=== PATIENT | male | born 1965 | race Caucasian/White ===

== ENCOUNTER 2022-06-27 10:00 | Emergency (ER) | payer MEDICAID, SELFPAY ==
[2022-06-27 10:09] VITALS: BP 121/89; PULSE 100; RESP 18; TEMP 36.1; O2SAT 92; BMI 25.8
[2022-06-27] MEDS: 0.9 % SODIUM CHLORIDE 1000 ml 1,000 ML 500 ML IV (10:40)
[2022-06-27] MEDS: ONDANSETRON 2 MG/ML inj 4 MG IVP (10:41)
--- NOTE | 2022-06-27 10:44 | ED.GENADULT ---
HPI - General Adult General Time Seen by Provider: 10:44 Date Seen: 06/27/22 Chief complaint: Nausea/Vomiting Stated complaint: Flu like symptoms Time Seen by Provider: 06/27/22 10:29 Source: patient and RN notes reviewed Mode of arrival: ambulatory Limitations: no limitations History of Present Illness HPI narrative: Patient is a 57-year-old male coming in with fevers, nausea, vomiting, diarrhea. On at work after lunch just started to feel really fatigued. Diarrhea ensued after that. Diarrhea is nonbloody. He had nausea and diminished oral intake. He started having vomiting today. No blood in the vomit. Has not been able to really take much in. No coughing. Does have a headache with this. He has had temperatures maybe up to 100? F at home. Has not had any nasal congestion or sore throat. He has had no travel, not aware of ill contacts. States he had COVID when it 1st came out and had a mild coarse. He has had this illness going on close to 2 days now. Denies any abdominal pain with this. Related Data Home Medications Medication Instructions Recorded Confirmed atorvastatin 20 mg tablet 20 mg PO QPM 06/17/22 sildenafil 100 mg tablet 100 mg PO QDAY PRN 06/17/22 tamsulosin 0.4 mg capsule 0.4 mg PO QDAY 06/17/22 Previous Rx's Medication Instructions Recorded bupropion HCl 200 mg tablet,12 hr 200 mg PO BID #180 tabs 06/17/22 sustained-release doxycycline monohydrate 100 mg 100 mg PO BID 10 days #20 caps 06/27/22 capsule ondansetron 4 mg disintegrating 4 mg PO Q6H PRN nausea and 06/27/22 tablet vomiting #20 tabs Allergies Allergy/AdvReac Type Severity Reaction Status Date / Time No Known Drug Allergies Allergy Verified 06/27/22 11:55 Review of Systems Status of ROS: Reports: 10 or more systems reviewed and unremarkable except as noted in History and below Exam Const: Vital Signs, click to edit/add: Vital Signs - 24 hr 06/27/22 10:09 Temperature 96.9 F L Pulse Rate [Right Pulse Oximeter] 100 Respiratory Rate 18 Blood Pressure [Ri ght Upper Arm] 121/89 Pulse Oximetry 92 Oxygen Delivery Me thod Room Air Documenting provider has reviewed patient's vital signs: yes Common normals: no apparent distress, average body habitus, oriented x3, no limitations, healthy appearing and alert General appearance: cooperative, comfortable and diaphoretic Nutritional appearance: thin HENMT: Common normals: normocephalic, head/scalp atraumatic, hearing grossly normal bilaterally, external ears normal, external nose normal, nasal mucous membranes and turbinates normal, moist oral mucous membranes, oropharynx normal, dentition normal and gingiva normal Head and scalp: normocephalic and atraumatic Nose: external nose normal and nasal mucous membranes and turbinates normal External ear: external ears normal Eye: Common normals: PERRL, EOMs intact bilaterally, conjunctivae normal and no scleral icterus Conjunctiva: conjunctiva(e) normal Pupil: PERRL Neck & C-Spine: Common normals: full ROM, no lymphadenopathy, supple, no meningeal signs, no JVD and thyroid normal Thyroid: thyroid normal Resp: Common normals: normal respiratory effort, no retractions, no use of accessory muscles and clear to auscultation bilaterally Auscultation: clear to auscultation bilaterally Cardio: Common normals: no JVD, regular rate, regular rhythm, S1 normal heart sound, S2 normal heart sound, no gallops, no clicks and no murmurs Rate: regular rate Rhythm: regular rhythm Heart sounds: S1 normal and S2 normal GI: Common normals: Normal to inspection, nondistended, normoactive bowel sounds present, soft to palpation, non-tender, no hepatosplenomegaly, no masses and no bruits Palpation: soft and no hepatosplenomegaly Neuro: Common normals: oriented x3 Sensorium/orientation: alert Meningeal signs: no meningeal signs Course Course Hospital Course: Reviewed with patient that this certainly sounds viral. We will check COVID, I checked basic labs. We will start an IV and give him a L normal saline over 2 hours, 4 mg IV Zofran and 15 mg IV Toradol. This time he does not seem to need any imaging, abdominal exam is benign on palpation and no abdominal pain. Reevaluation(s) Reevaluation #1: Reviewed with patient his elevated white blood count and significantly elevated CRP. We will proceed with CT abdomen pelvis with IV contrast. I have ordered for ova parasite, stool culture and C difficile study. He has never had a diagnosis of C difficile colitis prior. He has had no recent antibiotic use. Time: 11:45 Reevaluation #2: Reviewed with patient that on my preliminary review of his chest x-ray there is significant right-sided lower lobe pneumonia. I am going to give him IV doxycycline to ensure that he can tolerate it. He will discharge to home likely at this point. Time: 13:18 Vital Signs Vital signs: Initial Vital Signs Temperature 96.9 F L 06/27/22 10:09 Temperature Source Temporal Artery Scan 06/27/22 10:09 Pulse Rate 100 06/27/22 10:09 Respiratory Rate 18 06/27/22 10:09 Blood Pressure 121/89 06/27/22 10:09 Blood Pressure Mean 99 06/27/22 10:09 Blood Pressure Position Sitting 06/27/22 10:09 Pulse Oximetry 92 06/27/22 10:09 Oxygen Delivery Method 06/27/22 10:09 Vital Signs Temperature 96.9 F L 06/27/22 10:09 Pulse Rate 100 06/27/22 10:09 Respiratory Rate 18 06/27/22 10:09 Blood Pressure 121/89 06/27/22 10:09 Pulse Oximetry 92 06/27/22 10:09 Oxygen Delivery Method 06/27/22 10:09 Temperature 96.9 F L 06/27/22 10:09 Pulse Rate 100 06/27/22 10:09 Respiratory Rate 18 06/27/22 10:09 Blood Pressure 121/89 06/27/22 10:09 Pulse Oximetry 92 06/27/22 10:09 Oxygen Delivery Method 06/27/22 10:09 Medical Decision Making Lab Data Lab results reviewed: Yes I reviewed the patient's lab results Labs: Lab Results 06/27/22 06/27/22 06/27/22 Range/Units 10:15 10:40 10:40 WBC 15.86 H (4.50-11.00) K/uL RBC 5.77 (4.30-5.90) m/uL Hgb 17.0 (13.5-17.5) gm/dL Hct 49.2 (37.0-53.0) % MCV 85 (80-100) fL MCH 30 (26-34) pg MCHC 35 (32-36) gm/dL RDW Coeff of Aga 12.9 (11.5-15.5) % Plt Count 171 (140-440) K/uL Neut % (Auto) 89.6 H (42.0-72.0) % Lymph % (Auto) 2.8 L (20-44) % [place] % (Auto) 6.4 (0.0-11.0) % Eos % (Auto) 0.5 (0.0-7.0) % Baso % (Auto) 0.1 (0.0-3.0) % Neut # (Auto) 14.20 H (1.7-7.0) K/uL Lymph # (Auto) 0.40 L (0.90-2.90) K/uL [place] # (Auto) 1.00 H (0.00-0.90) K/UL Eos # (Auto) 0.10 (0.00-0.50) K/uL Baso # (Auto) 0.00 (0.00-0.30) K/uL Abs Immat Gran (auto) 0.10 (0.00-0.30) K/uL Sodium 131 L (135-149) mmol/L Potassium 3.6 (3.6-5.1) mmol/L Chloride 96 (96-114) mmol/L Carbon Dioxide 25 (20-32) mmol/L BUN 23 (7-30) mg/dL Creatinine 1.1 (0.5-1.5) mg/dL Estimated Creat Clear 74.09 Estimated GFR 78 ml/min Glucose 154 H (60-115) mg/dL Lactate (0.5-1.9) mmol/L Calcium 8.8 (8.4-10.6) mg/dL Total Bilirubin 0.5 (0.1-1.5) mg/dL AST 28 (12-35) U/L ALT 24 (4-50) U/L Alkaline Phosphatase 77 (40-150) U/L C-Reactive Protein 26.4 H (0.5-1.0) mg/dL Total Protein 7.8 (6.0-8.3) g/dL Albumin 4.3 (3.3-5.0) g/dL SARS-CoV-2 (PCR) Negative SARS-CoV-2 (Negative) Influenza Type A (PCR) Negative PCR FLU A (Negative) Influenza Type B (PCR) Negative PCR FLU B (Negative) RSV (PCR) Negative PCR RSV (Negative) 06/27/22 Range/Units 10:40 WBC (4.50-11.00) K/uL RBC (4.30-5.90) m/uL Hgb (13.5-17.5) gm/dL Hct (37.0-53.0) % MCV (80-100) fL MCH (26-34) pg MCHC (32-36) gm/dL RDW Coeff of Aga (11.5-15.5) % Plt Count (140-440) K/uL Neut % (Auto) (42.0-72.0) % Lymph % (Auto) (20-44) % [place] % (Auto) (0.0-11.0) % Eos % (Auto) (0.0-7.0) % Baso % (Auto) (0.0-3.0) % Neut # (Auto) (1.7-7.0) K/uL Lymph # (Auto) (0.90-2.90) K/uL [place] # (Auto) (0.00-0.90) K/UL Eos # (Auto) (0.00-0.50) K/uL Baso # (Auto) (0.00-0.30) K/uL Abs Immat Gran (auto) (0.00-0.30) K/uL Sodium (135-149) mmol/L Potassium (3.6-5.1) mmol/L Chloride (96-114) mmol/L Carbon Dioxide (20-32) mmol/L BUN (7-30) mg/dL Creatinine (0.5-1.5) mg/dL Estimated Creat Clear Estimated GFR ml/min Glucose (60-115) mg/dL Lactate 1.6 (0.5-1.9) mmol/L Calcium (8.4-10.6) mg/dL Total Bilirubin (0.1-1.5) mg/dL AST (12-35) U/L ALT (4-50) U/L Alkaline Phosphatase (40-150) U/L C-Reactive Protein (0.5-1.0) mg/dL Total Protein (6.0-8.3) g/dL Albumin (3.3-5.0) g/dL SARS-CoV-2 (PCR) (Negative) Influenza Type A (PCR) (Negative) Influenza Type B (PCR) (Negative) RSV (PCR) (Negative) Imaging Data CT scan - abdomen: Attestation: I have reviewed the pertinent imaging results. Radiologist's impression: Patient: DIMA SHEPHERD Facility:?[facility] Patient ID:?[id number] Site Patient ID:?[id number]. Site :?[id number] Study:?CT Abdomen/Pelvis W ISOVUE 370-06/27/2022 12:04:49 PM Ordering Physician:Issa Lubin Final Report: INDICATION: Diarrhea, leukocytosis. TECHNIQUE: CT abdomen and pelvis with intravenous contrast, 85 mL of Isovue-370. Coronal and sagittal reformats. COMPARISON: CT 12/13/2016. FINDINGS: Partially imaged consolidation and heterogeneous ground-glass opacities in the imaged posterior right lower lobe. Normal liver contour. No suspicious hepatic lesion. The portal and hepatic veins are patent. No biliary dilatation. The gallbladder, pancreas, spleen, and adrenals are unremarkable. Symmetric renal enhancement. No hydronephrosis bilaterally. Unremarkable bladder and prostate. Scattered colonic diverticulosis without acute inflammatory changes. The bowel appears normal in caliber and enhancement diffusely. No free air, free fluid, focal collection, or lymphadenopathy. Normal caliber abdominal aorta with mild-moderate atherosclerotic changes. Lower lumbar spondylosis. IMPRESSION: 1. Posterior right lower lobe heterogeneous opacities are partially imaged and nonspecific, but suspicious for pneumonia. 2. No acute abdominal/pelvic findings. Dictated by Mark Ramos MD @ 06/27/2022 12:31:44 PM Please note that all CT scans at this facility use dose modulation, iterative reconstruction, and/or weight-based dosing when appropriate to reduce radiation dose to as low as reasonably achievable. Dictated by: Mark Ramos MD @ 06/27/2022 12:31:48 (Electronic Signature) Chest x-ray: Attestation: I have reviewed the pertinent imaging results. Radiologist's impression: Patient: DIMA SHEPHERD Facility:?[facility] Patient ID:?[id number] Site Patient ID:?[id number]. Site :?[id number] Study:?XRay Chest -06/27/2022 12:55:32 PM Ordering Physician:Issa Lubin Final Report: INDICATION: Abnormal abdominal CT with pathology in the lower lobe right lung. COMPARISON: CT abdomen and pelvis June 27, 2022. TECHNIQUE: Portable AP chest. FINDINGS: Even though there is infiltrate in the right lower lobe, without lateral radiograph difficult to adequately evaluate. No pneumothorax or pleural effusion. Normal size cardiac silhouette. IMPRESSION: Pneumonic infiltrates right lower lobe. Dictated by Vinh Cardenas MD @ 06/27/2022 1:16:47 PM (Electronic Signature) Critical Care Time Critical Care Time Critical Care Time: No Discharge Plan Discharge Clinical Impression: Nausea, vomiting, and diarrhea, Community acquired pneumonia of right lower lobe of lung Patient Disposition: Home, Self-Care Condition: Stable Instructions: Community Acquired Pneumonia (ED) Additional Instructions: Next dose of oral antibiotic to be taken this evening, then take twice daily until completed. Can use the ondansetron to help with any further nausea, followup prescription instructions. Recheck in clinic in the next week. If you do are not improving as far as nausea vomiting or diarrhea and unable to take oral antibiotics, develop difficulty breathing or shortness of breath, do need to be re-evaluated. Activity Level: Activity as Tolerated Prescriptions: New doxycycline monohydrate 100 mg capsule 100 mg PO BID 10 Days Qty: 20 0RF ondansetron 4 mg tablet,disintegrating 4 mg PO Q6H PRN (Reason: nausea and vomiting) Qty: 20 0RF No Action atorvastatin 20 mg tablet 20 mg PO QPM sildenafil 100 mg tablet 100 mg PO QDAY PRN Rx Instructions: administer 30 minutes to 4 hours before activity tamsulosin 0.4 mg capsule 0.4 mg PO QDAY bupropion HCl 200 mg tablet sustained-release 12 hr 200 mg PO BID Qty: 180 3RF Follow Up/Referrals: Ananda Richardson MD [Primary Care Provider] - Stand Alone Forms: [employer] Info Instructions
[2022-06-27] MEDS: KETOROLAC 15 MG/ML inj IVP (10:58)
[2022-06-27 10:59] LABS: Lactate* 1.6 mmol/L (0.5-1.9)
[2022-06-27 11:03] LABS: Basophils Percent Auto 0.1 % (0.0-3.0); Eosinophils Percent Auto 0.5 % (0.0-7.0); Hematocrit 49.2 % (37.0-53.0); Lymphocytes Percent Auto 2.8 % (20-44); Mean Corpuscular HGB Conc 35 gm/dL (32-36); Mean Corpuscular Hemoglobin 30 pg (26-34); Mean Corpuscular Volume 85 fL (80-100); Monocytes Percent Auto 6.4 % (0.0-11.0); Neutrophils Percent Auto 89.6 % (42.0-72.0); Platelet Count* 171 K/uL (140-440); RDW Coefficient of Variation % 12.9 % (11.5-15.5); Red Blood Count 5.77 m/uL (4.30-5.90); White Blood Count* 15.86 K/uL (4.50-11.00)
[2022-06-27 11:04] LABS: PCR FLU A Negative PCR FLU A (Negative); PCR FLU B Negative PCR FLU B (Negative); PCR RSV Negative PCR RSV (Negative)
[2022-06-27 11:10] LABS: Slide Review Reflex No
[2022-06-27 11:15] LABS: Chloride* 96 mmol/L (96-114)
[2022-06-27 11:16] LABS: Albumin* 4.3 g/dL (3.3-5.0); Potassium* 3.6 mmol/L (3.6-5.1); Sodium* 131 mmol/L (135-149)
[2022-06-27 11:18] LABS: Creatinine* 1.1 mg/dL (0.5-1.5); Est. Creatinine Clearance* 74.09; Estimated Glomerular Filt Rate 78 ml/min
[2022-06-27 11:19] LABS: Alanine Aminotransferase* 24 U/L (4-50); Alkaline Phosphatase* 77 U/L (40-150); Aspartate Amino Transferase* 28 U/L (12-35); Bilirubin Total* 0.5 mg/dL (0.1-1.5); Blood Urea Nitrogen* 23 mg/dL (7-30); Calcium* 8.8 mg/dL (8.4-10.6); Carbon Dioxide* 25 mmol/L (20-32); Glucose* 154 mg/dL (60-115); Total Protein* 7.8 g/dL (6.0-8.3)
[2022-06-27 11:34] LABS: C Reactive Protein* 26.4 mg/dL (0.5-1.0)
--- NOTE | 2022-06-27 11:42 | CRLHL7_ITS ---
For Patients: As a result of the Century Cures Act, medical imaging exams and procedure reports are released immediately into your electronic medical record. You may view this report before your referring provider. If you have questions, please contact your health care provider. INDICATION: Diarrhea, leukocytosis. TECHNIQUE: CT abdomen and pelvis with intravenous contrast, 85 mL of Isovue-370. Coronal and sagittal reformats. COMPARISON: CT 12/13/2016. FINDINGS: Partially imaged consolidation and heterogeneous ground-glass opacities in the imaged posterior right lower lobe. Normal liver contour. No suspicious hepatic lesion. The portal and hepatic veins are patent. No biliary dilatation. The gallbladder, pancreas, spleen, and adrenals are unremarkable. Symmetric renal enhancement. No hydronephrosis bilaterally. Unremarkable bladder and prostate. Scattered colonic diverticulosis without acute inflammatory changes. The bowel appears normal in caliber and enhancement diffusely. No free air, free fluid, focal collection, or lymphadenopathy. Normal caliber abdominal aorta with mild-moderate atherosclerotic changes. Lower lumbar spondylosis. IMPRESSION: 1. Posterior right lower lobe heterogeneous opacities are partially imaged and nonspecific, but suspicious for pneumonia. 2. No acute abdominal/pelvic findings. Dictated by Mark Ramos MD @ 06/27/2022 12:31:44 PM Please note that all CT scans at this facility use dose modulation, iterative reconstruction, and/or weight-based dosing when appropriate to reduce radiation dose to as low as reasonably achievable. Dictated by: Mark Ramos MD @ 06/27/2022 12:31:48 (Electronically Signed)
[2022-06-27 11:51] LABS: SARS PCR* Negative SARS-CoV-2 (Negative)
[2022-06-27 12:15] VITALS: BP 108/59; PULSE 79; RESP 18; O2SAT 95
--- NOTE | 2022-06-27 12:35 | CRLHL7_ITS ---
For Patients: As a result of the Century Cures Act, medical imaging exams and procedure reports are released immediately into your electronic medical record. You may view this report before your referring provider. If you have questions, please contact your health care provider. INDICATION: Abnormal abdominal CT with pathology in the lower lobe right lung. COMPARISON: CT abdomen and pelvis June 27, 2022. TECHNIQUE: Portable AP chest. FINDINGS: Even though there is infiltrate in the right lower lobe, without lateral radiograph difficult to adequately evaluate. No pneumothorax or pleural effusion. Normal size cardiac silhouette. IMPRESSION: Pneumonic infiltrates right lower lobe. Dictated by Vinh Cardenas MD @ 06/27/2022 1:16:47 PM (Electronically Signed)
[2022-06-27] MEDS: DOXYCYCLINE HYCLATE 100 MG in 0.9 % SODIUM CHLORIDE Mini-bag 100 ML IVPB (13:54)
[2022-06-27 14:50] VITALS: BP 120/71; PULSE 82; RESP 18; O2SAT 95
--- NOTE | 2022-06-27 16:05 | PC.NURSE ---
pt left with at this time, ambulatory to car
== END 2022-06-27 16:05 | disposition home or self-care (01) ==
PROVIDERS: Emergency Provider Family Medicine; PCP Family Medicine
DX: J18.9 Pneumonia, unspecified organism (principal); R11.2 Nausea with vomiting, unspecified; R19.7 Diarrhea, unspecified
CPT/HCPCS: 36415; 71045; 74177; 80053; 83605; 85025; 86140; 87045; 87046; 87177; 87209; 87427; 87493; 87502; 87634; 87635; 96365; 96375; 99284; J1885; J2405; J7030; Q9967

== ENCOUNTER 2022-06-28 15:28 | Observation (INO) | payer MEDICAID, SELFPAY ==
[2022-06-28] VITALS (8 sets, daily range): BP systolic 109–141; BP diastolic 67–100; PULSE 81–113; RESP 18–25; TEMP 37.4–39.5; O2SAT 89–91; BMI 25.8; BMI 26.2
--- NOTE | 2022-06-28 16:00 | CRLHL7_ITS ---
For Patients: As a result of the Century Cures Act, medical imaging exams and procedure reports are released immediately into your electronic medical record. You may view this report before your referring provider. If you have questions, please contact your health care provider. INDICATION: Pneumonia TECHNIQUE: Two view chest. Comparison chest x-rays 06/27/22 FINDINGS: Normal cardiac and mediastinal silhouette. Right lower lobe airspace consolidation stable to minimally worse. Left lung appears clear. No effusion is seen. Dictated by Adenike Tran MD @ 06/28/2022 5:18:22 PM (Electronically Signed)
--- NOTE | 2022-06-28 16:01 | ED.GENADULT ---
HPI - General Adult General Chief complaint: Headache/Migraine Stated complaint: Pnuemonia Time Seen by Provider: 06/28/22 15:48 History of Present Illness HPI narrative: This 57-year-old male was seen yesterday and diagnosed with pneumonia and started on doxycycline. A chest x-ray showed a right lower lobe pneumonia. I reviewed his record then and saw that his heart rate and oximetry were in normal range. His oximetry yesterday was 100% on room air. Today he states he feels worse despite taking the doxycycline. He arrives with a pulse of 113, temperature at 100? F, and oximetry at 90% on room air. He reports a headache and generalized malaise. Related Data Home Medications Medication Instructions Recorded Confirmed atorvastatin 20 mg tablet 20 mg PO QPM 06/17/22 sildenafil 100 mg tablet 100 mg PO QDAY PRN 06/17/22 tamsulosin 0.4 mg capsule 0.4 mg PO QDAY 06/17/22 Previous Rx's Medication Instructions Recorded bupropion HCl 200 mg tablet,12 hr 200 mg PO BID #180 tabs 06/17/22 sustained-release doxycycline monohydrate 100 mg 100 mg PO BID 10 days #20 caps 06/27/22 capsule ondansetron 4 mg disintegrating 4 mg PO Q6H PRN nausea and 06/27/22 tablet vomiting #20 tabs Allergies Allergy/AdvReac Type Severity Reaction Status Date / Time No Known Drug Allergies Allergy Verified 06/27/22 11:55 Review of Systems Status of ROS: Reports: 10 or more systems reviewed and unremarkable except as noted in History and below Narrative: Constitutional: No weight gain or loss. Eyes: No discharge. No vision changes. HENT: No congestion, no sore throat, no ear pain. He reports a headache. Cardiovascular: No chest pain, no palpitations. Respiratory: Shortness of breath. Gastrointestinal: No abdominal pain, no vomiting, no diarrhea. Genitourinary: No dysuria, no hematuria. Musculoskeletal: Normal range of motion. Skin: No rashes, no pruritis. Neurological: No weakness, sensory change, speech change. Lightheaded as is reported. Endo/Heme/Allergies: No bruising or bleeding. No polydipsia. Pysch: no suicidality, no anxiety, no insomnia. All other systems reviewed and are negative. Exam Narrative: Exam Narrative: Constitutional: Well-developed, well-nourished, no acute distress. HEENT: Normocephalic, atraumatic. Neck: Normal range of motion. Nontender. Supple. Heart: Regular. No murmurs. Tachycardia. Intact distal pulses. Lungs: Clear to auscultation. No chest discomfort. No wheezes, rhonchi, or rales. Abdomen: Normal bowel sounds. Nontender. No rebound tenderness. Genitalia: Deferred. Back: No midline tenderness. Normal range of motion. Extremities: Normal range of motion. No injury. No pedal edema. Skin: Intact. No rash. Warm. No erythema or pallor. Neurologic: No altered sensation. No weakness. Alert and oriented. Psychiatric: No suicidality. No anxiety or depression. No insomnia. Nursing notes and vitals signs are reviewed. Const: Vital Signs, click to edit/add: Vital Signs - 24 hr 06/28/22 15:45 Temperature 100.0 F H Pulse Rate [Right Pulse Oximeter] 113 H Respiratory Rate 20 Blood Pressure [Ri ght Upper Arm] 141/100 H Pulse Oximetry 90 Oxygen Delivery Me thod Room Air Course Vital Signs Vital signs: Initial Vital Signs Temperature 100.0 F H 06/28/22 15:45 Temperature Source Temporal Artery Scan 06/28/22 15:45 Pulse Rate 113 H 06/28/22 15:45 Respiratory Rate 20 06/28/22 15:45 Blood Pressure 141/100 H 06/28/22 15:45 Blood Pressure Mean 113 06/28/22 15:45 Blood Pressure Position Sitting 06/28/22 15:45 Pulse Oximetry 90 06/28/22 15:45 Oxygen Delivery Method 06/28/22 15:45 Vital Signs Temperature 100.0 F H 06/28/22 15:45 Pulse Rate 113 H 06/28/22 15:45 Respiratory Rate 20 06/28/22 15:45 Blood Pressure 141/100 H 06/28/22 15:45 Pulse Oximetry 90 06/28/22 15:45 Oxygen Delivery Method 06/28/22 15:45 Temperature 100.0 F H 06/28/22 15:45 Pulse Rate 113 H 06/28/22 15:45 Respiratory Rate 20 06/28/22 15:45 Blood Pressure 141/100 H 06/28/22 15:45 Pulse Oximetry 90 06/28/22 15:45 Oxygen Delivery Method 06/28/22 15:45 Medical Decision Making MDM Narrative Medical decision making narrative: This patient returns with worsening symptoms. He was seen yesterday and diagnosed with pneumonia and received prescription for doxycycline. He has taken this medicine as prescribed but returns today with headache and feeling generally worse. He arrives with oximetry at 90% on room air and has a temperature at 100.0? F. His pulses also a bit tachycardic. An IV was established and labs were drawn. His white count is normalized. Electrolytes are essentially normal however his sodium is a bit low at 128. There was only room in the lab for 1 blood culture to be processed. After this was drawn he received 3.375 g of Zosyn intravenously. I spoke with the hospitalist refrigeration service technician, Dr. Eagle, who agreed to his admission to the hospital. Lab Data Labs: Lab Results 06/28/22 06/28/22 06/28/22 Range/Units 16:26 16:26 16:26 WBC 7.42 (4.50-11.00) K/uL RBC 5.34 (4.30-5.90) m/uL Hgb 15.7 (13.5-17.5) gm/dL Hct 45.2 (37.0-53.0) % MCV 85 (80-100) fL MCH 29 (26-34) pg MCHC 35 (32-36) gm/dL RDW Coeff of Aga 12.9 (11.5-15.5) % Plt Count 147 (140-440) K/uL Neut % (Auto) 88.9 H (42.0-72.0) % Lymph % (Auto) 4.4 L (20-44) % [place] % (Auto) 5.9 (0.0-11.0) % Eos % (Auto) 0.0 (0.0-7.0) % Baso % (Auto) 0.0 (0.0-3.0) % Neut # (Auto) 6.60 (1.7-7.0) K/uL Lymph # (Auto) 0.30 L (0.90-2.90) K/uL [place] # (Auto) 0.40 (0.00-0.90) K/UL Eos # (Auto) 0.00 (0.00-0.50) K/uL Baso # (Auto) 0.00 (0.00-0.30) K/uL Abs Immat Gran (auto) 0.06 (0.00-0.30) K/uL VBG pH 7.505 H (7.32-7.43) VBG pCO2 35 L (40-50) mmHG VBG pO2 34.6 (25-47) mmHG VBG HCO3 27 (21-28) mmol/L Sodium 128 L (135-149) mmol/L Potassium 4.0 (3.6-5.1) mmol/L Chloride 95 L (96-114) mmol/L Carbon Dioxide 27 (20-32) mmol/L BUN 26 (7-30) mg/dL Creatinine 1.0 (0.5-1.5) mg/dL Estimated Creat Clear 81.50 Estimated GFR 88 ml/min Glucose 128 H (60-115) mg/dL Lactate 1.3 (0.5-1.9) mmol/L Calcium 8.2 L (8.4-10.6) mg/dL Imaging Data Chest x-ray: Radiologist's impression: Normal cardiac and mediastinal silhouette. Right lower lobe airspace consolidation stable to minimally worse. Left lung appears clear. No effusion is seen. Discharge Plan Discharge Clinical Impression: Community acquired pneumonia of right lower lobe of lung, Headache Patient Disposition: Admitted As Inpatient Condition: Unchanged Prescriptions: No Action doxycycline monohydrate 100 mg capsule 100 mg PO BID 10 Days Qty: 20 0RF ondansetron 4 mg tablet,disintegrating 4 mg PO Q6H PRN (Reason: nausea and vomiting) Qty: 20 0RF atorvastatin 20 mg tablet 20 mg PO QPM sildenafil 100 mg tablet 100 mg PO QDAY PRN Rx Instructions: administer 30 minutes to 4 hours before activity tamsulosin 0.4 mg capsule 0.4 mg PO QDAY bupropion HCl 200 mg tablet sustained-release 12 hr 200 mg PO BID Qty: 180 3RF Follow Up/Referrals: Ananda Richardson MD [Primary Care Provider] -
[2022-06-28] MEDS: PIPERACILLIN/TAZOBACTAM 3.375 GM in 0.9 % SODIUM CHLORIDE Mini-bag 100 ML IVPB ×2 (16:39→21:40)
[2022-06-28 16:43] LABS: HCO3 VBG 27 mmol/L (21-28); Lactate* 1.3 mmol/L (0.5-1.9); PCO2 VBG 35 mmHG (40-50); PO2 VBG 34.6 mmHG (25-47); pH VBG 7.505 (7.32-7.43)
[2022-06-28 16:45] LABS: Hematocrit 45.2 % (37.0-53.0); Hemoglobin* 15.7 gm/dL (13.5-17.5); Immature Granulocytes Abs Auto 0.06 K/uL (0.00-0.30); Lymphocytes Percent Auto 4.4 % (20-44); Mean Corpuscular HGB Conc 35 gm/dL (32-36); Mean Corpuscular Hemoglobin 29 pg (26-34); Mean Corpuscular Volume 85 fL (80-100); Monocytes Percent Auto 5.9 % (0.0-11.0); Neutrophils Percent Auto 88.9 % (42.0-72.0); Platelet Count* 147 K/uL (140-440); RDW Coefficient of Variation % 12.9 % (11.5-15.5); Red Blood Count 5.34 m/uL (4.30-5.90); White Blood Count* 7.42 K/uL (4.50-11.00)
[2022-06-28] MEDS: HYDROmorphone 0.5 mg/0.5 ml inj IVP (16:52)
[2022-06-28 16:57] LABS: Slide Review Reflex No
[2022-06-28 17:03] LABS: Chloride* 95 mmol/L (96-114); Sodium* 128 mmol/L (135-149)
[2022-06-28 17:06] LABS: Blood Urea Nitrogen* 26 mg/dL (7-30); Carbon Dioxide* 27 mmol/L (20-32); Estimated Glomerular Filt Rate 88 ml/min; Glucose* 128 mg/dL (60-115)
[2022-06-28 17:07] LABS: Calcium* 8.2 mg/dL (8.4-10.6)
[2022-06-28 18:44] LABS: SARS PCR* Negative SARS-CoV-2 (Negative)
--- NOTE | 2022-06-28 19:04 | CRLHL7_ITS ---
For Patients: As a result of the Century Cures Act, medical imaging exams and procedure reports are released immediately into your electronic medical record. You may view this report before your referring provider. If you have questions, please contact your health care provider. HISTORY: Pneumonia. TECHNIQUE: Intravenous contrast enhanced CT of the chest. 95 mL Isovue-370 intravenous contrast administered. COMPARISON: Radiographs 06/28/2022. FINDINGS: There is no acute pulmonary embolism. No ascending aortic aneurysm. The descending thoracic aorta is mildly dilated. The proximal descending thoracic aorta measures 3.4 cm diameter. Trace pericardial fluid likely physiologic. There are enlarged right hilar and subcarinal lymph nodes which may be reactive. Dense consolidation is present within the right lower lobe compatible with pneumonia. Follow-up to confirm appropriate resolution is recommended in this patient with pulmonary emphysema. Mild atelectasis or scarring within the left lower lobe posteriorly. There is no pleural effusion or pneumothorax. Degenerative changes of the thoracic spine. There is mild anterior wedging of a few thoracic vertebral bodies which is likely more chronic. IMPRESSION: 1. Dense consolidation within the right lower lobe compatible with pneumonia. Followup to confirm resolution is recommended in this patient with pulmonary emphysema. 2. Right hilar and subcarinal lymphadenopathy may be reactive and relate to the underlying right lower lobe pneumonia. 3. No acute pulmonary embolism. 4. Mildly dilated descending thoracic aorta measuring 3.4 cm in diameter proximally. Dictated by Vu Sheriff MD @ 06/28/2022 7:44:33 PM Please note that all CT scans at this facility use dose modulation, iterative reconstruction, and/or weight-based dosing when appropriate to reduce radiation dose to as low as reasonably achievable. Dictated by: Vu Sheriff MD @ 06/28/2022 19:44:46 (Electronically Signed)
--- NOTE | 2022-06-28 19:48 | P.IMHP_ITS ---
Hospitalist- H&P: HPI History of Present Illness Date Seen: 06/28/22 Chief complaint: Pnuemonia Narrative: Juno Cunha is a 57 year old male who has not felt well for the past 3 days. He began having symptoms of fever, general malaise, vomiting and diarrhea. He also has had a mild cough as well as poor oral intake and mild headache. Pt presented to the ED yesterday where he was diagnosed with a RLL Pneumonia and discharged on Doxycycline and Zofran. Also noted at that evaluation was a CRP of 26.4 and a WBC of 15.86. Due to his vomiting, he had a CT of the abd and pelvis which showed only RLL Pneumonia with no intraabdominal pathology. Pt also had a chest x ray showing RLL pneumonia. Pt tested negative for COVID at that time but does have a distant history of COVID 19. Pt returned to the ED today feeling worse. He previously had a saturation of 100% on room air. Now his sa turation is 90%. He as also noted to be tachycardic with a rate of 113. Pt's WBC did fall from 15.86 to 7.42 and his chest x ray is largely unchanged. Blood cultures were collected and the pt received an initial dose of Zosyn and was subsequently admitted. I did ask that the patient have a CT of the chest with IV contrast prior to admission. This study showed a dense consolidation in the right lower lobe consistent with pneumonia. No evience of PE or mass. Also noted on today's evaluation was a sodium of 128 and respiratory alkalosis on blood gas. PFSH PFSH Medical History Bursitis of left shoulder Dilation of aorta Elevated PSA Fusion of lumbar spine Hepatitis C Hyperlipidemia Hyponatremia CLARE (obstructive sleep apnea) RLL pneumonia Tobacco use Surgical History (Updated 06/28/22 @ 20:30 by Sebastien Eagle MD) H/O hernia repair History of appendectomy Family History (Updated 06/28/22 @ 20:07 by Sebastien Eagle MD) Father No problems noted. 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 Smoking Status: Current every day smoker What tobacco products do you use: cigarettes Second hand tobacco smoke exposure: No How often do you have a drink containing alcohol: never How often do you have six or more drinks on one occasion: Never AUDIT-C Alcohol total score: 0 Non-prescribed substance use: denies use Meds Home Medications and Allergies Home Medications Medication Instructions Recorded Confirmed Type atorvastatin 20 mg tablet 20 mg PO QPM 06/17/22 06/28/22 History Home Medication Comments: Pt states that he takes Atorvastatin 20 mg daily, Buproprion SR 100 mg twice daily Allergies Allergy/AdvReac Type Severity Reaction Status Date / Time No Known Drug Allergies Allergy Verified 06/27/22 11:55 Exam Narrative: Exam Narrative: EXAM GENERAL: Patient appears comfortable and nontachypnic EYES: No scleral icterus. ENT: oropharynx normal. THYROID: no thyroid nodules or thyromegaly. LYMPH: No supraclavicular or cervical lymphadenopathy. SKIN: Visible skin seen during exam normal or with benign process only. EXT: No dependent lower extremity pedal edema. HEART: Regular rate and rhythm with no murmurs, rubs, or gallops. LUNGS: Decreased breath sounds with rhonchi noted in the right base ABD: Soft, non tender, non distended. PSYCH: Good eye contact, speech is not pressured. Const: Vital Signs, click to edit/add: Vital Signs - 24 hr 06/28/22 15:45 06/28/22 17:43 Temperature 100.0 F H Pulse Rate [Right Pulse Oximeter] 113 H 96 Respiratory Rate 20 25 H Blood Pressure [Ri ght Upper Arm] 141/100 H 120/80 Pulse Oximetry 90 91 Oxygen Delivery Me thod Room Air Room Air Hospitalist - H&P: Result Labs Labs: Short CBC 06/28/22 Range/Units 16:26 WBC 7.42 (4.50-11.00) K/uL Hgb 15.7 (13.5-17.5) gm/dL Hct 45.2 (37.0-53.0) % Plt Count 147 (140-440) K/uL BMP 06/28/22 16:26 Sodium 128 L Potassium 4.0 Chloride 95 L Carbon Dioxide 27 BUN 26 Creatinine 1.0 Glucose 128 H Calcium 8.[address] scan - chest: Radiologist's impression: Dense consolidation in the RLL consistent with pneumonia. No PE or mass. 3.4 cm thorasic aorta also noted. Chest x-ray: Radiologist's impression: Stable findings of RLL Pneumonia compared to yesterday Assessment and Plan Assessment and plan (1) RLL pneumonia: Status: Acute Assessment and Plan: I did review the case with pharmacy who confirmed that continued Zosyn would be a good initial choice of antibiotic which we will continue. I will give an initial dose of Solumedrol and begin Duonebs. Pt has been tachycardic and will receive slow IV hydration overnight. Will repeat CRP now and in am. Pt will be placed on tele and oxymetry and will receive supplemental 0xygen to keep sats greater than 90%. Pt was encouraged to quit smoking and will need a COPD evaluation as an outpt as well as confirmation that his pneumonia resolves. Will obtain CBC and CMP blood gas in the am. Of note, the patient has tested negative for COVID, Influenza and RSV. Pt had a negative CT of the abd yesterday and has a soft abd on exam today. Pt has no nuchal rigidity or meningeal signs. Pt wishes to be a full code. Pt will receive sequentials for DVT prophylaxis. (2) Hyponatremia: Status: Acute Assessment and Plan: Will treat underlying lung infection and will oral fluid restrict with normal saline given overnight. Electrolytes in am. (3) Dilation of aorta: Status: Acute Assessment and Plan: Will need outpt follow up. (4) Depression: Status: Chronic Assessment and Plan: Buproprion Dosing unclear. Pharmacy to clarify in the am. (5) Tobacco use: Status: Chronic Assessment and Plan: Counciled on smoking cessation (6) CLARE (obstructive sleep apnea): Status: Chronic Assessment and Plan: Pt doing well on suplemental oxygen. Pt's will be bringing in his CPAP. (7) Hyperlipidemia: Status: Chronic Assessment and Plan: Continue Atorvastatin (8) Elevated PSA: Status: Chronic Assessment and Plan: Follow up as an outpt (9) Bursitis of left shoulder: Status: Chronic Assessment and Plan: Chronic and stable (10) History of appendectomy: Status: Resolved (11) H/O hernia repair: Status: Resolved (12) Fusion of lumbar spine: Status: Resolved (13) Hepatitis C: Status: Chronic Assessment and Plan: Pt tells me that he has been treated to resolution
[2022-06-28] MEDS: 0.9 % SODIUM CHLORIDE 1000 ml 1,000 ML 100 ML IV (20:52)
[2022-06-28] MEDS: ACETAMINOPHEN 500 MG TABLET 1000 MG PO (20:52)
[2022-06-28 21:13] LABS: Appearance Urine Clear (Clear); Bilirubin Urine Negative (Negative); Blood Urine 2+ (Negative); Color Urine Yellow (Yellow); Glucose Urine Negative (Negative); Ketones Urine Negative (Negative); Leukocyte Esterase Urine Negative (Negative); Nitrite Urine Negative (Negative); Protein Urine 2+ (Negative); pH Urine 6.5 (5.0-8.5)
[2022-06-28 21:22] LABS: RBC Urine 0-2 (0-2); WBC Urine 0-2 (0-5)
[2022-06-28 21:23] LABS: Squamous Epithelial Cell Urine Few (None-Few)
[2022-06-28] MEDS: MORPHINE 4 MG/ML INJ 2 MG IVP (21:26)
[2022-06-28] MEDS: ATORVASTATIN 10 MG TABLET 20 MG PO (21:40)
[2022-06-28] MEDS: IPRAT-ALBUT 0.5-2.5 MG/3 ML NEB 1 NEB IH (21:40)
[2022-06-28] MEDS: METHYLPREDNISOLONE SOD SUCC 40 MG/ML IVP (21:40)
[2022-06-28 22:34] LABS: C Reactive Protein* 8.9 mg/dL (0.5-1.0)
[2022-06-29] MEDS: IPRAT-ALBUT 0.5-2.5 MG/3 ML NEB 1 NEB IH ×2 (02:57→08:39)
[2022-06-29] MEDS: PIPERACILLIN/TAZOBACTAM 3.375 GM in 0.9 % SODIUM CHLORIDE Mini-bag 100 ML IVPB ×2 (02:57→08:39)
[2022-06-29 03:00] VITALS: BP 117/76; PULSE 72; RESP 21; TEMP 36.4; O2SAT 92
--- NOTE | 2022-06-29 05:47 | PC.NURSE ---
Shift [id number] Pt this shift sleeping comfortably in bed. Neb and IV abx given per eMAR. VS stable. Pt sleeping with CPAP, SpO2 above 90% without supplemental O2. No c/o pain. Fluid restriction at 1000ml maintained. Using urinal at bedside independently.
[2022-06-29 07:00] VITALS: BP 112/79; PULSE 87; RESP 20; RESP 21; TEMP 36.8; O2SAT 92
[2022-06-29 07:15] LABS: Basophils Absolute Auto 0.01 K/uL (0.00-0.30); Basophils Percent Auto 0.1 % (0.0-3.0); Hematocrit 43.4 % (37.0-53.0); Hemoglobin* 14.7 gm/dL (13.5-17.5); Immature Granulocytes Abs Auto 0.02 K/uL (0.00-0.30); Lymphocytes Percent Auto 4.6 % (20-44); Mean Corpuscular HGB Conc 34 gm/dL (32-36); Mean Corpuscular Hemoglobin 29 pg (26-34); Mean Corpuscular Volume 87 fL (80-100); Monocytes Percent Auto 4.9 % (0.0-11.0); Neutrophils Percent Auto 90.1 % (42.0-72.0); Platelet Count* 152 K/uL (140-440); RDW Coefficient of Variation % 13.1 % (11.5-15.5); Red Blood Count 5.02 m/uL (4.30-5.90); White Blood Count* 7.82 K/uL (4.50-11.00)
[2022-06-29 07:22] LABS: Slide Review Reflex No
[2022-06-29 07:29] LABS: Albumin* 3.1 g/dL (3.3-5.0); Chloride* 95 mmol/L (96-114)
[2022-06-29 07:30] LABS: Potassium* 3.6 mmol/L (3.6-5.1); Sodium* 130 mmol/L (135-149)
[2022-06-29 07:32] LABS: Aspartate Amino Transferase* 46 U/L (12-35); Bilirubin Total* 0.4 mg/dL (0.1-1.5); Carbon Dioxide* 31 mmol/L (20-32); Creatinine* 1.2 mg/dL (0.5-1.5); Est. Creatinine Clearance* 65.71; Estimated Glomerular Filt Rate 71 ml/min
[2022-06-29 07:33] LABS: Alanine Aminotransferase* 32 U/L (4-50); Alkaline Phosphatase* 56 U/L (40-150); Blood Urea Nitrogen* 25 mg/dL (7-30); Glucose* 166 mg/dL (60-115)
[2022-06-29] MEDS: 0.9 % SODIUM CHLORIDE 1000 ml 1,000 ML 100 ML IV (07:42)
[2022-06-29 07:51] LABS: C Reactive Protein* 23.2 mg/dL (0.5-1.0)
--- NOTE | 2022-06-29 09:31 | P.DS_ITS ---
DS: Providers Provider Date Seen: 06/29/22 Date of admission: 06/28/22 19:06 Primary care physician: Ananda Richardson MD Admitting Clinician: Maira Skinner MD Attending Physician on discharge: Telly Chand MD Date of Discharge: 06/29/22 DS: Diagnosis Discharge Diagnosis (1) RLL pneumonia: Status: Acute Problem details: With hypoxic respiratory failure now improved (2) COPD exacerbation: Status: Acute Problem details: Acute exacerbation now improved (3) Tobacco use: Status: Chronic (4) Hyponatremia: Status: Acute Problem details: Improved DS: Summary Hospital Course Hospital Course: 57-year-old male admitted to the hospital with fever, nausea and vomiting and diarrhea. Profound headache, fatigue and malaise. Symptoms began 4 days ago on and have progressively gotten worse. On Wednesday he was seen in the emergency room and diagnosed with right lower lobe pneumonia. Started on doxycycline. Continue to get worse and was admitted to the hospital. On admission he was found to have hypoxia and required 1 L of oxygen per nasal cannula to maintain O2 sats of 90%. He was treated with piperacillin tazobactam and Solu-Medrol and inhaled bronchodilators. Overnight he has weaned off of oxygen. He is return to eating a normal diet. His fever has resolved. Any is feeling much better overall. On admission he was also found to have a sodium of 128. This was thought secondary to poor oral intake with recurrent vomiting as well as his pneumonia and COPD. Sodium improved to 130 today. Status at Discharge Functional status at discharge: independent ambulation Overall status at discharge: patient is progressing back to baseline Time Spent with Patient Time attestation: Total time spent providing and/or coordinating discharge services: 40 minutes Time spent: Greater than 30 minutes Exam Narrative: Exam Narrative: He is alert and appears in no distress. Sitting in bed without supplemental oxygen. He gives his own history. Eyes normal. Oropharynx is dry mucous membranes. Neck is supple without mass or adenopathy. Respirations with diminished breath sounds throughout all lung [place]. Notably decreased breath sounds in the right lower lobe compared to the left lower lobe. Few basilar crackles on the right side as well. Mildly prolonged expiratory phase. Fair to poor air exchange in all lung h[place]. No marked wheezing. Cardiovascular: S1, S2, regular rate and rhythm. No murmur gallop or rub. Abdomen: Bowel sounds active. Abdomen is soft without tenderness or mass. No edema. Const: Vital Signs, click to edit/add: Vital Signs - 24 hr 06/28/22 15:45 06/28/22 17:43 06/28/22 20:07 Temperature 100.0 F H Pulse Rate [Right Pulse Oximeter] 113 H 96 Respiratory Rate 20 25 H Blood Pressure [Le ft Arm] Blood Pressure [Ri ght Upper Arm] 141/100 H 120/80 Pulse Oximetry 90 91 90 Oxygen Delivery Me thod Room Air Room Air Room Air Oxygen Flow Rate 06/28/22 20:55 06/28/22 16:25 06/28/22 20:52 Temperature 103.1 F H 103.1 F H Pulse Rate [Right Pulse Oximeter] 95 Respiratory Rate 22 Blood Pressure [Le ft Arm] 127/81 Blood Pressure [Ri ght Upper Arm] Pulse Oximetry 90 91 Oxygen Delivery Me thod Room Air Nasal Cannula Oxygen Flow Rate 2 06/28/22 20:37 06/28/22 23:00 06/28/22 23:00 Temperature 99.3 F Pulse Rate [Right Pulse Oximeter] 81 Respiratory Rate 18 18 Blood Pressure [Le ft Arm] 109/67 Blood Pressure [Ri ght Upper Arm] Pulse Oximetry 91 89 Oxygen Delivery Me thod Nasal Cannula Room Air CPAP Oxygen Flow Rate 1 06/29/22 03:00 06/29/22 07:00 06/29/22 07:00 Temperature 97.6 F 98.2 F Pulse Rate [Right Pulse Oximeter] 72 87 87 Respiratory Rate 21 21 20 Blood Pressure [Le ft Arm] 117/76 112/79 Blood Pressure [Ri ght Upper Arm] Pulse Oximetry 92 92 Oxygen Delivery Me thod Room Air CPAP Room Air CPAP Oxygen Flow Rate 0 Documenting provider has reviewed patient's vital signs: yes DS: Data Data Completed and Pending Labs on day of discharge: Labs from last 24 hours 06/29/22 06/29/22 06/28/22 06:24 06:24 20:30 WBC 7.82 RBC 5.02 Hgb 14.7 Hct 43.4 MCV 87 MCH 29 MCHC 34 RDW Coeff of Aga 13.1 Plt Count 152 Neut % (Auto) 90.1 H Lymph % (Auto) 4.6 L [place] % (Auto) 4.9 Eos % (Auto) 0.0 Baso % (Auto) 0.1 Neut # (Auto) 7.00 Lymph # (Auto) 0.40 L [place] # (Auto) 0.40 Eos # (Auto) 0.00 Baso # (Auto) 0.01 Abs Immat Gran (auto) 0.02 VBG pH VBG pCO2 VBG pO2 VBG HCO3 Sodium 130 L Potassium 3.6 Chloride 95 L Carbon Dioxide 31 BUN 25 Creatinine 1.2 Estimated Creat Clear 65.71 Estimated GFR 71 Glucose 166 H Lactate Calcium 8.0 L Total Bilirubin 0.4 AST 46 H ALT 32 Alkaline Phosphatase 56 C-Reactive Protein 23.2 H Total Protein 6.0 Albumin 3.1 L Urine Color Yellow Urine Appearance Clear Urine pH 6.5 Ur Specific [place] 1.020 Urine Protein 2+ A Urine Glucose (UA) Negative Urine Ketones Negative Urine Blood 2+ A Urine Nitrite Negative Urine Bilirubin Negative Urine Urobilinogen 1.0 Ur Leukocyte Esterase Negative Urine RBC 0-2 Urine WBC 0-2 Ur Squamous Epith Cells Few Urine Bacteria None SARS-CoV-2 (PCR) 06/28/22 06/28/22 06/28/22 17:48 16:26 16:26 WBC RBC Hgb Hct MCV MCH MCHC RDW Coeff of Aga Plt Count Neut % (Auto) Lymph % (Auto) [place] % (Auto) Eos % (Auto) Baso % (Auto) Neut # (Auto) Lymph # (Auto) [place] # (Auto) Eos # (Auto) Baso # (Auto) Abs Immat Gran (auto) VBG pH 7.505 H VBG pCO2 35 L VBG pO2 34.6 VBG HCO3 27 Sodium Potassium Chloride Carbon Dioxide BUN Creatinine Estimated Creat Clear Estimated GFR Glucose Lactate 1.3 Calcium Total Bilirubin AST ALT Alkaline Phosphatase C-Reactive Protein 8.9 H Total Protein Albumin Urine Color Urine Appearance Urine pH Ur Specific [place] Urine Protein Urine Glucose (UA) Urine Ketones Urine Blood Urine Nitrite Urine Bilirubin Urine Urobilinogen Ur Leukocyte Esterase Urine RBC Urine WBC Ur Squamous Epith Cells Urine Bacteria SARS-CoV-2 (PCR) Negative SARS-CoV-2 06/28/22 06/28/22 16:26 16:26 WBC 7.42 RBC 5.34 Hgb 15.7 Hct 45.2 MCV 85 MCH 29 MCHC 35 RDW Coeff of Aga 12.9 Plt Count 147 Neut % (Auto) 88.9 H Lymph % (Auto) 4.4 L [place] % (Auto) 5.9 Eos % (Auto) 0.0 Baso % (Auto) 0.0 Neut # (Auto) 6.60 Lymph # (Auto) 0.30 L [place] # (Auto) 0.40 Eos # (Auto) 0.00 Baso # (Auto) 0.00 Abs Immat Gran (auto) 0.06 VBG pH VBG pCO2 VBG pO2 VBG HCO3 Sodium 128 L Potassium 4.0 Chloride 95 L Carbon Dioxide 27 BUN 26 Creatinine 1.0 Estimated Creat Clear 81.50 Estimated GFR 88 Glucose 128 H Lactate Calcium 8.2 L Total Bilirubin AST ALT Alkaline Phosphatase C-Reactive Protein Total Protein Albumin Urine Color Urine Appearance Urine pH Ur Specific [place] Urine Protein Urine Glucose (UA) Urine Ketones Urine Blood Urine Nitrite Urine Bilirubin Urine Urobilinogen Ur Leukocyte Esterase Urine RBC Urine WBC Ur Squamous Epith Cells Urine Bacteria SARS-CoV-2 (PCR) Imaging CT scan - chest: Radiologist's impression: [place] [address] Diagnostic Imaging Report Patient: Juno Cunha MR#: [id number] : 1965 Acct:[id number] Loc: [id number] Service Date: 06/28/[address]: Maira Skinner M.D. Ordering Physician: Ananda Pierre M.D. Date of Service: 06/28/22 Procedure(s): CT chest w con Accession Number(s): [id number] cc: Ananda Pierre M.D.; Ananda Richardson M.D.~ For Patients:? As a result of the 21st Century Cures Act, medical imaging exams and procedure reports are released immediately into your electronic medical record.? You may view this report before your referring provider.? If you have questions, please contact your health care provider. HISTORY: Pneumonia. TECHNIQUE: Intravenous contrast enhanced CT of the chest. 95 mL Isovue-370 intravenous contrast administered. COMPARISON: Radiographs 06/28/2022. FINDINGS: There is no acute pulmonary embolism. No ascending aortic aneurysm. The descending thoracic aorta is mildly dilated. The proximal descending thoracic aorta measures 3.4 cm diameter. Trace pericardial fluid likely physiologic. There are enlarged right hilar and subcarinal lymph nodes which may be reactive. Dense consolidation is present within the right lower lobe compatible with pneumonia. Follow-up to confirm appropriate resolution is recommended in this patient with pulmonary emphysema. Mild atelectasis or scarring within the left lower lobe posteriorly. There is no pleural effusion or pneumothorax. Degenerative changes of the thoracic spine. There is mild anterior wedging of a few thoracic vertebral bodies which is likely more chronic. IMPRESSION: 1. Dense consolidation within the right lower lobe compatible with pneumonia. Followup to confirm resolution is recommended in this patient with pulmonary emphysema. 2. Right hilar and subcarinal lymphadenopathy may be reactive and relate to the underlying right lower lobe pneumonia. 3. No acute pulmonary embolism. 4. Mildly dilated descending thoracic aorta measuring 3.4 cm in diameter proximally. Dictated by Vu Sheriff MD @ 06/28/2022 7:44:33 PM Please note that all CT scans at this facility use dose modulation, iterative reconstruction, and/or weight-based dosing when appropriate to reduce radiation dose to as low as reasonably achievable. Dictated by: Vu Sheriff MD @ 06/28/2022 19:44:46 Discharge Plan Discharge Disposition: Home, Self-Care Date of Admission: 06/28/22 19:06 Primary Care Provider: Ananda Richardson Condition: Unchanged Anticipated Discharge Date/Time: 06/29/22 13:00 Discharge Medications: New prednisone 20 mg tablet 40 mg PO DAILY Qty: 10 0RF albuterol sulfate 90 mcg/actuation HFA aerosol inhaler 1 inh inhalation QID PRN (Reason: shortness of breath or wheezing) Qty: 8.5 0RF azithromycin 250 mg tablet See Taper PO DAILY 6 Days Qty: 6 0RF Taper: Z-HARSH 500 mg Q24H for 1 Day and 0 Hour 250 mg Q24H for 4 Days and 0 Hour Rx Instructions: start on day 2 of therapy amoxicillin-pot clavulanate 875-125 mg tablet 1 tab PO Q12H Qty: 10 0RF Continued ondansetron 4 mg tablet,disintegrating 4 mg PO Q6H PRN (Reason: nausea and vomiting) Qty: 20 0RF atorvastatin 20 mg tablet 20 mg PO HS bupropion HCl 200 mg tablet sustained-release 12 hr 200 mg PO BID Qty: 180 3RF Discontinued doxycycline monohydrate 100 mg capsule 100 mg PO BID 10 Days Qty: 20 0RF Discharge Orders: Discharge Order (Routine); Ordered 06/29/22 Ordered By: Samuel Chand Activity Restrictions/Additional Instructions: See your doctor in the next week for recheck of your pneumonia and COPD. He will also will need recheck of your sodium level in your blood. Do not work for the next 2 days. After that you may return to work though you are likely to have your normal energy for at least another week. Follow Up Appointments: Ananda Richardson MD [Primary Care Provider] - Forms: [employer] Info Instructions
[2022-06-29] MEDS: predniSONE 20 MG TABLET 40 MG PO (10:55)
[2022-06-29] MEDS: ACETAMINOPHEN 500 MG TABLET 1000 MG PO (11:01)
[2022-06-29] MEDS: cefTRIAXone 1 GM in 0.9 % SODIUM CHLORIDE Mini-bag 100 ML IVPB (12:36)
[2022-06-29] MEDS: AZITHROMYCIN 250 MG TABLET 500 MG PO (12:36)
--- NOTE | 2022-06-29 14:16 | RESP.RT ---
Pt seen this AM, MDI instruct with darin completed. Pt with good technique. Discussed need for him to consider smoking cessation.
--- NOTE | 2022-06-29 14:25 | PC.NURSE ---
d/c instructions reviewed with patient, discharged at 1350 home with spouse on oral abx.
== END 2022-06-29 13:50 | disposition home or self-care (01) ==
LOC: ED 17:38 → MEDSURG 06-29 09:48
PROVIDERS: Admitting Provider Internal Medicine; Emergency Provider Emergency Medicine Emergency Medical Services; PCP Family Medicine; Visit Provider Family Medicine
DX: J18.9 Pneumonia, unspecified organism (principal); F17.210 Nicotine dependence, cigarettes, uncomplicated; J44.1 Chronic obstructive pulmonary disease with (acute) exacerbation; E87.1 Hypo-osmolality and hyponatremia; F32.A Depression, unspecified; G47.33 Obstructive sleep apnea (adult) (pediatric); E78.5 Hyperlipidemia, unspecified; M75.52 Bursitis of left shoulder; R97.20 Elevated prostate specific antigen [PSA]
CPT/HCPCS: 36415; 36600; 71046; 71260; 80048; 80053; 81003; 81015; 82803; 83605; 85025; 86140; 87040; 87635; 93005; 94640; 94761; 96361; 96365; 96366; 96375; 99285; A9270; G0378; J0696; J1170; J2270; J2543; J2920; J7030; J7512; Q9967

== ENCOUNTER 2022-07-13 08:07 | Emergency (ER) | payer MEDICAID, SELFPAY ==
[2022-07-13 08:17] VITALS: BP 116/79; PULSE 83; RESP 18; TEMP 36.3; O2SAT 96; BMI 25.1
--- NOTE | 2022-07-13 08:25 | CRLHL7_ITS ---
For Patients: As a result of the Cures Act, medical imaging exams and procedure reports are released immediately into your electronic medical record. You may view this report before your referring provider. If you have questions, please contact your health care provider. INDICATION: Shortness of breath. TECHNIQUE: CT pulmonary angiogram with 95 cc of Isovue-370 given intravenously. COMPARISON: CT pulmonary angiogram dated 28 June 2022. FINDINGS: No pulmonary emboli. No aneurysmal dilatation of the thoracic aorta. Atherosclerotic vascular calcifications. No mediastinal or hilar adenopathy. No axillary adenopathy. The lungs show emphysema. Consolidation of the posterior aspect of the right lower lobe is slightly improved. Mild left basilar atelectasis/consolidation. No pneumothorax. No focal abnormalities identified in the visualized portions of the liver, spleen, pancreas, adrenal glands, the upper portion the kidneys. Degenerative changes of the spine. Impression : 1. No pulmonary emboli. 2. Consolidation of posterior aspect right lower lobe is slightly improved. 3. Mild left basilar atelectasis/consolidation. 4. Emphysema. Dictated by Juan Miguel Tran MD @ 07/13/2022 10:19:56 AM Please note that all CT scans at this facility use dose modulation, iterative reconstruction, and/or weight-based dosing when appropriate to reduce radiation dose to as low as reasonably achievable. Dictated by: Juan Miguel Tran MD @ 07/13/2022 10:20:04 (Electronically Signed)
--- NOTE | 2022-07-13 08:25 | CRLHL7_ITS ---
For Patients: As a result of the Century Cures Act, medical imaging exams and procedure reports are released immediately into your electronic medical record. You may view this report before your referring provider. If you have questions, please contact your health care provider. INDICATION: Neck pain. TECHNIQUE: CT of the cervical spine without contrast. Coronal and sagittal reformats are included. COMPARISON: None. FINDINGS: No acute fracture or traumatic malalignment of the cervical spine. Craniocervical junction alignment is maintained. Diffuse osteopenia. Diffuse mild to moderate disc degeneration. Multilevel uncovertebral/facet arthrosis with high-grade bony neural foraminal stenosis at C3-4 on the left, C4-5 on the right, C6-7 bilaterally, and mild to moderate elsewhere. Degenerative fusion along the facets at C4-5 on the right and C5-6 on the left. No CT visualized high-grade spinal canal stenosis. Imaged intracranial structures, cervical and paraspinous soft tissues are normal in appearance. Emphysematous changes within the upper lungs. IMPRESSION: 1. No acute fracture or traumatic malalignment of the cervical spine. Please note that all CT scans at this facility use dose modulation, iterative reconstruction, and/or weight-based dosing when appropriate to reduce radiation dose to as low as reasonably achievable. Dictated by Nakul Damon MD @ 07/13/2022 10:00:53 AM (Electronically Signed)
--- NOTE | 2022-07-13 08:29 | ED.GENADULT ---
HPI - General Adult General Time Seen by Provider: 08:29 Date Seen: 07/13/22 Chief complaint: Shortness of Breath/Dyspnea Stated complaint: Shortness of breath/neck pain Time Seen by Provider: 07/13/22 08:08 Source: patient Mode of arrival: ambulatory Limitations: no limitations History of Present Illness HPI narrative: Patient presents to the ER as a 57-year-old male who recently had pneumonia, he is off antibiotics now, and has left-sided chest wall pain with motion or deep breathing and right-sided neck pain. He denies trauma or injury, denies cough, has a history of COPD. He no longer smokes by his report. Pain has been worse today been there for couple days. No leg swelling, edema, bleeding or clotting problems. He has not had a cough, has had COVID remotely but nothing recently had a negative recent test. Carbs the pain is intense in his neck along the muscles on the right side of his neck, and in the left lower chest wall area. No rashes, no skin changes, no weakness Related Data Home Medications Medication Instructions Recorded Confirmed atorvastatin 20 mg tablet 20 mg PO HS 06/17/22 07/02/22 tiotropium bromide 2.5 2 inh inhalation Q24H 07/13/22 07/13/22 mcg/actuation mist for inhalation (Spiriva Respimat) Previous Rx's Medication Instructions Recorded bupropion HCl 200 mg tablet,12 hr 200 mg PO BID #180 tabs 06/17/22 sustained-release ondansetron 4 mg disintegrating 4 mg PO Q6H PRN nausea and 06/27/22 tablet vomiting #20 tabs albuterol sulfate 90 mcg/actuation 1 inh inhalation QID PRN shortness 06/29/22 aerosol inhaler of breath or wheezing #8.5 grams nicotine 21 mg/24 hr daily 1 patch transdermal Q24H #14 ea 07/01/22 transdermal patch zolpidem 10 mg tablet (Ambien) 10 mg PO ONCE #10 tabs 07/02/22 ketorolac 10 mg tablet 10 mg PO Q8H #15 tabs 07/13/22 methylprednisolone 4 mg tablets in See Rx Instructions PO .COMPLEX 07/13/22 a dose pack (Medrol (Thomas)) #21 ea Allergies Allergy/AdvReac Type Severity Reaction Status Date / Time hydrocodone Allergy Unknown Heartburn Verified 07/08/22 11:21 oxycodone Allergy Unknown mood Verified 07/08/22 11:21 Review of Systems Status of ROS: Reports: 10 or more systems reviewed and unremarkable except as noted in History and below [facility] Medical History COPD exacerbation Hyponatremia Surgical History H/O hernia repair History of appendectomy Status post lumbar spinal fusion Family History Father No problems noted. 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 Smoking Status: Former smoker What tobacco products do you use: cigarettes Smoking quit date/years: <= 15 years ago Second hand tobacco smoke exposure: No How often do you have a drink containing alcohol: never How often do you have six or more drinks on one occasion: Never AUDIT-C Alcohol total score: 0 Non-prescribed substance use: denies use service: No Exam Narrative: Exam Narrative: Objective: In general the patient is wincing in mild discomfort alert orient x3 HEENT is unremarkable no facial asymmetry, no scleral icterus Neck is supple but tender along the right cervical strap muscle, limited range of motion in rotation secondary discomfort in the right side of his neck muscles. No palpable warmth or swelling Chest is clear no rales or wheezing after deep breathing, but he did have some rales on presentation the right base with beginning of bruit deep breathing. Deep breathing makes his left-sided chest discomfort worse Abdomen benign Extremities are no edema Neurologic nonfocal Peripheral perfusion is good Skin warm and dry Const: Vital Signs, click to edit/add: Vital Signs - 24 hr 07/13/22 08:17 07/13/22 10:15 Temperature 97.4 F L Pulse Rate [Right Pulse Oximeter] 83 85 Respiratory Rate 18 15 Blood Pressure [Le ft Upper Arm] 116/79 110/74 Pulse Oximetry 96 97 Oxygen Delivery Me thod Room Air Room Air Course Vital Signs Vital signs: Initial Vital Signs Temperature 97.4 F L 07/13/22 08:17 Temperature Source Temporal Artery Scan 07/13/22 08:17 Pulse Rate 83 07/13/22 08:17 Respiratory Rate 18 07/13/22 08:17 Blood Pressure 116/79 07/13/22 08:17 Blood Pressure Mean 91 07/13/22 08:17 Blood Pressure Position Sitting 07/13/22 08:17 Pulse Oximetry 96 07/13/22 08:17 Oxygen Delivery Method 07/13/22 08:17 Vital Signs Temperature 97.4 F L 07/13/22 08:17 Pulse Rate 83 07/13/22 08:17 Respiratory Rate 18 07/13/22 08:17 Blood Pressure 116/79 07/13/22 08:17 Pulse Oximetry 96 07/13/22 08:17 Oxygen Delivery Method 07/13/22 08:17 Temperature 97.4 F L 07/13/22 08:17 Pulse Rate 85 07/13/22 10:15 Respiratory Rate 15 07/13/22 10:15 Blood Pressure 110/74 07/13/22 10:15 Pulse Oximetry 97 07/13/22 10:15 Oxygen Delivery Method 07/13/22 10:15 Medical Decision Making MDM Narrative Medical decision making narrative: Patient has COPD, and recent pneumonia. Rule out pneumonia rule out PE, patient will get a CT scan of his neck and chest, make sure there is no free air, no pneumothorax or pneumonia. Will check EKG and troponin make sure does not acute coronary syndrome although that is unlikely given his presentation. Will given Solu-Medrol IV morphine, Toradol, fluids, monitoring. Addendum: The patient's CT scan of the chest show a resolving pneumonia in the right lower lobe no acute findings, his troponin is negative, other laboratory studies are negative his CT scan of the neck shows chronic degenerative change but no other acute changes his troponin was negative as mention he had no obvious telemetry changes, he has not had a anterior chest pain. The patient did get Toradol Ativan Solu-Medrol and small dose of morphine and fluid. He feels better. At this time I am going to send him home with Toradol and Medrol Dosepak, light activity, off work for few days, recheck with primary care in 2 days return to ED sooner problems concerns difficulty. He was comfortable follow up as directed Lab Data Labs: Lab Results 07/13/22 07/13/22 07/13/22 Range/Units 08:50 08:50 08:50 WBC 7.45 (4.50-11.00) K/uL RBC 4.47 (4.30-5.90) m/uL Hgb 13.0 L (13.5-17.5) gm/dL Hct 40.0 (37.0-53.0) % MCV 90 (80-100) fL MCH 29 (26-34) pg MCHC 33 (32-36) gm/dL RDW Coeff of Aga 13.3 (11.5-15.5) % Plt Count 288 (140-440) K/uL Neut % (Auto) 70.0 (42.0-72.0) % Lymph % (Auto) 16.6 L (20-44) % Bremer % (Auto) 10.1 (0.0-11.0) % Eos % (Auto) 2.1 (0.0-7.0) % Baso % (Auto) 0.7 (0.0-3.0) % Neut # (Auto) 5.21 (1.7-7.0) K/uL Lymph # (Auto) 1.20 (0.90-2.90) K/uL Bremer # (Auto) 0.80 (0.00-0.90) K/UL Eos # (Auto) 0.16 (0.00-0.50) K/uL Baso # (Auto) 0.05 (0.00-0.30) K/uL Abs Immat Gran (auto) 0.04 (0.00-0.30) K/uL Sodium 136 (135-149) mmol/L Potassium 4.0 (3.6-5.1) mmol/L Chloride 102 (96-114) mmol/L Carbon Dioxide 24 (20-32) mmol/L BUN 21 (7-30) mg/dL Creatinine 0.8 (0.5-1.5) mg/dL Estimated Creat Clear 101.88 Estimated GFR 103 ml/min Glucose 100 (60-115) mg/dL Lactate 1.3 (0.5-1.9) mmol/L Calcium 8.5 (8.4-10.6) mg/dL Troponin I < 0.01 L (0.01-0.04) ng/mL C-Reactive Protein 5.4 H (0.5-1.0) mg/dL NT-Pro-B Natriuret Pep 34 (0-125) PG/mL SARS-CoV-2 (PCR) (Negative) 07/13/22 Range/Units 08:50 WBC (4.50-11.00) K/uL RBC (4.30-5.90) m/uL Hgb (13.5-17.5) gm/dL Hct (37.0-53.0) % MCV (80-100) fL MCH (26-34) pg MCHC (32-36) gm/dL RDW Coeff of Aga (11.5-15.5) % Plt Count (140-440) K/uL Neut % (Auto) (42.0-72.0) % Lymph % (Auto) (20-44) % Bremer % (Auto) (0.0-11.0) % Eos % (Auto) (0.0-7.0) % Baso % (Auto) (0.0-3.0) % Neut # (Auto) (1.7-7.0) K/uL Lymph # (Auto) (0.90-2.90) K/uL Bremer # (Auto) (0.00-0.90) K/UL Eos # (Auto) (0.00-0.50) K/uL Baso # (Auto) (0.00-0.30) K/uL Abs Immat Gran (auto) (0.00-0.30) K/uL Sodium (135-149) mmol/L Potassium (3.6-5.1) mmol/L Chloride (96-114) mmol/L Carbon Dioxide (20-32) mmol/L BUN (7-30) mg/dL Creatinine (0.5-1.5) mg/dL Estimated Creat Clear Estimated GFR ml/min Glucose (60-115) mg/dL Lactate (0.5-1.9) mmol/L Calcium (8.4-10.6) mg/dL Troponin I (0.01-0.04) ng/mL C-Reactive Protein (0.5-1.0) mg/dL NT-Pro-B Natriuret Pep (0-125) PG/mL SARS-CoV-2 (PCR) Negative SARS-CoV-2 (Negative) Discharge Plan Discharge Clinical Impression: Acute neck pain, Left-sided chest pain Patient Disposition: Home w/ Parent or Adult Condition: Improved Additional Instructions: Rest, light activity, ice to the neck as needed, Toradol and Medrol as prescribed, recheck with primary care in the next 48 hours, certainly sooner problems concerns can return to the ED. off work x3 days Activity Level: Light activity Discharge Diet: Regular Prescriptions: New methylprednisolone [Medrol (Thomas)] 4 mg tablets,dose pack See Rx Instructions .ROUTE .COMPLEX Qty: 21 0RF Rx Instructions: orally per package directions ketorolac 10 mg tablet 10 mg PO Q8H Qty: 15 0RF No Action zolpidem [Ambien] 10 mg tablet 10 mg PO ONCE Qty: 10 0RF ondansetron 4 mg tablet,disintegrating 4 mg PO Q6H PRN (Reason: nausea and vomiting) Qty: 20 0RF albuterol sulfate 90 mcg/actuation HFA aerosol inhaler 1 inh inhalation QID PRN (Reason: shortness of breath or wheezing) Qty: 8.5 0RF Spiriva Respimat 2.5 mcg/actuation mist 2 inh INHALATION Q24H Label Comments: INHALE 2 PUFFS BY MOUTH EVERY DAY AT THE SAME TIME EACH DAY. atorvastatin 20 mg tablet 20 mg PO HS bupropion HCl 200 mg tablet sustained-release 12 hr 200 mg PO BID Qty: 180 3RF nicotine 21 mg/24 hr patch 24 hour 1 patch transdermal Q24H Qty: 14 2RF Follow Up/Referrals: Ananda Richardson MD [Primary Care Provider] - Stand Alone Forms: [employer] Info Instructions
[2022-07-13] MEDS: 0.9 % SODIUM CHLORIDE 1000 ml 1,000 ML 6000 ML IV (08:42)
[2022-07-13] MEDS: LORazepam 2 MG/ML inj 1 MG IVP (08:42)
[2022-07-13] MEDS: MORPHINE 4 MG/ML INJ 2 MG IVP (08:44)
[2022-07-13] MEDS: KETOROLAC 30 MG/ML inj IVP (08:44)
[2022-07-13] MEDS: METHYLPREDNISOLONE SOD SUCC 62.5 MG/ML (125) 125 MG IVP (08:44)
[2022-07-13 10:13] LABS: Lactate* 1.3 mmol/L (0.5-1.9)
[2022-07-13 10:14] LABS: Basophils Absolute Auto 0.05 K/uL (0.00-0.30); Basophils Percent Auto 0.7 % (0.0-3.0); Eosinophils Absolute Auto 0.16 K/uL (0.00-0.50); Eosinophils Percent Auto 2.1 % (0.0-7.0); Immature Granulocytes Abs Auto 0.04 K/uL (0.00-0.30); Lymphocytes Percent Auto 16.6 % (20-44); Mean Corpuscular HGB Conc 33 gm/dL (32-36); Mean Corpuscular Hemoglobin 29 pg (26-34); Mean Corpuscular Volume 90 fL (80-100); Monocytes Percent Auto 10.1 % (0.0-11.0); Neutrophils Absolute Auto 5.21 K/uL (1.7-7.0); Platelet Count* 288 K/uL (140-440); RDW Coefficient of Variation % 13.3 % (11.5-15.5); Red Blood Count 4.47 m/uL (4.30-5.90); White Blood Count* 7.45 K/uL (4.50-11.00)
[2022-07-13 10:15] VITALS: BP 110/74; PULSE 85; RESP 15; O2SAT 97
[2022-07-13 10:17] LABS: Slide Review Reflex No
[2022-07-13 10:30] VITALS: BP 118/79; PULSE 79; RESP 18; O2SAT 98
[2022-07-13 10:33] LABS: Chloride* 102 mmol/L (96-114); Sodium* 136 mmol/L (135-149)
[2022-07-13 10:35] LABS: Creatinine* 0.8 mg/dL (0.5-1.5); Est. Creatinine Clearance* 101.88; Estimated Glomerular Filt Rate 103 ml/min
[2022-07-13 10:36] LABS: Blood Urea Nitrogen* 21 mg/dL (7-30); Carbon Dioxide* 24 mmol/L (20-32)
[2022-07-13 10:37] LABS: Calcium* 8.5 mg/dL (8.4-10.6); Glucose* 100 mg/dL (60-115)
[2022-07-13 10:39] LABS: C Reactive Protein* 5.4 mg/dL (0.5-1.0)
[2022-07-13 10:45] LABS: NT Pro B Type NatriureticPept* 34 PG/mL (0-125)
[2022-07-13 10:50] LABS: Troponin I* < 0.01 ng/mL (0.01-0.04)
[2022-07-13 10:57] LABS: SARS PCR* Negative SARS-CoV-2 (Negative)
[2022-07-13 11:00] VITALS: BP 113/76; PULSE 83; RESP 14; O2SAT 96
[2022-07-13 11:30] VITALS: BP 112/75; PULSE 81; RESP 14; O2SAT 96
--- NOTE | 2022-07-13 12:52 | ED.NURSE ---
Pt's family member called to ask for a different pharmacy to have the rx sent to, [facility] in [place] and [place] closed today. Attempted to call [facility] [place], they close at 1pm so not an option either. Family updated and decided to go to [facility], no further action needed at this time.
== END 2022-07-13 11:49 | disposition home or self-care (01) ==
PROVIDERS: Emergency Provider Family Medicine; PCP Family Medicine
DX: M54.2 Cervicalgia (principal); R07.9 Chest pain, unspecified; J44.9 Chronic obstructive pulmonary disease, unspecified
CPT/HCPCS: 36415; 71260; 72125; 80048; 83605; 83880; 84484; 85025; 86140; 87635; 93005; 96361; 96374; 96375; 99284; J1885; J2060; J2270; J2930; J7030; Q9967

== ENCOUNTER 2022-07-14 17:37 | Emergency (ER) | payer MEDICAID, SELFPAY ==
[2022-07-14 17:47] VITALS: BP 117/77; PULSE 81; TEMP 36.9; O2SAT 99; BMI 25.1
[2022-07-14 17:54] VITALS: BP 117/77; PULSE 81; RESP 16; TEMP 36.9; O2SAT 99
--- NOTE | 2022-07-14 18:25 | CRLHL7_ITS ---
For Patients: As a result of the Century Cures Act, medical imaging exams and procedure reports are released immediately into your electronic medical record. You may view this report before your referring provider. If you have questions, please contact your health care provider. INDICATION: Ankle swelling. TECHNIQUE: Ultrasound venous duplex lower left extremity. Compression venous exam was performed using vela-scale, color Doppler, and spectral Doppler analysis. COMPARISON: None. FINDINGS: Deep veins: Sonographic imaging demonstrates the left common femoral, deep femoral, superficial femoral, popliteal, posterior tibial and the contralateral right common femoral veins to be fully compressible with normal color Doppler blood flow. Superficial veins: An occluded thrombosed superficial vein is in the mid calf. No popliteal cyst. IMPRESSION: Thrombosis of a superficial mid calf vein is demonstrated. Remainder of the exam is unremarkable. No sign of DVT. Dictated by Raji Crook MD @ 07/14/2022 7:56:51 PM (Electronically Signed)
--- NOTE | 2022-07-14 18:26 | ED_ITS ---
HPI - General Adult General Chief complaint: Edema Stated complaint: Lt swollen ankle Time Seen by Provider: 07/14/22 17:47 History of Present Illness HPI narrative: This 57-year-old male comes in reporting swelling from edema in his left ankle. He noticed this today. Yesterday his ankles were normal. He does not report any injury event or overuse activity. He does not report any pain also in his left ankle. He has had some pain in his left knee. He was seen yesterday because of some left-sided chest wall pain. A CT scan with IV contrast of the chest was done to rule out pulmonary embolism. He does have a resolving pneumonia on that left side which could explain his discomfort there. Lab results otherwise were reassuring. There was no sign of thrombosis. The patient has no other symptoms today other than persistent chest discomfort as described and attended to yesterday and this swelling of his ankle which is painless for him. He has normal range of motion and is ambulating normally. He does not have any calf swelling or tenderness on the left leg. Related Data Home Medications Medication Instructions Recorded Confirmed atorvastatin 20 mg tablet 20 mg PO HS 06/17/22 07/02/22 tiotropium bromide 2.5 2 inh inhalation Q24H 07/13/22 07/13/22 mcg/actuation mist for inhalation (Spiriva Respimat) Previous Rx's Medication Instructions Recorded bupropion HCl 200 mg tablet,12 hr 200 mg PO BID #180 tabs 06/17/22 sustained-release ondansetron 4 mg disintegrating 4 mg PO Q6H PRN nausea and 06/27/22 tablet vomiting #20 tabs albuterol sulfate 90 mcg/actuation 1 inh inhalation QID PRN shortness 06/29/22 aerosol inhaler of breath or wheezing #8.5 grams nicotine 21 mg/24 hr daily 1 patch transdermal Q24H #14 ea 07/01/22 transdermal patch zolpidem 10 mg tablet (Ambien) 10 mg PO ONCE #10 tabs 07/02/22 ketorolac 10 mg tablet 10 mg PO Q8H #15 tabs 07/13/22 methylprednisolone 4 mg tablets in See Rx Instructions PO .COMPLEX 07/13/22 a dose pack (Medrol (Thomas)) #21 ea Allergies Allergy/AdvReac Type Severity Reaction Status Date / Time hydrocodone Allergy Unknown Heartburn Verified 07/08/22 11:21 oxycodone Allergy Unknown mood Verified 07/08/22 11:21 Review of Systems Status of ROS: Reports: 10 or more systems reviewed and unremarkable except as noted in History and below Narrative: Constitutional: No fevers, no weight gain or loss. Eyes: No discharge. No vision changes. HENT: No congestion, no sore throat, no ear pain. Cardiovascular: No palpitations. Respiratory: No shortness of breath, no wheezes, no cough. Left-sided chest wall pain as described above. Gastrointestinal: No abdominal pain, no vomiting, no diarrhea. Genitourinary: No dysuria, no hematuria. Musculoskeletal: Normal range of motion. Edema in the left ankle region. Skin: No rashes, no pruritis. Neurological: No dizziness, weakness, sensory change, speech change. Endo/Heme/Allergies: No bruising or bleeding. No polydipsia. Pysch: no suicidality, no anxiety, no insomnia. All other systems reviewed and are negative. PFSH PFS Medical History COPD exacerbation Hyponatremia Surgical History H/O hernia repair History of appendectomy Status post lumbar spinal fusion Family History Father No problems noted. 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 HEENT: Normocephalic, atraumatic. Neck: Normal range of motion. Nontender. Supple. Heart: Regular. No murmurs. Normal rate. Intact distal pulses. Lungs: Clear to auscultation. No chest discomfort. No wheezes, rhonchi, or rales. Abdomen: Normal bowel sounds. Nontender. No rebound tenderness. Genitalia: Deferred. Back: No midline tenderness. Normal range of motion. Extremities: Normal range of motion. No injury. Left ankle only has edema. There is no erythema or increased warmth. No tenderness when palpating into the calf of the left leg. No joint effusion from the left knee identified. Skin: Intact. No rash. Warm. No erythema or pallor. Neurologic: No altered sensation. No weakness. Alert and oriented. Psychiatric: No suicidality. No anxiety or depression. No insomnia. Nursing notes and vitals signs are reviewed. Const: Vital Signs, click to edit/add: Vital Signs - 24 hr 07/14/22 17:47 07/14/22 17:54 Temperature 98.4 F 98.4 F Pulse Rate [Pulse Oximeter] 81 81 Respiratory Rate 16 Blood Pressure [Le ft Upper Arm] 117/77 117/77 Pulse Oximetry 99 99 Oxygen Delivery Me thod Room Air Room Air Course Vital Signs Vital signs: Initial Vital Signs Temperature 98.4 F 07/14/22 17:47 Temperature Source Temporal Artery Scan 07/14/22 17:47 Pulse Rate 81 07/14/22 17:47 Blood Pressure 117/77 07/14/22 17:47 Blood Pressure Mean 90 07/14/22 17:47 Blood Pressure Position Sitting 07/14/22 17:47 Pulse Oximetry 99 07/14/22 17:47 Oxygen Delivery Method 07/14/22 17:47 Vital Signs Temperature 98.4 F 07/14/22 17:47 Pulse Rate 81 07/14/22 17:47 Blood Pressure 117/77 07/14/22 17:47 Pulse Oximetry 99 07/14/22 17:47 Oxygen Delivery Method 07/14/22 17:47 Temperature 98.4 F 07/14/22 17:54 Pulse Rate 81 07/14/22 17:54 Respiratory Rate 16 07/14/22 17:54 Blood Pressure 117/77 07/14/22 17:54 Pulse Oximetry 99 07/14/22 17:54 Oxygen Delivery Method 07/14/22 17:54 Medical Decision Making MDM Narrative Medical decision making narrative: This patient comes in with swelling in his left ankle as described above. There is no erythema or warmth or other findings to suggest gout or infection. He is not reporting any pain in his ankle and did not have any injury event. He does state that he is been on his knees and using a ladder recently and has had some left knee pain. It could be that he has some joint effusion that is draining down toward his ankle. An ultrasound of the left lower extremity was done here which shows no sign of thrombosis. Couple Ng this with the rather thorough workup that he had done yesterday he does not appear to be in any kind of circumstances that is worrisome. He did receive an Wilson wrap and is encouraged to keep this leg elevated when sitting. I did also encourage him to follow up with orthopedic clinic if symptoms are persistent or worsening. Imaging Data US L Lower Extremity: My impression: No sign of thrombosis. Discharge Plan Discharge Clinical Impression: Edema of left ankle Condition: Stable Instructions: Swollen Ankle Joint (ED) Additional Instructions: Keep leg elevated when sitting. Use Wilson wrap also for compression. Follow-up with orthopedic clinic if symptoms are persistent or worsening. Prescriptions: No Action zolpidem [Ambien] 10 mg tablet 10 mg PO ONCE Qty: 10 0RF ondansetron 4 mg tablet,disintegrating 4 mg PO Q6H PRN (Reason: nausea and vomiting) Qty: 20 0RF albuterol sulfate 90 mcg/actuation HFA aerosol inhaler 1 inh inhalation QID PRN (Reason: shortness of breath or wheezing) Qty: 8.5 0RF Spiriva Respimat 2.5 mcg/actuation mist 2 inh INHALATION Q24H Label Comments: INHALE 2 PUFFS BY MOUTH EVERY DAY AT THE SAME TIME EACH DAY. methylprednisolone [Medrol (Thomas)] 4 mg tablets,dose pack See Rx Instructions .ROUTE .COMPLEX Qty: 21 0RF Rx Instructions: orally per package directions ketorolac 10 mg tablet 10 mg PO Q8H Qty: 15 0RF atorvastatin 20 mg tablet 20 mg PO HS bupropion HCl 200 mg tablet sustained-release 12 hr 200 mg PO BID Qty: 180 3RF nicotine 21 mg/24 hr patch 24 hour 1 patch transdermal Q24H Qty: 14 2RF Follow Up/Referrals: Ananda Richardson MD [Primary Care Provider] - Stand Alone Forms: [email or web address] Info Instructions
== END 2022-07-14 19:13 | disposition home or self-care (01) ==
PROVIDERS: Emergency Provider Emergency Medicine Emergency Medical Services; PCP Family Medicine
DX: R60.9 Edema, unspecified (principal)
CPT/HCPCS: 93971; 99283; 99284

== ENCOUNTER 2022-10-24 12:37 | Emergency (ER) | payer MEDICAID, SELFPAY ==
[2022-10-24 12:41] VITALS: BP 133/85; PULSE 73; RESP 20; TEMP 36.6; O2SAT 95; BMI 28.9
--- NOTE | 2022-10-24 12:52 | ED_ITS ---
HPI - General Adult General Time Seen by Provider: 12:52 Date Seen: 10/24/22 Chief complaint: Abdominal Pain Stated complaint: Abdominal pain Time Seen by Provider: 10/24/22 12:44 Source: patient, RN notes reviewed and old records reviewed Mode of arrival: ambulatory Limitations: no limitations History of Present Illness HPI narrative: Patient is a 57-year-old male coming in with increasing left lower quadrant pain. He was seen in the clinic this past week and had a normal basic metabolic panel and white blood count. He is experiencing increase left lower quadrant pain and does not think he can await his scheduled CT scan for Wednesday. He has known bilateral inguinal hernias but the pain is more in the abdomen. Eating makes it worse, does feel nauseated. He has a sense it feels like some things expanding in his abdomen, making it more difficult to breathe. He has had no fevers. No vomiting, no change in bowel habits. He has noticed no blood in his bowel movements. He had a normal bowel movement just about 45 minutes prior to arrival. No urinary changes. He has not taken any Tylenol or ibuprofen, has not tried any medicines for this. Declines any pain management here. He has had his appendix out. He has had colonoscopy before. Related Data Home Medications Medication Instructions Recorded Confirmed tiotropium bromide 2.5 2 inh inhalation Q24H 07/13/22 07/13/22 mcg/actuation mist for inhalation (Spiriva Respimat) Previous Rx's Medication Instructions Recorded bupropion HCl 200 mg tablet,12 hr 200 mg PO BID #180 tabs 06/17/22 sustained-release ondansetron 4 mg disintegrating 4 mg PO Q6H PRN nausea and 06/27/22 tablet vomiting #20 tabs albuterol sulfate 90 mcg/actuation 1 inh inhalation QID PRN shortness 06/29/22 aerosol inhaler of breath or wheezing #8.5 grams nicotine 21 mg/24 hr daily 1 patch transdermal Q24H #14 ea 07/01/22 transdermal patch zolpidem 10 mg tablet (Ambien) 10 mg PO ONCE #10 tabs 07/02/22 ketorolac 10 mg tablet 10 mg PO Q8H #15 tabs 07/13/22 methylprednisolone 4 mg tablets in See Rx Instructions PO .COMPLEX 07/13/22 a dose pack (Medrol (Thomas)) #21 ea tamsulosin 0.4 mg capsule 0.4 mg PO QDAY #30 caps 08/21/22 atorvastatin 20 mg tablet See Rx Instructions .Route 09/22/22 .COMPLEX #90 tabs Allergies Allergy/AdvReac Type Severity Reaction Status Date / Time hydrocodone Allergy Unknown Heartburn Verified 10/24/22 12:41 oxycodone Allergy Unknown mood Verified 10/24/22 12:41 Review of Systems Status of ROS: Reports: 10 or more systems reviewed and unremarkable except as noted in History and below [facility] Medical History COPD exacerbation Hyponatremia Surgical History H/O hernia repair History of appendectomy Status post lumbar spinal fusion Family History Father No problems noted. 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 Smoking Status: Former smoker What tobacco products do you use: cigarettes Smoking quit date/years: <= 15 years ago Do you use any of these nicotine containing products: None Second hand tobacco smoke exposure: No How often do you have a drink containing alcohol: never How often do you have six or more drinks on one occasion: Never AUDIT-C Alcohol total score: 0 Non-prescribed substance use: denies use service: No Exam Const: Vital Signs, click to edit/add: Vital Signs - 24 hr 10/24/22 12:41 10/24/22 14:05 Temperature 97.8 F 96.8 F L Pulse Rate [Pulse Oximeter] 73 66 Respiratory Rate 20 18 Blood Pressure [Le ft Upper Arm] 133/85 117/83 Pulse Oximetry 95 95 Oxygen Delivery Me thod Room Air Room Air Documenting provider has reviewed patient's vital signs: yes Common normals: no apparent distress, average body habitus, oriented x3, no limitations, healthy appearing, alert and well nourished General appearance: cooperative, comfortable, well kempt and well developed HENMT: Common normals: normocephalic, head/scalp atraumatic, hearing grossly normal bilaterally, external nose normal, nasal mucous membranes and turbinates normal, moist oral mucous membranes and oropharynx normal Head and scalp: normocephalic and atraumatic Nose: external nose normal and nasal mucous membranes and turbinates normal Eye: Common normals: PERRL, EOMs intact bilaterally, conjunctivae normal and no scleral icterus Conjunctiva: conjunctiva(e) normal Pupil: PERRL Neck & C-Spine: Common normals: full ROM, no lymphadenopathy, supple, no meningeal signs, no JVD and thyroid normal Thyroid: thyroid normal Resp: Common normals: normal respiratory effort, no retractions, no use of accessory muscles and clear to auscultation bilaterally Auscultation: clear to auscultation bilaterally Cardio: Common normals: no JVD, regular rate, regular rhythm, S1 normal heart sound, S2 normal heart sound, no gallops, no clicks and no murmurs Rate: re gular rate Rhythm: regular rhythm Heart sounds: S1 normal and S2 normal GI: Common normals: Normal to inspection, nondistended, normoactive bowel sounds present, soft to palpation, no hepatosplenomegaly and no masses Palpation: soft and no hepatosplenomegaly Other: Has definite left lower quadrant tenderness, maybe mild rebound symptoms, no true guarding as I palpate but does seem to have pain when I let up. No evidence of any strangulated inguinal hernias. Do not feel any inguinal masses at this time. No significant tenderness. Extremity: Common normals: no calf tenderness and no pedal edema Neuro: Common normals: oriented x3, CN's II-XII intact bilaterally, moves all extremities, no focal motor deficits, no sensory deficits noted and gait normal Sensorium/orientation: alert Meningeal signs: no meningeal signs Speech: speech normal Psych: Appearance: well kempt Course Course Hospital Course: Patient currently declines pain management, advised him to let us know if he changes mine. Will place an IV, recheck baseline labs in at a few further labs on. He will be getting CT abdomen pelvis with IV contrast. Diverticulitis seems like a likely diagnosis here. Will rule out other acute intra-abdominal pathology between the labs and the CT scan. Reevaluation(s) Reevaluation #1: Reviewed with patient that his laboratory evaluation as well as his CT are not showing any concerning pathology. He has a stable paraumbilical fat containing hernia as well as a left inguinal stable fat containing hernia. He wanted to know if there were any tumors that were possible. He states he is worried because he smoked, quit in July. I reviewed with him that we certainly do not see any gross tumors. We do not visualize the inside of the colon with these types of scans and small polyps would not be detected. He states he is up-to-date on his colonoscopy. He does not feel like there is worsening of this lower abdominal pain with sitting or pressure on the abdomen, does not sound like there is any nerve impingement on questioning. He does not wear a belt. It could be that he is becoming more symptomatic with this inguinal hernia I even if it is just fat containing. He could see our general surgeon for further evaluation and 2nd opinion. Time: 15:10 Vital Signs Vital signs: Initial Vital Signs Temperature 97.8 F 10/24/22 12:41 Temperature Source Temporal Artery Scan 10/24/22 12:41 Pulse Rate 73 10/24/22 12:41 Pulse Rhythm 10/24/22 12:41 Respiratory Rate 20 10/24/22 12:41 Blood Pressure 133/85 10/24/22 12:41 Blood Pressure Mean 101 10/24/22 12:41 Blood Pressure Position Supine 10/24/22 12:41 Pulse Oximetry 95 10/24/22 12:41 Oxygen Delivery Method 10/24/22 12:41 Vital Signs Temperature 97.8 F 10/24/22 12:41 Pulse Rate 73 10/24/22 12:41 Respiratory Rate 20 10/24/22 12:41 Blood Pressure 133/85 10/24/22 12:41 Pulse Oximetry 95 10/24/22 12:41 Oxygen Delivery Method 10/24/22 12:41 Temperature 96.8 F L 10/24/22 14:05 Pulse Rate 66 10/24/22 14:05 Respiratory Rate 18 10/24/22 14:05 Blood Pressure 117/83 10/24/22 14:05 Pulse Oximetry 95 10/24/22 14:05 Oxygen Delivery Method 10/24/22 14:05 Medical Decision Making Lab Data Lab results reviewed: Yes I reviewed the patient's lab results Labs: Lab Results 10/24/22 10/24/22 10/24/22 Range/Units 13:09 13:09 13:09 WBC 6.53 (4.50-11.00) K/uL RBC 4.89 (4.30-5.90) m/uL Hgb 14.2 (13.5-17.5) gm/dL Hct 42.2 (37.0-53.0) % MCV 86 (80-100) fL MCH 29 (26-34) pg MCHC 34 (32-36) gm/dL RDW Coeff of Aga 13.0 (11.5-15.5) % Plt Count 191 (140-440) K/uL Neut % (Auto) 56.1 (42.0-72.0) % Lymph % (Auto) 30.2 (20-44) % [place] % (Auto) 10.1 (0.0-11.0) % Eos % (Auto) 3.1 (0.0-7.0) % Baso % (Auto) 0.5 (0.0-3.0) % Neut # (Auto) 3.67 (1.7-7.0) K/uL Lymph # (Auto) 1.97 (0.90-2.90) K/uL [place] # (Auto) 0.70 (0.00-0.90) K/UL Eos # (Auto) 0.20 (0.00-0.50) K/uL Baso # (Auto) 0.03 (0.00-0.30) K/uL Sodium 139 (135-149) mmol/L Potassium 3.9 (3.6-5.1) mmol/L Chloride 108 (96-114) mmol/L Carbon Dioxide 23 (20-32) mmol/L BUN 20 (7-30) mg/dL Creatinine 0.8 (0.5-1.5) mg/dL Estimated Creat Clear 98.56 Estimated GFR 103 ml/min Glucose 89 (60-115) mg/dL Lactate 0.6 (0.5-1.9) mmol/L Calcium 9.3 (8.4-10.6) mg/dL C-Reactive Protein < 0.5 L (0.5-1.0) mg/dL Imaging Data CT scan - abdomen: Attestation: I have reviewed the pertinent imaging results. Radiologist's impression: Patient: DIMA SHEPHERD Facility:?[facility] Patient ID:?[id number] Site Patient ID:?[id number]. Site :?[id number] Study:?CT Abdomen/Pelvis W ISOVUE 370-10/24/2022 1:41:03 PM Ordering Physician:Issa Lubin Final Report: Indication: Left lower quadrant pain Technique: Contrast CT abdomen and pelvis Comparison: No comparison Findings: Heart size is normal. Right basilar atelectasis spleen liver gallbladder pancreas adrenal GL basilar atelectasis. Ands are unremarkable. Kidneys unremarkable. Urinary bladder unremarkable prostate gland unremarkable minimal diverticulosis. Small fat containing left inguinal hernia. No suspicious bony lesions. Small fat containing periumbilical hernia Impression: 1. No acute findings in the abdomen or pelvis. Diverticulosis no findings for diverticulitis. Please note that all CT scans at this facility use dose modulation, iterative reconstruction, and/or weight-based dosing when appropriate to reduce radiation dose to as low as reasonably achievable. Dictated by Adenike Tran MD @ 10/24/2022 2:18:13 PM (Electronic Signature) Critical Care Time Critical Care Time Critical Care Time: No Discharge Plan Discharge Clinical Impression: Abdominal pain, left lower quadrant, Hernia, inguinal, left Patient Disposition: Home, Self-Care Condition: Stable Instructions: Inguinal Hernia (ED), Abdominal Pain (ED) Additional Instructions: Do recommend that you try some Tylenol and ibuprofen per bottle directions as needed for discomfort. Can consider seeing 1 of our general surgeons here at [facility] for further evaluation/2nd opinion. You do have a fat containing inguinal hernia but no evidence of any bowel or obstruction in this. You may still be symptomatic from the inguinal hernia. If at any point you have increasing pain, have any associated vomiting or fever with abdominal pain, do need to return to the ER for further evaluation. Activity Level: Activity as Tolerated Prescriptions: No Action zolpidem [Ambien] 10 mg tablet 10 mg PO ONCE Qty: 10 0RF ondansetron 4 mg tablet,disintegrating 4 mg PO Q6H PRN (Reason: nausea and vomiting) Qty: 20 0RF albuterol sulfate 90 mcg/actuation HFA aerosol inhaler 1 inh inhalation QID PRN (Reason: shortness of breath or wheezing) Qty: 8.5 0RF Spiriva Respimat 2.5 mcg/actuation mist 2 inh INHALATION Q24H Label Comments: INHALE 2 PUFFS BY MOUTH EVERY DAY AT THE SAME TIME EACH DAY. methylprednisolone [Medrol (Thomas)] 4 mg tablets,dose pack See Rx Instructions .ROUTE .COMPLEX Qty: 21 0RF Rx Instructions: orally per package directions ketorolac 10 mg tablet 10 mg PO Q8H Qty: 15 0RF bupropion HCl 200 mg tablet sustained-release 12 hr 200 mg PO BID Qty: 180 3RF nicotine 21 mg/24 hr patch 24 hour 1 patch transdermal Q24H Qty: 14 2RF tamsulosin 0.4 mg capsule 0.4 mg PO QDAY Qty: 30 9RF atorvastatin 20 mg tablet See Rx Instructions .ROUTE .COMPLEX Qty: 90 3RF Dose Instruction: TAKE 1 TABLET BY MOUTH AT BEDTIME Rx Instructions: TAKE 1 TABLET BY MOUTH AT BEDTIME Follow Up/Referrals: Ananda Richardson MD [Primary Care Provider] - Stand Alone [facility]
--- NOTE | 2022-10-24 13:00 | CRLHL7_ITS ---
For Patients: As a result of the Cures Act, medical imaging exams and procedure reports are released immediately into your electronic medical record. You may view this report before your referring provider. If you have questions, please contact your health care provider. Indication: Left lower quadrant pain Technique: Contrast CT abdomen and pelvis Comparison: No comparison Findings: Heart size is normal. Right basilar atelectasis spleen liver gallbladder pancreas adrenal GL basilar atelectasis. Ands are unremarkable. Kidneys unremarkable. Urinary bladder unremarkable prostate gland unremarkable minimal diverticulosis. Small fat containing left inguinal hernia. No suspicious bony lesions. Small fat containing periumbilical hernia Impression: 1. No acute findings in the abdomen or pelvis. Diverticulosis no findings for diverticulitis. Please note that all CT scans at this facility use dose modulation, iterative reconstruction, and/or weight-based dosing when appropriate to reduce radiation dose to as low as reasonably achievable. Dictated by Adenike Tran MD @ 10/24/2022 2:18:13 PM (Electronically Signed)
[2022-10-24 13:15] LABS: Lactate* 0.6 mmol/L (0.5-1.9)
[2022-10-24 13:16] LABS: Basophils Absolute Auto 0.03 K/uL (0.00-0.30); Basophils Percent Auto 0.5 % (0.0-3.0); Eosinophils Percent Auto 3.1 % (0.0-7.0); Hematocrit 42.2 % (37.0-53.0); Hemoglobin* 14.2 gm/dL (13.5-17.5); Lymphocytes Absolute Auto 1.97 K/uL (0.90-2.90); Lymphocytes Percent Auto 30.2 % (20-44); Mean Corpuscular HGB Conc 34 gm/dL (32-36); Mean Corpuscular Hemoglobin 29 pg (26-34); Mean Corpuscular Volume 86 fL (80-100); Monocytes Percent Auto 10.1 % (0.0-11.0); Neutrophils Absolute Auto 3.67 K/uL (1.7-7.0); Neutrophils Percent Auto 56.1 % (42.0-72.0); Platelet Count* 191 K/uL (140-440); Red Blood Count 4.89 m/uL (4.30-5.90); White Blood Count* 6.53 K/uL (4.50-11.00)
[2022-10-24 13:20] LABS: Slide Review Reflex No
[2022-10-24 13:49] LABS: Chloride* 108 mmol/L (96-114); Potassium* 3.9 mmol/L (3.6-5.1); Sodium* 139 mmol/L (135-149)
[2022-10-24 13:52] LABS: Blood Urea Nitrogen* 20 mg/dL (7-30); Carbon Dioxide* 23 mmol/L (20-32); Creatinine* 0.8 mg/dL (0.5-1.5); Est. Creatinine Clearance* 98.56; Estimated Glomerular Filt Rate 103 ml/min
[2022-10-24 13:53] LABS: Calcium* 9.3 mg/dL (8.4-10.6); Glucose* 89 mg/dL (60-115)
[2022-10-24 13:57] LABS: C Reactive Protein* < 0.5 mg/dL (0.5-1.0)
[2022-10-24] MEDS: KETOROLAC 15 MG/ML inj IVP (14:03)
[2022-10-24 14:05] VITALS: BP 117/83; PULSE 66; RESP 18; TEMP 36; O2SAT 95
== END 2022-10-24 15:48 | disposition home or self-care (01) ==
PROVIDERS: Emergency Provider Family Medicine; PCP Family Medicine
DX: R10.32 Left lower quadrant pain (principal); K40.90 Unilateral inguinal hernia, without obstruction or gangrene, not specified as recurrent
CPT/HCPCS: 36415; 74177; 80048; 83605; 85025; 86140; 96374; 99284; J1885; Q9967

== ENCOUNTER 2022-10-27 19:34 | Emergency (ER) | payer MEDICAID, SELFPAY ==
[2022-10-27 19:42] VITALS: BP 142/79; PULSE 77; RESP 18; TEMP 36.8; O2SAT 95; BMI 28.9
--- NOTE | 2022-10-27 20:01 | CRLHL7_ITS ---
For Patients: As a result of the Cures Act, medical imaging exams and procedure reports are released immediately into your electronic medical record. You may view this report before your referring provider. If you have questions, please contact your health care provider. Indication: Injury Technique: Three views Comparison: None Findings: Bones: Alignment is normal. No fractures or bone lesions. Joint spaces: No dislocation. Dorsal osteophytes at the midfoot. Soft tissues: Unremarkable. Dictated by Mehdi Krause MD @ 10/27/2022 8:50:54 PM (Electronically Signed)
--- NOTE | 2022-10-27 21:05 | ED.LOWEXIN ---
HPI - Extremity Injury (Lower) General Chief Complaint: Extremity Pain/Injury, Lower Stated Complaint: Left Ankle Swelling - fall Time Seen by Provider: 10/27/22 19:40 History of Present Illness HPI Narrative: Pt is a 57 year old gentleman who presents with left ankle pain. Patient twisted his left ankle this morning and had only minimal pain in the left lateral ankle. Pt was able to bear weight and actually went to work today. Pt noted that the pain worsened over the course of the day. Pain is moderate. No swelling or echymosis noted. Pt has no other injuries. Pt has no pre-existing ankle issues. Related Data Home Medications Medication Instructions Recorded Confirmed tiotropium bromide 2.5 2 inh inhalation Q24H 07/13/22 07/13/22 mcg/actuation mist for inhalation (Spiriva Respimat) Previous Rx's Medication Instructions Recorded bupropion HCl 200 mg tablet,12 hr 200 mg PO BID #180 tabs 06/17/22 sustained-release ondansetron 4 mg disintegrating 4 mg PO Q6H PRN nausea and 06/27/22 tablet vomiting #20 tabs albuterol sulfate 90 mcg/actuation 1 inh inhalation QID PRN shortness 06/29/22 aerosol inhaler of breath or wheezing #8.5 grams nicotine 21 mg/24 hr daily 1 patch transdermal Q24H #14 ea 07/01/22 transdermal patch zolpidem 10 mg tablet (Ambien) 10 mg PO ONCE #10 tabs 07/02/22 ketorolac 10 mg tablet 10 mg PO Q8H #15 tabs 07/13/22 methylprednisolone 4 mg tablets in See Rx Instructions PO .COMPLEX 07/13/22 a dose pack (Medrol (Thomas)) #21 ea tamsulosin 0.4 mg capsule 0.4 mg PO QDAY #30 caps 08/21/22 atorvastatin 20 mg tablet See Rx Instructions .Route 09/22/22 .COMPLEX #90 tabs Allergies Allergy/AdvReac Type Severity Reaction Status Date / Time hydrocodone Allergy Unknown Heartburn Verified 10/24/22 12:41 oxycodone Allergy Unknown mood Verified 10/24/22 12:41 acetaminophen [From Percocet] Allergy Rash Verified 10/27/22 19:42 Review of Systems Status of ROS: Reports: 6 or more systems reviewed and unremarkable except as noted in History and below [facility] Medical History COPD exacerbation Hyponatremia Surgical History H/O hernia repair History of appendectomy Status post lumbar spinal fusion Family History Father No problems noted. 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 EYES: No scleral icterus. ENT: Tympanic membranes and oropharynx normal. THYROID: no thyroid nodules or thyromegaly. LYMPH: No supraclavicular or cervical lymphadenopathy. SKIN: Visible skin seen during exam normal or with benign process only. EXT: No dependent lower extremity pedal edema. HEART: Regular rate and rhythm with no murmurs, rubs, or gallops. LUNGS: Clear to auscultation bilaterally with no crackles or wheezes. ABD: Soft, non tender, non distended. PSYCH: Good eye contact, speech is not pressured. Musculoskeletal no pain to palpation normal alignment left ankle. No neurovascular abnormalities. Const: Vital Signs, click to edit/add: Vital Signs - 24 hr 10/27/22 19:42 Temperature 98.2 F Pulse Rate [Pulse Oximeter] 77 Respiratory Rate 18 Blood Pressure [Ri ght Upper Arm] 142/79 H Pulse Oximetry 95 Oxygen Delivery Me thod Room Air Course Course Hospital Course: Pt seen and examined. X ray of the left ankle ordered. Vital Signs Vital signs: Initial Vital Signs Temperature 98.2 F 10/27/22 19:42 Temperature Source Temporal Artery Scan 10/27/22 19:42 Pulse Rate 77 10/27/22 19:42 Respiratory Rate 18 10/27/22 19:42 Blood Pressure 142/79 H 10/27/22 19:42 Blood Pressure Mean 100 10/27/22 19:42 Blood Pressure Position Sitting 10/27/22 19:42 Pulse Oximetry 95 10/27/22 19:42 Oxygen Delivery Method 10/27/22 19:42 Vital Signs Temperature 98.2 F 10/27/22 19:42 Pulse Rate 77 10/27/22 19:42 Respiratory Rate 18 10/27/22 19:42 Blood Pressure 142/79 H 10/27/22 19:42 Pulse Oximetry 95 10/27/22 19:42 Oxygen Delivery Method 10/27/22 19:42 Temperature 98.2 F 10/27/22 19:42 Pulse Rate 77 10/27/22 19:42 Respiratory Rate 18 10/27/22 19:42 Blood Pressure 142/79 H 10/27/22 19:42 Pulse Oximetry 95 10/27/22 19:42 Oxygen Delivery Method 10/27/22 19:42 MDM - Extremity Injury (Lower) MDM Narrative Medical decision making narrative: Pt presents with l ankle injury. Normal exam. Normal x ray. This appears to be a sprain. Would treat with Rest Ice Compression Elevation, Tylenol and Motrin. Differential Diagnosis Differential diagnosis: Likely ankle sprain and strain, acute internal derangement of knee, fracture of femur, fracture of hip, fracture of toe and ankle fracture Discharge Plan Discharge Clinical Impression: Ankle sprain Patient Disposition: Home, Self-Care Condition: Stable Instructions: Ankle Sprain (ED) Additional Instructions: Rest Ice Compression Elevation Tylenol Motrin Activity Level: Activity as Tolerated Discharge Diet: Regular Prescriptions: No Action zolpidem [Ambien] 10 mg tablet 10 mg PO ONCE Qty: 10 0RF ondansetron 4 mg tablet,disintegrating 4 mg PO Q6H PRN (Reason: nausea and vomiting) Qty: 20 0RF albuterol sulfate 90 mcg/actuation HFA aerosol inhaler 1 inh inhalation QID PRN (Reason: shortness of breath or wheezing) Qty: 8.5 0RF Spiriva Respimat 2.5 mcg/actuation mist 2 inh INHALATION Q24H Label Comments: INHALE 2 PUFFS BY MOUTH EVERY DAY AT THE SAME TIME EACH DAY. methylprednisolone [Medrol (Thomas)] 4 mg tablets,dose pack See Rx Instructions .ROUTE .COMPLEX Qty: 21 0RF Rx Instructions: orally per package directions ketorolac 10 mg tablet 10 mg PO Q8H Qty: 15 0RF bupropion HCl 200 mg tablet sustained-release 12 hr 200 mg PO BID Qty: 180 3RF nicotine 21 mg/24 hr patch 24 hour 1 patch transdermal Q24H Qty: 14 2RF tamsulosin 0.4 mg capsule 0.4 mg PO QDAY Qty: 30 9RF atorvastatin 20 mg tablet See Rx Instructions .ROUTE .COMPLEX Qty: 90 3RF Dose Instruction: TAKE 1 TABLET BY MOUTH AT BEDTIME Rx Instructions: TAKE 1 TABLET BY MOUTH AT BEDTIME Follow Up/Referrals: Ananda Richardson MD [Primary Care Provider] - [facility]one [facility]
== END 2022-10-27 21:38 | disposition home or self-care (01) ==
PROVIDERS: Emergency Provider Internal Medicine; PCP Family Medicine
DX: S93.402A Sprain of unspecified ligament of left ankle, initial encounter (principal); Y93.9 Activity, unspecified; Y92.9 Unspecified place or not applicable; Y99.9 Unspecified external cause status
CPT/HCPCS: 73610; 99283

== ENCOUNTER 2022-11-14 16:34 | Emergency (ER) | payer MEDICAID, SELFPAY ==
[2022-11-14 16:48] VITALS: BP 123/81; PULSE 75; RESP 18; TEMP 36.7; O2SAT 96; BMI 28.9
--- NOTE | 2022-11-14 17:26 | ED.GENADULT ---
[facility] - General Adult General Date Seen: 11/14/22 Chief complaint: Abdominal Pain Stated complaint: stomach pain, skin tender Time Seen by Provider: 11/14/22 16:47 Source: patient History of Present Illness HPI narrative: Patient is a 57-year-old male here with his for evaluation of left-sided abdominal pain which has been ongoing since October 16. He was initially seen in clinic on I believe her , at which time labs were normal and a CT scan was ordered as an outpatient. He presented to the ER 2 days later because he did not feel he could wait for his CT scan due to ongoing pain. He had a normal workup at that time including labs and a CT scan which showed 2 small fat containing inguinal hernias, otherwise normal. He presents today because he says he still having what he rates as moderate to severe pain in his abdomen. He says it is more now in his mid to left upper abdomen. He says it is constant although sometimes it is worse. It feels better if he is laying down at an angle, it is worse when he is sitting or laying flat. It feels worse after eating but he has continued to eat normally aside from he says not having lunch at work. He is having normal bowel movements, denies diarrhea, black or bloody stools. He has had some mild nausea but has not had any vomiting. He took ibuprofen all day yesterday but says it did not help. Otherwise, he has not tried anything else for pain. Did make an appointment to follow-up with general surgery I believe on November 18, to discuss his hernia, which at this point he had felt was the cause of his pain. However, he remains very concerned about the possibility of cancer. He quit smoking in July after having a significant pneumonia, but says he had a the in or premonition regarding cancer and now remains extremely concerned about the possibility of cancer. His notes that he generally does not complain about pain and has seemed to be having a lot of pain, but she also says that he seems to have a lot of anxiety related to the idea of cancer. He did have CT scans x2 of his chest, had a consolidated pneumonia in the right posterior lung on the with improvement on the follow-up scan, though not complete resolution. He has had a colonoscopy, couple of years ago. This was done at an outside facility. He reports no significant findings. Related Data Home Medications Medication Instructions Recorded Confirmed tiotropium bromide 2.5 2 inh inhalation Q24H 07/13/22 07/13/22 mcg/actuation mist for inhalation (Spiriva Respimat) Previous Rx's Medication Instructions Recorded bupropion HCl 200 mg tablet,12 hr 200 mg PO BID #180 tabs 06/17/22 sustained-release ondansetron 4 mg disintegrating 4 mg PO Q6H PRN nausea and 06/27/22 tablet vomiting #20 tabs albuterol sulfate 90 mcg/actuation 1 inh inhalation QID PRN shortness 06/29/22 aerosol inhaler of breath or wheezing #8.5 grams nicotine 21 mg/24 hr daily 1 patch transdermal Q24H #14 ea 07/01/22 transdermal patch zolpidem 10 mg tablet (Ambien) 10 mg PO ONCE #10 tabs 07/02/22 ketorolac 10 mg tablet 10 mg PO Q8H #15 tabs 07/13/22 methylprednisolone 4 mg tablets in See Rx Instructions PO .COMPLEX 07/13/22 a dose pack (Medrol (Thomas)) #21 ea tamsulosin 0.4 mg capsule 0.4 mg PO QDAY #30 caps 08/21/22 atorvastatin 20 mg tablet See Rx Instructions .Route 09/22/22 .COMPLEX #90 tabs Allergies Allergy/AdvReac Type Severity Reaction Status Date / Time hydrocodone Allergy Unknown Heartburn Verified 10/24/22 12:41 oxycodone Allergy Unknown mood Verified 10/24/22 12:41 acetaminophen [From Percocet] Allergy Rash Verified 10/27/22 19:42 Review of Systems Status of ROS: Reports: 10 or more systems reviewed and unremarkable except as noted in History and below [facility] Medical History COPD exacerbation Hyponatremia Surgical History H/O hernia repair History of appendectomy Status post lumbar spinal fusion Family History Father No problems noted. 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 In general, an alert, nontoxic male. He looks comfortable. Breathing easily. Head: Normocephalic, atraumatic. Eyes: Pupils are equal reactive. Extraocular movements are full. Conjunctivae are normal. ENT: Mucous membranes are moist. Throat is normal. Neck: Supple without lymphadenopathy. Heart: Regular rate and rhythm. No murmur or rub. Lungs: Clear bilaterally. No increased work of breathing, crackles or wheezes. No CVA tenderness. Abdomen: Abdomen is nondistended, normal in appearance. No rashes. He notes tenderness with light touch to the skin. He does not have any rebound or guarding. He has tenderness primarily in the left upper quadrant. The remainder of the abdomen is nontender to palpation. Bowel sounds are present. Extremities: Well perfused. No edema. No calf tenderness. Pulses intact. Neurologic: Patient is alert and oriented to person and place. Speech is fluent. Face is symmetric. Moves all extremities equally. Affect: Normal. Skin: Warm and dry. Well perfused. Const: Vital Signs, click to edit/add: Vital Signs - 24 hr 11/14/22 16:48 Temperature 98.1 F Pulse Rate [Right Pulse Oximeter] 75 Respiratory Rate 18 Blood Pressure [Ri ght Upper Arm] 123/81 Pulse Oximetry 96 Oxygen Delivery Me thod Room Air Documenting provider has reviewed patient's vital signs: yes Course Course Hospital Course: I had a fairly lengthy discussion with the patient and his about all of this. I have reviewed all of his records. I am going to do a chest x-ray just to document that his pneumonia has resolved. There is no sign of it on the CT scan that was done on October 22, but he did have a fairly extensive pneumonia on the right, so a chest x-ray will just allow us to make sure that the remainder of that lungs clear and that there are no suspicious nodule seen on chest x-ray. I have discussed with him that I think checking some labs here is the best place to start. If labs are all normal, I do not think CT scan is likely to give us a lot of additional information. He had an unremarkable CT scan back in summer time and then another 1 here a couple of weeks ago. His abdominal exam is benign. He has been eating relatively normally, he has not had any vomiting. I do not think this is going to represent a bowel obstruction. He has had normal bowel movements, I think the likelihood of significant colitis or diverticulitis is relatively low at this point. If labs are markedly abnormal, then CT scan may make more sense. His did ask that we give him something for pain as she does feel that he has been very uncomfortable. I initially gave him morphine as well as Zofran, the nurse said that he did not note significant improvement with the morphine and said that he typically gets better relief with Dilaudid. He did have 0.5 mg of Dilaudid and I also gave him a mg of Ativan. His laboratory evaluation reveals no abnormalities at all. His white count is normal at 6, hemoglobin is 14.4, stable compared to previous. Diff is normal. Electrolytes are normal, BUN creatinine are 21 and 0.8. Glucose is 82. Lactate is 0.5. CRP is less than 0.5. LFTs are entirely normal. Lipase is 65. A urinalysis was ordered but was not provided. I did repeat a chest x-ray just to make sure that the previous pneumonia had entirely cleared and no new nodules were seen, this is read by Radiology as negative. My review is likewise negative. I have discussed all this with him. His abdominal exam really is benign, he has some tenderness up in the left upper quadrant. I certainly think is reasonable for him to follow-up with general surgery to discuss his hernias, but I do not think that his pain can likely be attributed to his inguinal hernias. I do not think repeat CT scanning is likely to be very revealing. He remains concerned about the possibility of a cancer, bowel obstruction, something along those lines. I have discussed with him that in the absence of ongoing knee, normal bowel movements, absence of vomiting, I simply do not think this is a bowel obstruction. He had imaging which was normal, and while that certainly can not rule out all cancers, repeating it today will not enhance our ability to eliminate cancer. I would recommend that he follow-up with Dr. Rivers to further discuss his abdominal pain. Follow-up with GI may be helpful as consideration for upper or lower scope may be helpful at some point here. I would recommend that he start on omeprazole 40 mg daily, as I do not think there is a downside and gastritis/peptic ulcer disease may be playing a role here. Vital Signs Vital signs: Initial Vital Signs Temperature 98.1 F 11/14/22 16:48 Temperature Source Temporal Artery Scan 11/14/22 16:48 Pulse Rate 75 11/14/22 16:48 Pulse Rhythm 11/14/22 16:48 Respiratory Rate 18 11/14/22 16:48 Blood Pressure 123/81 11/14/22 16:48 Blood Pressure Mean 95 11/14/22 16:48 Blood Pressure Position Sitting 11/14/22 16:48 Pulse Oximetry 96 11/14/22 16:48 Oxygen Delivery Method 11/14/22 16:48 Vital Signs Temperature 98.1 F 11/14/22 16:48 Pulse Rate 75 11/14/22 16:48 Respiratory Rate 18 11/14/22 16:48 Blood Pressure 123/81 11/14/22 16:48 Pulse Oximetry 96 11/14/22 16:48 Oxygen Delivery Method 11/14/22 16:48 Temperature 98.1 F 11/14/22 16:48 Pulse Rate 75 11/14/22 16:48 Respiratory Rate 18 11/14/22 16:48 Blood Pressure 123/81 11/14/22 16:48 Pulse Oximetry 96 11/14/22 16:48 Oxygen Delivery Method 11/14/22 16:48 Medical Decision Making Lab Data Labs: Lab Results 11/14/22 11/14/22 11/14/22 Range/Units 17:45 17:45 17:45 WBC 6.15 (4.50-11.00) K/uL RBC 4.95 (4.30-5.90) m/uL Hgb 14.4 (13.5-17.5) gm/dL Hct 42.4 (37.0-53.0) % MCV 86 (80-100) fL MCH 29 (26-34) pg MCHC 34 (32-36) gm/dL RDW Coeff of Aga 12.5 (11.5-15.5) % Plt Count 191 (140-440) K/uL Neut % (Auto) 54.0 (42.0-72.0) % Lymph % (Auto) 30.7 (20-44) % [place] % (Auto) 10.2 (0.0-11.0) % Eos % (Auto) 4.4 (0.0-7.0) % Baso % (Auto) 0.5 (0.0-3.0) % Neut # (Auto) 3.32 (1.7-7.0) K/uL Lymph # (Auto) 1.89 (0.90-2.90) K/uL [place] # (Auto) 0.60 (0.00-0.90) K/UL Eos # (Auto) 0.27 (0.00-0.50) K/uL Baso # (Auto) 0.03 (0.00-0.30) K/uL Sodium 139 (135-149) mmol/L Potassium 3.9 (3.6-5.1) mmol/L Chloride 108 (96-114) mmol/L Carbon Dioxide 23 (20-32) mmol/L BUN 21 (7-30) mg/dL Creatinine 0.8 (0.5-1.5) mg/dL Estimated Creat Clear 98.56 Estimated GFR 103 ml/min Glucose 82 (60-115) mg/dL Lactate (0.5-1.9) mmol/L Calcium 9.0 (8.4-10.6) mg/dL Total Bilirubin 0.4 (0.1-1.5) mg/dL Direct Bilirubin 0.2 (0.0-0.5) mg/dL AST 25 (12-35) U/L ALT 24 (4-50) U/L Alkaline Phosphatase 71 (40-150) U/L C-Reactive Protein < 0.5 L (0.5-1.0) mg/dL Total Protein 6.8 (6.0-8.3) g/dL Albumin 4.4 (3.3-5.0) g/dL Lipase 65 (23-300) U/L 11/14/22 Range/Units 17:45 WBC (4.50-11.00) K/uL RBC (4.30-5.90) m/uL Hgb (13.5-17.5) gm/dL Hct (37.0-53.0) % MCV (80-100) fL MCH (26-34) pg MCHC (32-36) gm/dL RDW Coeff of Aga (11.5-15.5) % Plt Count (140-440) K/uL Neut % (Auto) (42.0-72.0) % Lymph % (Auto) (20-44) % [place] % (Auto) (0.0-11.0) % Eos % (Auto) (0.0-7.0) % Baso % (Auto) (0.0-3.0) % Neut # (Auto) (1.7-7.0) K/uL Lymph # (Auto) (0.90-2.90) K/uL [place] # (Auto) (0.00-0.90) K/UL Eos # (Auto) (0.00-0.50) K/uL Baso # (Auto) (0.00-0.30) K/uL Sodium (135-149) mmol/L Potassium (3.6-5.1) mmol/L Chloride (96-114) mmol/L Carbon Dioxide (20-32) mmol/L BUN (7-30) mg/dL Creatinine (0.5-1.5) mg/dL Estimated Creat Clear Estimated GFR ml/min Glucose (60-115) mg/dL Lactate 0.5 (0.5-1.9) mmol/L Calcium (8.4-10.6) mg/dL Total Bilirubin (0.1-1.5) mg/dL Direct Bilirubin (0.0-0.5) mg/dL AST (12-35) U/L ALT (4-50) U/L Alkaline Phosphatase (40-150) U/L C-Reactive Protein (0.5-1.0) mg/dL Total Protein (6.0-8.3) g/dL Albumin (3.3-5.0) g/dL Lipase (23-300) U/L Discharge Plan Discharge Clinical Impression: Abdominal pain Patient Disposition: Home, Self-Care Condition: Improved Instructions: Abdominal Pain (ED) Additional Instructions: I would recommend taking Prilosec 40 mg daily for the next two weeks. Follow up with Gen Surgery as planned to discuss management of your hernia. Follow up with Dr. Richardson for further discussion about your abdominal pain, as I doubt this is due solely to your inguinal hernias. Avoid Ibuprofen for the time being and stick with Tylenol. Prescriptions: No Action zolpidem [Ambien] 10 mg tablet 10 mg PO ONCE Qty: 10 0RF ondansetron 4 mg tablet,disintegrating 4 mg PO Q6H PRN (Reason: nausea and vomiting) Qty: 20 0RF albuterol sulfate 90 mcg/actuation HFA aerosol inhaler 1 inh inhalation QID PRN (Reason: shortness of breath or wheezing) Qty: 8.5 0RF Spiriva Respimat 2.5 mcg/actuation mist 2 inh INHALATION Q24H Label Comments: INHALE 2 PUFFS BY MOUTH EVERY DAY AT THE SAME TIME EACH DAY. methylprednisolone [Medrol (Thomas)] 4 mg tablets,dose pack See Rx Instructions .ROUTE .COMPLEX Qty: 21 0RF Rx Instructions: orally per package directions ketorolac 10 mg tablet 10 mg PO Q8H Qty: 15 0RF bupropion HCl 200 mg tablet sustained-release 12 hr 200 mg PO BID Qty: 180 3RF nicotine 21 mg/24 hr patch 24 hour 1 patch transdermal Q24H Qty: 14 2RF tamsulosin 0.4 mg capsule 0.4 mg PO QDAY Qty: 30 9RF atorvastatin 20 mg tablet See Rx Instructions .ROUTE .COMPLEX Qty: 90 3RF Dose Instruction: TAKE 1 TABLET BY MOUTH AT BEDTIME Rx Instructions: TAKE 1 TABLET BY MOUTH AT BEDTIME Follow Up/Referrals: Ananda Richardson MD [Primary Care Provider] - Stand Alone Forms: [facility] Info Instructions
--- NOTE | 2022-11-14 17:36 | CRLHL7_ITS ---
For Patients: As a result of the Century Cures Act, medical imaging exams and procedure reports are released immediately into your electronic medical record. You may view this report before your referring provider. If you have questions, please contact your health care provider. INDICATION: Document pneumonia resolution. TECHNIQUE: Chest 1 views. COMPARISON: Chest radiograph 06/28/2022. FINDINGS: Cardiovascular and mediastinum: Normal heart size. Tortuous thoracic aorta. Lungs and pleural spaces: Interval resolution of the right lower lobe airspace opacity. The lungs are clear apart from left basilar atelectasis versus scarring. No pleural effusion or pneumothorax. Bones and soft tissues: Degenerative changes of the bilateral shoulders and spine. IMPRESSION: Interval resolution of the right lower lobe airspace opacity. No evidence of an acute pulmonary process. Dictated by Jose Marie MD @ 11/14/2022 6:41:14 PM (Electronically Signed)
[2022-11-14] MEDS: MORPHINE 4 MG/ML INJ IVP (17:47)
[2022-11-14] MEDS: GI COCKTAIL (VISC LIDO/ANTACID) 30 ML PO (17:47)
[2022-11-14] MEDS: ONDANSETRON 2 MG/ML inj 4 MG IVP (17:47)
[2022-11-14 17:54] LABS: Lactate* 0.5 mmol/L (0.5-1.9)
[2022-11-14 17:56] LABS: Basophils Absolute Auto 0.03 K/uL (0.00-0.30); Basophils Percent Auto 0.5 % (0.0-3.0); Eosinophils Absolute Auto 0.27 K/uL (0.00-0.50); Eosinophils Percent Auto 4.4 % (0.0-7.0); Hematocrit 42.4 % (37.0-53.0); Hemoglobin* 14.4 gm/dL (13.5-17.5); Immature Granulocytes Abs Auto 0.01 K/uL (0.00-0.30); Immature Granulocytes Pct Auto 0.2 %; Lymphocytes Absolute Auto 1.89 K/uL (0.90-2.90); Lymphocytes Percent Auto 30.7 % (20-44); Mean Corpuscular HGB Conc 34 gm/dL (32-36); Mean Corpuscular Hemoglobin 29 pg (26-34); Mean Corpuscular Volume 86 fL (80-100); Monocytes Percent Auto 10.2 % (0.0-11.0); Neutrophils Absolute Auto 3.32 K/uL (1.7-7.0); Platelet Count* 191 K/uL (140-440); RDW Coefficient of Variation % 12.5 % (11.5-15.5); Red Blood Count 4.95 m/uL (4.30-5.90); White Blood Count* 6.15 K/uL (4.50-11.00)
[2022-11-14 17:58] LABS: Slide Review Reflex No
[2022-11-14 18:12] LABS: Chloride* 108 mmol/L (96-114); Potassium* 3.9 mmol/L (3.6-5.1); Sodium* 139 mmol/L (135-149)
[2022-11-14 18:13] LABS: Albumin* 4.4 g/dL (3.3-5.0)
[2022-11-14 18:15] LABS: Blood Urea Nitrogen* 21 mg/dL (7-30); Carbon Dioxide* 23 mmol/L (20-32); Creatinine* 0.8 mg/dL (0.5-1.5); Est. Creatinine Clearance* 98.56; Estimated Glomerular Filt Rate 103 ml/min
[2022-11-14 18:16] LABS: Alkaline Phosphatase* 71 U/L (40-150); Aspartate Amino Transferase* 25 U/L (12-35); Bilirubin Direct* 0.2 mg/dL (0.0-0.5); Bilirubin Total* 0.4 mg/dL (0.1-1.5); Glucose* 82 mg/dL (60-115); Total Protein* 6.8 g/dL (6.0-8.3)
[2022-11-14 18:17] LABS: Alanine Aminotransferase* 24 U/L (4-50); Lipase* 65 U/L (23-300)
[2022-11-14 18:19] LABS: C Reactive Protein* < 0.5 mg/dL (0.5-1.0)
[2022-11-14 19:00] VITALS: BP 119/89; PULSE 69; RESP 12; O2SAT 97
[2022-11-14] MEDS: HYDROmorphone 0.5 mg/0.5 ml inj IVP (19:10)
[2022-11-14] MEDS: LORazepam 2 MG/ML inj 1 MG IVP (19:11)
[2022-11-14] MEDS: PANTOPRAZOLE SODIUM 40 MG INJ IVP (19:11)
[2022-11-14 20:01] VITALS: BP 123/81; PULSE 75; RESP 18; TEMP 36.7
== END 2022-11-14 20:05 | disposition home or self-care (01) ==
PROVIDERS: Emergency Provider Emergency Medicine; PCP Family Medicine
DX: R10.9 Unspecified abdominal pain (principal)
CPT/HCPCS: 36415; 71045; 80048; 80076; 81001; 83605; 83690; 85025; 86140; 87338; 96374; 96375; 99284; 99285; A9270; C9113; J1170; J2060; J2270; J2405

== ENCOUNTER 2022-11-25 08:09 | Outpatient (CLI) | payer MEDICAID, SELFPAY ==
[2022-11-25 14:27] LABS: Cholesterol* 132 mg/dL (90-199); HDL Cholesterol* 36 mg/dL (>=40); LDL Cholesterol Calculated 88 mg/dL (<100); Triglycerides* 41 mg/dL (40-149)
[2022-11-25 14:56] LABS: PSA Screen* 0.15 ng/mL (0.10-4.00)
== END 2022-11-25 08:10 | disposition home or self-care (01) ==
PROVIDERS: PCP Family Medicine; Visit Provider Family Medicine
DX: E78.5 Hyperlipidemia, unspecified (principal); Z12.5 Encounter for screening for malignant neoplasm of prostate
CPT/HCPCS: 80061; 84153

== ENCOUNTER 2022-11-30 11:36 | Outpatient (CLI) | payer MEDICAID, SELFPAY ==
[2022-11-30 12:14] LABS: SARS Antigen* negative (Negative)
--- NOTE | 2022-11-30 12:20 | W.ANESCHARGE ---
Anesthesia Charges Start Date/Time Anesthesia Start Date: 11/30/22 Anesthesia Start Time: 12:36 Stop Date/Time Anesthesia Stop Date: 11/30/22 Anesthesia Stop Time: 13:38 Summary Emergency: No
--- NOTE | 2022-11-30 13:40 | W.ANESCHARGE ---
Anesthesia Charges Start Date/Time Anesthesia Start Date: 11/30/22 Anesthesia Start Time: 12:36 Stop Date/Time Anesthesia Stop Date: 11/30/22 Anesthesia Stop Time: 13:38 Summary Emergency: No
== END 2022-11-30 11:37 | disposition home or self-care (01) ==
LOC: OP CLINIC 11:37
PROVIDERS: PCP Family Medicine; Visit Provider Surgery
DX: R10.12 Left upper quadrant pain (principal); K44.9 Diaphragmatic hernia without obstruction or gangrene; K31.89 Other diseases of stomach and duodenum; R19.8 Other specified symptoms and signs involving the digestive system and abdomen; K63.5 Polyp of colon; K62.1 Rectal polyp; K62.89 Other specified diseases of anus and rectum; K57.30 Diverticulosis of large intestine without perforation or abscess without bleeding
CPT/HCPCS: 00813; 43239; 45380; 45385; 87426; 88304; 88305; J2704

== ENCOUNTER 2023-01-24 19:46 | Emergency (ER) | payer MEDICAID, SELFPAY ==
[2023-01-24] VITALS (19 sets, daily range): BP systolic 120–168; BP diastolic 81–122; PULSE 84–137; RESP 20; TEMP 37.1; O2SAT 91–97; BMI 31.3
--- OUTSIDE RECORDS SUMMARY | 2023-01-24 20:37 | XMS_ITS | Continuity of Care Document ---
:1965 Author Organization [facility] Address [address] [address] [place] [address] Phone Care Team Providers Name Role Phone Unavailable Unavailable Unavailable Allergies, Adverse Reactions, Alerts Substance Reaction Status Criticality No Known Allergies Active No Informatio n Medications Medication Instructions Dosage Effective Dates Status Comment s (start - stop) Mavyret 100 mg-40 mg take 3 tablet by oral - A ctive tablet route every day with a meal for 8 weeks bupropion HCl SR 100 take 1 tablet by oral 100 MG - A ctive mg tablet,12 hr route 2 times every sustained-release day Procedures Procedure Date Routine Serum Collection Hepatic Function Panel Offic/outpt E&m Estab Mod-hi 2 Routine Serum Collection Hepatitis B Surface Antibody Ag-immunoassay; Hep B Surface Hep B Core Antibody Adenoma(s), Other Neoplasm Detected During Screen Colonoscopy Flex; W/remov Les- Level Iv-surg Path Gross/micro Advance Directives Directive Yes / No Effective Date File Name No Information Encounters Encounter Practice Location Reason(s) Diagnoses Date Provider Provide rs Description For Visit Copied on Encounter [facility] No Information [facility] [address] [address], [place], [id number], [place] tel:[phone] [facility] No Referring [facility] hepatitis C 3-201 Information Provid er: [facility], without 9 Referral [address] hepatic coma [address]. [address], [place], [place], [id number], [place] tel:[phone] [facility] No Information Nov-2 No [facility], [address] [address], [place], [place], [id number], [place] tel:[phone] Offic/outpt [facility] Sep-2 No Referring E&m Estab [facility] Symptoms hepatitis C 0- Information Pro vider: Mod-hi 2 [facility], or without 8 Referral [address] Concerns hepatic Self. [address], (chief comaDietary [place] complaint) counseling and s, [place], surveillanceEl [id number], evated [place] blood-pressure tel: reading, w/o [phone] diagnosis of htn [facility] [place] Sessile March- Servando DO Referring [facility] colonic Loco. 3001 Provider: [facility], Endoscopy polypDiverticu 8 [facility] [address]osis [address], [place] [address], without Nick Haskins MD, [address] [place] diverticulitis [facility] [address], [place], Encounter for [place], [place], [id number], screening for [phone], [place] malignant [place]. n, [place], tel:+ neoplasm of tel: [phone]. [phone] colonBenign [address]245 tel:[phone] neoplasm of [phone] ascending colon Family History Family Member Type Diagnosis Age At Onset Mother Problem (finding) Alive and well Father Problem (finding) Father Problem (finding) malignant neoplasm of lung Immunizations Vaccine Date Status Comments Influenza, injectable, MDCK, administered Helen rce: Other Provider preservative free Flucelvax Quad 2017-2018Y Payers Payer name Insurance type Covered democrat ID Authorization(s ) No Information Social History Type Description Quantity Date Captured Comments Sex Male Smoking Status No Information Chief Complaint And Reason For Visit No Information Reason For Referral Reason For Referral No Information Plan Of Treatment Date Type Action Status Goal Tobacco cessation counseling com pleted Goal Lifestyle education regarding di et completed Referral Ordered: ordered Ultrasound Liver Appointment date/timeframe: 09/27/2018 History Of Present Illness Encounter Date Complaint History Of Present I llness GI Symptoms or Concerns This patient com es to the clinic for evaluation of chroni c hepatitis C.The patient had evaluation in ou [place] office [place] [address] Juno Elias. As t here was transition to the electronic medical r ecord, almost all those records have been lo st. There is a letter from 2003 trying to get i n contact with the patient. A liver bio psy that had changes of grade 1, stage I dam age. There was never response to the suzy er. With those lost records, the patient 's genotype is not known.The patient segal d a liver test with a primary clinic in [facility] 2017. Those included AST 39, AST 67, milena line phosphatase 79, total bilirubin 0.4 and al bumin 4.3. His platelet count is 222,000. Hi s creatinine is 0.83.The patient is not certa in how he contracted the virus. He denies any history of blood transfusion, intrana joycelyn or intravenous drug use. He has tattoos that he placed himself. He may have shared ink with another individual. He does not remember ever having a jaundice illness.The patien Functional Status Date Functional Assessment No Information Instructions Date Instruction Additional Informati on 1. Hepatitis C lab work. 2. Liver Relate d to Chronic hepatitis C without ultrasound3. Will pursue hepatitis hepat ic coma C treatment. When you receive the medication DO NOT start. Call [phone], opt 8, ext [phone] - Tes. Lifestyle education regarding diet Relat ed to Dietary counseling and surveillance Diverticulosis/Diverticulitis Related to Diverticulosis of colon without diverticulit is Colon Polyps Related to Diverticu losis of colon without diverticulit is Colon Cancer Prevention Related to Diver ticulosis of colon without diverticulit is Assessments Type Assessment Date No Information Patient Care Teams Name Effective Dates (start - stop) Status M jesus No Information
--- OUTSIDE RECORDS SUMMARY | 2023-01-24 20:37 | XMS_ITS | Continuity of Care Document ---
:1965 Author Organization [facility] Address [address] [address] [place] [address] Phone Care Team Providers Name Role Phone [...] 5-201 [facility], [address] [address], [place], [id number], [place] tel:[phone] [facility] No Referring [facility] hepatitis C 3-201 Information Provid er: [facility], without 9 Referral [address] hepatic coma [place]. [address], [place], [place], [id number], [place] tel:[phone] [facility] No Information Nov-2 No [facility], [address] [address], [place], [place], [id number], [place] tel:[phone] Offic/outpt [facility] Sep-2 No Referring E&m Estab [facility] Symptoms hepatitis C 0- Information Pro vider: Mod-hi 2 [facility], or without 8 Referral [address] Concerns hepatic Self. [address], (chief comaDietary [place] complaint) [place], [place], surveillanceEl [phone], evated [place] blood-pressure tel: reading, w/o [phone] diagnosis of htn [facility] Sessile March- Servando DO Referring [facility] colonic Loco. 3001 Provider: [facility], Endoscopy polypDiverticu 8 [facility] [address] Center losis of [address], [place] [address], without Nick Haskins MD, [address] [place] diverticulitis [facility] [address], [place], Encounter for [place], [place], [phone], screening for [phone], [place] malignant [place]. n, [place], tel:+ neoplasm of tel: [phone] colonBenign [address]1184 tel:[phone] neoplasm of [phone] ascending colon Family History Family Member Type Diagnosis Age At Onset Mother Problem (finding) Alive and well Father Problem (finding) Father Problem (finding) malignant neoplasm of lung Immunizations Vaccine Date Status Comments Influenza, injectable, MDCK, administered Helen rce: Other Provider preservative free Flucelvax Quad 2017-2018Y Payers Payer name Insurance type Covered republican ID Authorization(s ) No Information Social History [...] liver test with a primary clinic in [facility] 2017. Those included AST 39, AST 67, [...] receive the medication DO NOT start. Call [phone], opt 8, ext [phone] - Gzq. Lifestyle education regarding diet Relat ed to [...]
--- NOTE | 2023-01-24 20:46 | ED_ITS ---
HPI - Abdominal Pain General Chief Complaint: Abdominal Pain Stated Complaint: Stomach Flu Time Seen by Provider: 01/24/23 20:05 History of Present Illness HPI narrative: 57-year-old man with a history of abdominal pain status post appendectomy presenting with complaint of right lower quadrant pain. Has been seen for similar in the past I think in November for left lower quadrant pain. Has had extensive imaging. is noted to have 2 small inguinal hernias and has since last visit, been seen by surgery apparently and recommended only to have them doubt with if they seem to be bothering him. This is not thought to be the source of these flares of abdominal pain. Was recommended to a PPI after last visit And potential scoping. This began yesterday evening now around 24 hours. He describes the pain as sharp and constant. Accompanied by nausea. He has not vomited until just a little bit ago. Headache began after this. Did have the feeling of alternating hot and chilled yesterday evening though no fever has been measured. No rashes noted. Denies substance use I eat marijuana. No longer smokes. No dysuria is described. No diarrhea. No constipation. Did try ibuprofen and maybe acetaminophen for this pain with no effect. Is now complaining of severe frontal headache. Further conversation reveals that prior to the prior episode he did have ingestion of alcohol. Apparently does not do this typically. Yesterday also drank alcohol, couple of drinks, Prior to onset. He is not coughing and has no short of breath. Spouse notes that she just thought we needed to come be evaluated after hearing him moan all day. Related Data Home Medications Medication Instructions Recorded Confirmed tiotropium bromide 2.5 2 inh inhalation Q24H 07/13/22 11/25/22 mcg/actuation mist for inhalation (Spiriva Respimat) Previous Rx's Medication Instructions Recorded bupropion HCl 200 mg tablet,12 hr 200 mg PO BID #180 tabs 06/17/22 sustained-release albuterol sulfate 90 mcg/actuation 1 inh inhalation QID PRN shortness 06/29/22 aerosol inhaler of breath or wheezing #8.5 grams tamsulosin 0.4 mg capsule 0.4 mg PO QDAY #30 caps 08/21/22 atorvastatin 20 mg tablet See Rx Instructions .Route 09/22/22 .COMPLEX #90 tabs peg 3350-electrolytes 236 240 ml PO Q10M #4,000 mL 11/19/22 gram-22.74 gram-6.74 gram-5.86 gram solution (Golytely) fluticasone 250 mcg-salmeterol 50 1 inh inhalation BID #60 ea 11/25/22 mcg/dose blistr powdr for inhalation (Wixela Inhub) Allergies Allergy/AdvReac Type Severity Reaction Status Date / Time acetaminophen [From Percocet] Allergy Unknown Verified 01/24/23 22:59 oxycodone [From Percocet] Allergy Unknown Verified 01/24/23 22:59 hydrocodone Allergy Verified 01/24/23 22:59 Review of Systems Status of ROS Reports: 10 or more systems reviewed and unremarkable except as noted in History and below PFSH PFSH Medical History RLL pneumonia Surgical History History of appendectomy Status post lumbar spinal fusion Family History Father No problems noted. 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 Room has been darkened. Cranial nerves 2-12 are intact pupils are equal appropriately responsive. Appears to be breathing easily with clear lungs. Heart is in an elevated rate and rhythm. Skin feels rather warm. No peripheral edema. Moving all extremities without difficulty. Abdomen was present bowel sounds is diffusely quite tender to palpation. Groans palpating anywhere. The abdomen though is soft. No masses appreciated. Const: Vital Signs, click to edit/add: Vital Signs - 24 hr 01/24/23 19:51 01/24/23 20:19 01/24/23 20:28 Temperature 98.7 F Pulse Rate 107 H Pulse Rate [Pulse Oximeter] 127 H 107 H Respiratory Rate 20 20 Blood Pressure Blood Pressure [Ri ght Upper Arm] 120/81 139/91 H Pulse Oximetry 93 97 94 Oxygen Delivery Me thod Room Air Room Air 01/24/23 20:29 01/24/23 20:30 01/24/23 20:31 Temperature Pulse Rate 105 H 98 100 Pulse Rate [Pulse Oximeter] Respiratory Rate Blood Pressure 146/122 H 128/86 Blood Pressure [Ri ght Upper Arm] Pulse Oximetry 94 94 94 Oxygen Delivery Me thod 01/24/23 21:00 01/24/23 21:05 Temperature Pulse Rate 94 89 Pulse Rate [Pulse Oximeter] Respiratory Rate Blood Pressure 137/86 Blood Pressure [Ri ght Upper Arm] Pulse Oximetry 94 93 Oxygen Delivery Me thod Course Vital Signs Vital signs: Initial Vital Signs Temperature 98.7 F 01/24/23 19:51 Temperature Source Temporal Artery Scan 01/24/23 19:51 Pulse Rate 127 H 01/24/23 19:51 Pulse Rhythm 01/24/23 19:51 Pulse Strength 3+ Normal 01/24/23 19:51 Respiratory Rate 20 01/24/23 19:51 Blood Pressure 120/81 01/24/23 19:51 Blood Pressure Mean 94 01/24/23 19:51 Blood Pressure Position Sitting 01/24/23 19:51 Pulse Oximetry 93 01/24/23 19:51 Oxygen Delivery Method 01/24/23 19:51 Vital Signs Temperature 98.7 F 01/24/23 19:51 Pulse Rate 127 H 01/24/23 19:51 Respiratory Rate 20 01/24/23 19:51 Blood Pressure 120/81 01/24/23 19:51 Pulse Oximetry 93 01/24/23 19:51 Oxygen Delivery Method 01/24/23 19:51 Temperature 98.7 F 01/24/23 19:51 Pulse Rate 90 01/24/23 23:35 Respiratory Rate 20 01/24/23 20:19 Blood Pressure 127/81 01/24/23 22:51 Pulse Oximetry 94 01/24/23 23:35 Oxygen Delivery Method 01/24/23 20:19 MDM - Abdominal Pain MDM Narrative Medical decision making narrative: Certainly could be some infectious etiology not yet presenting as a gastroenteritis. Abdominal migraine, certainly with headache. Status post appy with diffuse pain suggests against appendicitis or something like colitis. It seems to me that has flare of generalized abdominal pain possibly in response to alcohol consumption. I do think anxiety is playing a role as well. Will be checking labs and then hydrating. Given antiemetic and ketorolac. Hyoscyamine as well. On reassessment is complaining of severe frontal headache still. Restless and clearly uncomfortable. Little diaphoretic. Still without meningeal signs otherwise. Clarifying headache onset --this did begin after vomiting at home shortly before arrival here. Trial of ketamine pain dose. Became rather anxious but able to be calmed down. Ultimately this did seem to help with his pain a great deal. Residual pain though with requested more full resolution. Origin of pain seems to be occipital insertion of the neck musculature. Diaphoretic. Finally given 25 mcg of fentanyl prior to departure however with continued complaint. Given extreme demonstration of what appears to be severe pain ultimately I did decide to scan Mr. Cunha's head. White count was only mildly elevated but CRP was rather elevated at 16.3. Decided to proceed through imaging of abdomen as well. As expected relatively unremarkable imaging. I did review images myself. Radiology over-read as below Head CT IMPRESSION: No evidence of an acute intracranial abnormality. Moderate right mild left ethmoid sinus mucosal disease. I do not think that this ethmoidal sinus disease is indirect sales representative or the cause of his headache. Abdominal CT IMPRESSION: No etiology seen to explain right lower quadrant pain. Colonic diverticulosis. Status post appendectomy. Small fat containing umbilical hernia. Anxiety likely exacerbating symptoms. See patient discharge plan Medical Records Attestation: I reviewed the patient's medical records. Lab Data Attestation: I reviewed the patient's lab results. Labs: Lab Results 01/24/23 01/24/23 01/24/23 Range/Units 20:56 21:05 21:05 WBC 11.41 H (4.50-11.00) K/uL RBC 5.43 (4.30-5.90) m/uL Hgb 15.6 (13.5-17.5) gm/dL Hct 45.7 (37.0-53.0) % MCV 84 (80-100) fL MCH 29 (26-34) pg MCHC 34 (32-36) gm/dL RDW Coeff of Aga 13.0 (11.5-15.5) % Plt Count 175 (140-440) K/uL Neut % (Auto) 86.9 H (42.0-72.0) % Lymph % (Auto) 5.0 L (20-44) % Camp % (Auto) 7.6 (0.0-11.0) % Eos % (Auto) 0.3 (0.0-7.0) % Baso % (Auto) 0.1 (0.0-3.0) % Neut # (Auto) 9.90 H (1.7-7.0) K/uL Lymph # (Auto) 0.60 L (0.90-2.90) K/uL Camp # (Auto) 0.90 (0.00-0.90) K/UL Eos # (Auto) 0.00 (0.00-0.50) K/uL Baso # (Auto) 0.00 (0.00-0.30) K/uL Sodium 133 L (135-149) mmol/L Potassium 3.4 L (3.6-5.1) mmol/L Chloride 102 (96-114) mmol/L Carbon Dioxide 22 (20-32) mmol/L BUN 19 (7-30) mg/dL Creatinine 0.8 (0.5-1.5) mg/dL Estimated Creat Clear 95.25 Estimated GFR 103 ml/min Glucose 130 H (60-115) mg/dL Calcium 8.7 (8.4-10.6) mg/dL Total Bilirubin 0.7 (0.1-1.5) mg/dL Direct Bilirubin 0.2 (0.0-0.5) mg/dL AST 21 (12-35) U/L ALT 22 (4-50) U/L Alkaline Phosphatase 65 (40-150) U/L C-Reactive Protein 16.3 H (0.5-1.0) mg/dL Total Protein 7.3 (6.0-8.3) g/dL Albumin 4.3 (3.3-5.0) g/dL Lipase 49 (23-300) U/L Urine Color (Yellow) Urine Appearance (Clear) Urine pH (5.0-8.5) Ur Specific Carnation (1.000-1.030) Urine Protein (Negative) Urine Glucose (UA) (Negative) Urine Ketones (Negative) Urine Blood (Negative) Urine Nitrite (Negative) Urine Bilirubin (Negative) Urine Urobilinogen (0.2-1.0) Ur Leukocyte Esterase (Negative) Urine RBC (0-2) Urine WBC (0-5) Ur Squamous Epith Cells (None-Few) Urine Bacteria (None) Urine Mucus (None) Ethyl Alcohol < 0.01 L (0.01-0.03) % SARS-CoV-2 (PCR) Negative SARS-CoV-2 (Negative) Influenza Type A (PCR) Negative PCR FLU A (Negative) Influenza Type B (PCR) Negative PCR FLU B (Negative) 01/24/23 01/24/23 Range/Units 21:05 22:58 WBC (4.50-11.00) K/uL RBC (4.30-5.90) m/uL Hgb (13.5-17.5) gm/dL Hct (37.0-53.0) % MCV (80-100) fL MCH (26-34) pg MCHC (32-36) gm/dL RDW Coeff of Aga (11.5-15.5) % Plt Count (140-440) K/uL Neut % (Auto) (42.0-72.0) % Lymph % (Auto) (20-44) % Camp % (Auto) (0.0-11.0) % Eos % (Auto) (0.0-7.0) % Baso % (Auto) (0.0-3.0) % Neut # (Auto) (1.7-7.0) K/uL Lymph # (Auto) (0.90-2.90) K/uL Camp # (Auto) (0.00-0.90) K/UL Eos # (Auto) (0.00-0.50) K/uL Baso # (Auto) (0.00-0.30) K/uL Sodium (135-149) mmol/L Potassium (3.6-5.1) mmol/L Chloride (96-114) mmol/L Carbon Dioxide (20-32) mmol/L BUN (7-30) mg/dL Creatinine (0.5-1.5) mg/dL Estimated Creat Clear Estimated GFR ml/min Glucose (60-115) mg/dL Calcium (8.4-10.6) mg/dL Total Bilirubin Cancelled (0.1-1.5) mg/dL Direct Bilirubin Cancelled (0.0-0.5) mg/dL AST Cancelled (12-35) U/L ALT Cancelled (4-50) U/L Alkaline Phosphatase Cancelled (40-150) U/L C-Reactive Protein (0.5-1.0) mg/dL Total Protein Cancelled (6.0-8.3) g/dL Albumin Cancelled (3.3-5.0) g/dL Lipase Cancelled (23-300) U/L Urine Color Yellow (Yellow) Urine Appearance Clear (Clear) Urine pH 5.5 (5.0-8.5) Ur Specific Carnation 1.015 (1.000-1.030) Urine Protein 1+ A (Negative) Urine Glucose (UA) Negative (Negative) Urine Ketones Trace A (Negative) Urine Blood 1+ A (Negative) Urine Nitrite Negative (Negative) Urine Bilirubin Negative (Negative) Urine Urobilinogen 0.2 (0.2-1.0) Ur Leukocyte Esterase Negative (Negative) Urine RBC 0-2 (0-2) Urine WBC 0-2 (0-5) Ur Squamous Epith Cells Few (None-Few) Urine Bacteria Few A (None) Urine Mucus Few A (None) Ethyl Alcohol Cancelled (0.01-0.03) % SARS-CoV-2 (PCR) (Negative) Influenza Type A (PCR) (Negative) Influenza Type B (PCR) (Negative) Discharge Plan Discharge Clinical Impression: Headache, Abdominal pain Patient Disposition: Home w/ Parent or Adult Condition: Improved Additional Instructions: Your ethmoid sinuses in your forehead did show some mucosal swelling -- I am not convinced that that is why you were having a headache. Otherwise your inflammatory marker CRP was elevated and your white count mildly so. Overall I would say labs were reassuring. Focus on hydration. Slow advance of diet over the next 24-36 hours. An ice pack at your neck/back of your head might be helpful. Zofran if needed in the future from [facility]. Prescriptions: No Action albuterol sulfate 90 mcg/actuation HFA aerosol inhaler 1 inh inhalation QID PRN (Reason: shortness of breath or wheezing) Qty: 8.5 0 RF Spiriva Respimat 2.5 mcg/actuation mist 2 inh INHALATION Q24H Label Comments: INHALE 2 PUFFS BY MOUTH EVERY DAY AT THE SAME TIME EACH DAY. bupropion HCl 200 mg tablet sustained-release 12 hr 200 mg PO BID Qty: 180 3RF tamsulosin 0.4 mg capsule 0.4 mg PO QDAY Qty: 30 9RF atorvastatin 20 mg tablet See Rx Instructions .ROUTE .COMPLEX Qty: 90 3RF Dose Instruction: TAKE 1 TABLET BY MOUTH AT BEDTIME Rx Instructions: TAKE 1 TABLET BY MOUTH AT BEDTIME peg 3350-electrolytes [Golytely] 236-22.74-6.74 -5.86 gram recon soln 240 ml PO Q10M Qty: 4000 0RF Rx Instructions: Follow colonoscopy prep instructions given in clinic. fluticasone propion-salmeterol [Wixela Inhub] 250-50 mcg/dose blister with device 1 inh inhalation BID Qty: 60 11RF Follow Up/Referrals: Ananda Richardson MD [Primary Care Provider] - Stand Alone Forms: [employer] Info Instructions
[2023-01-24] MEDS: ONDANSETRON 2 MG/ML inj 4 MG IVP (20:51)
[2023-01-24] MEDS: 0.9 % SODIUM CHLORIDE 1000 ml 1,000 ML IV (20:51)
[2023-01-24] MEDS: KETOROLAC 30 MG/ML inj IVP (20:51)
[2023-01-24] MEDS: HYOSCYAMINE SULFATE 0.125 MG TAB 0.25 MG SUBLINGUAL (21:03)
[2023-01-24 21:15] LABS: Basophils Percent Auto 0.1 % (0.0-3.0); Eosinophils Percent Auto 0.3 % (0.0-7.0); Hematocrit 45.7 % (37.0-53.0); Hemoglobin* 15.6 gm/dL (13.5-17.5); Immature Granulocytes Pct Auto 0.1 %; Mean Corpuscular HGB Conc 34 gm/dL (32-36); Mean Corpuscular Hemoglobin 29 pg (26-34); Mean Corpuscular Volume 84 fL (80-100); Monocytes Percent Auto 7.6 % (0.0-11.0); Neutrophils Percent Auto 86.9 % (42.0-72.0); Platelet Count* 175 K/uL (140-440); Red Blood Count 5.43 m/uL (4.30-5.90); White Blood Count* 11.41 K/uL (4.50-11.00)
[2023-01-24 21:22] LABS: Slide Review Reflex No
[2023-01-24 21:30] LABS: Albumin* 4.3 g/dL (3.3-5.0); Chloride* 102 mmol/L (96-114)
[2023-01-24 21:31] LABS: Potassium* 3.4 mmol/L (3.6-5.1); Sodium* 133 mmol/L (135-149)
[2023-01-24 21:33] LABS: Creatinine* 0.8 mg/dL (0.5-1.5); Est. Creatinine Clearance* 95.25; Estimated Glomerular Filt Rate 103 ml/min
[2023-01-24 21:34] LABS: Alanine Aminotransferase* 22 U/L (4-50); Alkaline Phosphatase* 65 U/L (40-150); Aspartate Amino Transferase* 21 U/L (12-35); Bilirubin Direct* 0.2 mg/dL (0.0-0.5); Bilirubin Total* 0.7 mg/dL (0.1-1.5); Blood Urea Nitrogen* 19 mg/dL (7-30); Calcium* 8.7 mg/dL (8.4-10.6); Carbon Dioxide* 22 mmol/L (20-32); Glucose* 130 mg/dL (60-115); Lipase* 49 U/L (23-300); Total Protein* 7.3 g/dL (6.0-8.3)
[2023-01-24 21:36] LABS: Ethanol* < 0.01 % (0.01-0.03)
[2023-01-24 21:49] LABS: C Reactive Protein* 16.3 mg/dL (0.5-1.0)
[2023-01-24] MEDS: LORazepam 2 MG/ML inj 0.5 MG IVP (21:51)
[2023-01-24] MEDS: KETAMINE HCL 20 MG in 0.9 % SODIUM CHLORIDE 100 ml 100 ML 300.6 MG IVPB (21:51)
[2023-01-24 22:07] LABS: PCR FLU A Negative PCR FLU A (Negative); PCR FLU B Negative PCR FLU B (Negative)
--- NOTE | 2023-01-24 22:11 | CRLHL7_ITS ---
For Patients: As a result of the Century Cures Act, medical imaging exams and procedure reports are released immediately into your electronic medical record. You may view this report before your referring provider. If you have questions, please contact your health care provider. INDICATION: Right lower quadrant pain TECHNIQUE: CT abdomen and pelvis acquired with 98 cc Isovue 370 IV contrast. COMPARISON: October 24, 2022 FINDINGS: Lower chest: Unremarkable. Liver: Unremarkable. Spleen: Unremarkable. Pancreas: Unremarkable. Gallbladder and bile ducts: Unremarkable. Adrenal glands: Unremarkable. Kidneys: Unremarkable. GI tract: Colonic diverticulosis. Status post appendectomy. Vascular structures: Aortoiliac calcifications. Lymph nodes: Unremarkable. Miscellaneous: Small fat containing umbilical hernia. No free air or significant free fluid. Pelvic Organs: Unremarkable. Bones: Unremarkable for age. IMPRESSION: No etiology seen to explain right lower quadrant pain. Colonic diverticulosis. Status post appendectomy. Small fat containing umbilical hernia. Please note that all CT scans at this facility use dose modulation, iterative reconstruction, and/or weight-based dosing when appropriate to reduce radiation dose to as low as reasonably achievable. Dictated by Shannan Ramos MD @ 01/24/2023 11:30:47 PM (Electronically Signed)
--- NOTE | 2023-01-24 22:11 | CRLHL7_ITS ---
For Patients: As a result of the Century Cures Act, medical imaging exams and procedure reports are released immediately into your electronic medical record. You may view this report before your referring provider. If you have questions, please contact your health care provider. INDICATION: Severe frontal headache. TECHNIQUE: CT head without contrast. COMPARISON: None. FINDINGS: CSF spaces: Within normal limits for age. Brain parenchyma and extra-axial spaces: The vela-white differentiation is normal. No sign of mass, hemorrhage, or midline shift. No extra-axial fluid collection. Skull base and calvarium: Moderate right and mild left ethmoid air cell sinus mucosal disease. The mastoid air cells are clear. The visualized orbits are grossly unremarkable. No skull fractures. Atherosclerotic calcification of the bilateral carotid siphons. IMPRESSION: No evidence of an acute intracranial abnormality. Moderate right mild left ethmoid sinus mucosal disease. Please note that all CT scans at this facility use dose modulation, iterative reconstruction, and/or weight-based dosing when appropriate to reduce radiation dose to as low as reasonably achievable. Dictated by Jsoe Marie MD @ 01/24/2023 11:28:14 PM (Electronically Signed)
[2023-01-24 22:15] LABS: SARS PCR* Negative SARS-CoV-2 (Negative)
[2023-01-24 23:08] LABS: Appearance Urine Clear (Clear); Bilirubin Urine Negative (Negative); Blood Urine 1+ (Negative); Color Urine Yellow (Yellow); Glucose Urine Negative (Negative); Ketones Urine Trace (Negative); Leukocyte Esterase Urine Negative (Negative); Nitrite Urine Negative (Negative); Protein Urine 1+ (Negative); Specific Gravity Urine 1.015 (1.000-1.030); Urobilinogen Urine 0.2 (0.2-1.0); pH Urine 5.5 (5.0-8.5)
[2023-01-24 23:24] LABS: Bacteria Urine Few; Mucus Urine Few; RBC Urine 0-2 (0-2); Squamous Epithelial Cell Urine Few (None-Few); WBC Urine 0-2 (0-5)
[2023-01-24] MEDS: fentaNYL 100 MCG/2 ML inj 25 MCG IVP (23:55)
== END 2023-01-25 00:13 | disposition home or self-care (01) ==
PROVIDERS: Emergency Provider Family Medicine; PCP Family Medicine
DX: R10.31 Right lower quadrant pain (principal); R51.9 Headache, unspecified
CPT/HCPCS: 36415; 70450; 74177; 80048; 80076; 81001; 82077; 83690; 85025; 86140; 87086; 87631; 96365; 96375; 99284; 99285; A9270; J1885; J2060; J2405; J3010; J3490; J7030; Q9967

== ENCOUNTER 2023-02-01 16:49 | Emergency (ER) | payer MEDICAID, SELFPAY ==
[2023-02-01 17:03] VITALS: BP 138/76; PULSE 96; RESP 16; TEMP 36.3; O2SAT 94; BMI 30.4
--- NOTE | 2023-02-01 17:52 | ED_ITS ---
HPI - General Adult General Chief complaint: Sore Throat Stated complaint: Sore Throat Fever Cough Time Seen by Provider: 02/01/23 17:37 History of Present Illness HPI narrative: This 57-year-old male comes in with his daughter and both reporting symptoms of sore throat and occasional cough. There is no report of fever or shortness of breath. These symptoms started yesterday. This patient also indicates some pain in his right ear in the right side of his neck and jaw. Related Data Home Medications Medication Instructions Recorded Confirmed tiotropium bromide 2.5 2 inh inhalation Q24H 07/13/22 02/01/23 mcg/actuation mist for inhalation (Spiriva Respimat) ondansetron 4 mg disintegrating 2 mg PO Q6-8H PRN 02/01/23 02/01/23 tablet Previous Rx's Medication Instructions Recorded bupropion HCl 200 mg tablet,12 hr 200 mg PO BID #180 tabs 06/17/22 sustained-release albuterol sulfate 90 mcg/actuation 1 inh inhalation QID PRN shortness 06/29/22 aerosol inhaler of breath or wheezing #8.5 grams tamsulosin 0.4 mg capsule 0.4 mg PO QDAY #30 caps 08/21/22 atorvastatin 20 mg tablet See Rx Instructions .Route 09/22/22 .COMPLEX #90 tabs fluticasone 250 mcg-salmeterol 50 1 inh inhalation BID #60 ea 11/25/22 mcg/dose blistr powdr for inhalation (Wixela Inhub) amoxicillin 500 mg capsule 500 mg PO TID 10 days #30 caps 02/01/23 Allergies Allergy/AdvReac Type Severity Reaction Status Date / Time acetaminophen [From Percocet] Allergy Unknown Verified 02/01/23 17:07 oxycodone [From Percocet] Allergy Unknown Verified 02/01/23 17:07 hydrocodone Allergy Verified 02/01/23 17:07 Review of Systems Status of ROS: Reports: 10 or more systems reviewed and unremarkable except as noted in History and below Narrative: Constitutional: No fevers, no weight gain or loss. Eyes: No discharge. No vision changes. HENT: Sore throat. Right ear and neck pain. Cardiovascular: No chest pain, no palpitations. Respiratory: No shortness of breath, no wheezes. Occasional cough. Gastrointestinal: No abdominal pain, no vomiting, no diarrhea. Genitourinary: No dysuria, no hematuria. Musculoskeletal: Normal range of motion. Skin: No rashes, no pruritis. Neurological: No dizziness, weakness, sensory change, speech change. Endo/Heme/Allergies: No bruising or bleeding. No polydipsia. Pysch: no suicidality, no anxiety, no insomnia. All other systems reviewed and are negative. PFSH PFSH Medical History RLL pneumonia Surgical History History of appendectomy Status post lumbar spinal fusion Family History Father No problems noted. 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 HEENT: Normocephalic, atraumatic. Tympanic membranes appear normal bilaterally. Oropharynx has erythema without exudate or tonsillar hypertrophy. Neck: Normal range of motion. Nontender. Supple. Heart: Regular. No murmurs. Normal rate. Intact distal pulses. Lungs: Clear to auscultation. No chest discomfort. No wheezes, rhonchi, or rales. Abdomen: Normal bowel sounds. Nontender. No rebound tenderness. Genitalia: Deferred. Back: No midline tenderness. Normal range of motion. Extremities: Normal range of motion. No injury. Skin: Intact. No rash. Warm. No erythema or pallor. Neurologic: No altered sensation. No weakness. Alert and oriented. Psychiatric: No suicidality. No anxiety or depression. No insomnia. Nursing notes and vitals signs are reviewed. Const: Vital Signs, click to edit/add: Vital Signs - 24 hr 02/01/23 17:03 Temperature 97.3 F L Pulse Rate [Pulse Oximeter] 96 Respiratory Rate 16 Blood Pressure [Ri ght Upper Arm] 138/76 Pulse Oximetry 94 Oxygen Delivery Me thod Room Air Course Vital Signs Vital signs: Initial Vital Signs Temperature 97.3 F L 02/01/23 17:03 Temperature Source Temporal Artery Scan 02/01/23 17:03 Pulse Rate 96 02/01/23 17:03 Respiratory Rate 16 02/01/23 17:03 Blood Pressure 138/76 02/01/23 17:03 Blood Pressure Mean 96 02/01/23 17:03 Blood Pressure Position Supine 02/01/23 17:03 Pulse Oximetry 94 02/01/23 17:03 Oxygen Delivery Method Room Air 02/01/23 17:03 Vital Signs Temperature 97.3 F L 02/01/23 17:03 Pulse Rate 96 02/01/23 17:03 Respiratory Rate 16 02/01/23 17:03 Blood Pressure 138/76 02/01/23 17:03 Pulse Oximetry 94 02/01/23 17:03 Oxygen Delivery Method Room Air 02/01/23 17:03 Temperature 97.3 F L 02/01/23 17:03 Pulse Rate 96 02/01/23 17:03 Respiratory Rate 16 02/01/23 17:03 Blood Pressure 138/76 02/01/23 17:03 Pulse Oximetry 94 02/01/23 17:03 Oxygen Delivery Method Room Air 02/01/23 17:03 Medical Decision Making MDM Narrative Medical decision making narrative: This patient comes in upper respiratory symptoms as described above. Testing for strep and COVID, influenza, and RSV all returned negative. His daughter is in with similar symptoms in her strep test did return positive. I did decide to treat this patient also with amoxicillin. I advised using [id number] medicines also as needed and directed. Lab Data Labs: Lab Results 02/01/23 Range/Units 17:05 SARS-CoV-2 (PCR) Negative SARS-CoV-2 (Negative) Influenza Type A (PCR) Negative PCR FLU A (Negative) Influenza Type B (PCR) Negative PCR FLU B (Negative) RSV (PCR) Negative PCR RSV (Negative) Group A Strep DNA NOT DETECTED (Not Detectd) Discharge Plan Discharge Clinical Impression: Acute upper respiratory infection Patient Disposition: Home, Self-Care Condition: Stable Additional Instructions: Take medication as prescribed. Use [id number] medicines also as needed and directed. Follow up with MD or return if worsening. Prescriptions: New amoxicillin 500 mg capsule 500 mg PO TID 10 Days Qty: 30 0RF No Action ondansetron 4 mg tablet,disintegrating 2 mg PO Q6-8H PRN albuterol sulfate 90 mcg/actuation HFA aerosol inhaler 1 inh inhalation QID PRN (Reason: shortness of breath or wheezing) Qty: 8.5 0RF Spiriva Respimat 2.5 mcg/actuation mist 2 inh INHALATION Q24H Patient Comments: INHALE 2 PUFFS BY MOUTH EVERY DAY AT THE SAME TIME EACH DAY. bupropion HCl 200 mg tablet sustained-release 12 hr 200 mg PO BID Qty: 180 3RF tamsulosin 0.4 mg capsule 0.4 mg PO QDAY Qty: 30 9RF atorvastatin 20 mg tablet See Rx Instructions .ROUTE .COMPLEX Qty: 90 3RF Dose Instruction: TAKE 1 TABLET BY MOUTH AT BEDTIME Rx Instructions: TAKE 1 TABLET BY MOUTH AT BEDTIME fluticasone propion-salmeterol [Wixela Inhub] 250-50 mcg/dose blister with device 1 inh inhalation BID Qty: 60 11RF Follow Up/Referrals: Ananda Richardson MD [Primary Care Provider] - Stand Alone Forms: [employer] Info Instructions
[2023-02-01 17:56] LABS: Strep A DNA Probe* NOT DETECTED (Not Detectd)
[2023-02-01 18:02] LABS: PCR FLU A Negative PCR FLU A (Negative); PCR FLU B Negative PCR FLU B (Negative); PCR RSV Negative PCR RSV (Negative); SARS PCR* Negative SARS-CoV-2 (Negative)
--- OUTSIDE RECORDS SUMMARY | 2023-02-01 18:09 | XMS_ITS | Continuity of Care Document ---
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 Name Role Phone Unavailable Unavailable Unavailable Allergies, Adverse Reactions, Alerts Substance Reaction Status Criticality No Known Allergies Active No Inform ation Medications Medication Instructions Dosage Effective Dates (start - stop) Status Comments Mavyret 100 mg-40 mg tablet take 3 tablet by oral route every day with a meal for 8 weeks - Active bupropion HCl SR 100 mg tablet,12 hr sustained-release take 1 tablet by oral route 2 times every day 100 MG - Active Procedures Procedure Date Routine Serum Collection Hepatic Function Panel Offic/outpt E&m Estab Mod-hi 2 18 Routine Serum Collection Hepatitis B Surface Antibody Ag-immunoassay; Hep B Surface Hep B Core Antibody Adenoma(s), Other Neoplasm Detected Duri ng Screen Colonoscopy Flex; W/remov Les- 18 Level Iv-surg Path Gross/micro Advance Directives Directive Yes / No Effective Date File Name No Information Encounters Encounter Description Practice Location Reason(s) For Visit Diagnoses Date Provider Providers Copied on Encounter [facility], [address] [address], [place], [id number], [place] tel:[phone] [facility] No Information No Information [facility] [address] [address], [place], [id number], [place] tel:[phone] [facility] Chronic hepatitis C without hepatic coma 9 No Information Referring Provider: Referral Self. [facility], [address] [address], [place], [place], [id number], [place] tel:[phone] [facility] No Information 8 No Information Offic/outpt E&m Estab Mod-hi 2 [facility], [address] [address], [place], [place], [id number], [place] tel:[phone] [facility] GI Symptoms or Concerns (chief complaint) Chronic hepatitis C without hepatic comaDietary counseling and surveillanceEl evated blood-pressure reading, w/o diagnosis of htn 8 No Information Referring Provider: Referral Self. [facility], [address] [address], [place], [place], [id number], [place] tel:[phone] [facility] Sessile colonic polypDiverticu losis of colon without diverticulitis Encounter for screening for malignant neoplasm of colonBenign neoplasm of ascending colon 8 Servando Wallace. [address] [facility], [place], [place], [id number], [place]. tel:[phone] Referring Provider: Chet Block MD, [address] [place], [address]. tel:[phone] Family History Family Member Type Diagnosis Age At Onset Mother Problem (finding) Alive and well Father Problem (finding) Father Problem (finding) malignant neoplasm of l chucho Immunizations Vaccine Date Status Comments Influenza, injectable, MDCK, preservative free Flucelvax Quad Y administered Source: Other Provid er Payers Payer name Insurance type Covered alliance party ID Authoriza tion(s) No Information Social History Type Description Quantity Date Captured Comments Sex Male Smoking Status No Information Chief Complaint And Reason For Visit No Information Reason For Referral Reason For Referral No Information Plan Of Treatment Date Type Action Status Goal Tobacco cessation counseling completed Goal Lifestyle education regardin g diet completed Referral Ordered: Ultrasound Liver Appointment date/timeframe: 09/27/2018 ordered History Of Present Illness Encounter Date Complaint History Of Prese nt Illness GI Symptoms or Concerns This pat ient comes to the clinic for evaluation of chronic hepatitis C.The patient had evaluation in our office [place] [address] Juno Elias. As there was transition to the electronic medical record, almost all those records have been lost. There is a letter from 2003 trying to get in contact with the patient. A liver biopsy that had changes of grade 1, stage I damage. There was never response to the letter. With those lost records, the patient's genotype is not known.The patient had a liver test with a primary clinic in January 2018. Those included AST 39, AST 67, alkaline phosphatase 79, total bilirubin 0.4 and albumin 4.3. His platelet count is 222,000. His creatinine is 0.83.The patient is not certain how he contracted the virus. He denies any history of blood transfusion, intranasal or intravenous drug use. He has tattoos that he placed himself. He may have shared ink with another individual. He does not remember ever having a jaundice illness.The patien Functional Status Date Functional Assessmen t No Information Instructions Date Instruction Additional Infor massimo 1. Hepatitis C lab w ork. 2. Liver ultrasound3. Will pursue hepatitis C treatment. When you receive the medication DO NOT start. Call [phone], opt [phone], ext [phone] - Kbj. Related to Chronic hepatitis C without hepatic coma Lifestyle education regarding di et Related to Dietary counseling and surveillance Diverticulosis/Diverticulitis Re lated to Diverticulosis of colon without diverticulitis Colon Polyps Related to Diver ticulosis of colon without diverticulitis Colon Cancer Prevention Related to Diverticulosis of colon without diverticulitis Assessments Type Assessment Date No Information Patient Care Teams Name Effective Dates (start - stop) Status Members No Information
== END 2023-02-01 18:33 | disposition home or self-care (01) ==
PROVIDERS: Emergency Provider Emergency Medicine Emergency Medical Services; PCP Family Medicine
DX: J06.9 Acute upper respiratory infection, unspecified (principal)
CPT/HCPCS: 87502; 87634; 87635; 87651; 99283; 99284

== ENCOUNTER 2024-01-19 18:34 | Emergency (ER) | payer MEDICAID, SELFPAY ==
[2024-01-19 18:58] VITALS: BP 107/76; PULSE 82; TEMP 36.6; O2SAT 98; BMI 33.5
[2024-01-19 19:43] LABS: Strep A DNA Probe* NOT DETECTED (Not Detectd)
[2024-01-19 19:54] LABS: PCR FLU A Negative PCR FLU A (Negative); PCR FLU B Negative PCR FLU B (Negative); PCR RSV Negative PCR RSV (Negative); SARS PCR* Negative SARS-CoV-2 (Negative)
--- NOTE | 2024-01-19 20:39 | ED.GENADULT ---
HPI - General Adult General Date Seen: 01/19/24 Chief complaint: Sore Throat Stated complaint: sore throat Time Seen by Provider: 01/19/24 20:36 History of Present Illness HPI narrative: 58-year-old male with a history of tobacco use, COPD, sleep apnea, degenerative joint disease, hyperlipidemia, hep C, and dilated aorta, presenting to the ER today for evaluation of cough, sore throat, body aches that began overnight last night (around 2:00 a.m. this morning). He stayed home from work today because he was ill. He is feeling fatigued, achy and has a sore throat. No trouble breathing. No trouble swallowing. He has a very mild cough. No production of sputum. No fevers but he does feel a little bit chilled that just began while he was in the ER lobby. No known sick exposures. He is a smoker. He is not on any current medications. Related Data Home Medications Medication Instructions Recorded Confirmed tiotropium bromide 2.5 2 inh inhalation Q24H 07/13/22 09/22/23 mcg/actuation mist for inhalation (Spiriva Respimat) Previous Rx's Medication Instructions Recorded albuterol sulfate 90 mcg/actuation 1 inh inhalation QID PRN shortness 06/29/22 aerosol inhaler of breath or wheezing #8.5 grams fluticasone 250 mcg-salmeterol 50 1 inh inhalation BID #60 ea 11/25/22 mcg/dose blistr powdr for inhalation (Wixela Inhub) cephalexin 500 mg capsule 500 mg PO QID #40 caps 04/06/23 ibuprofen 800 mg tablet 800 mg PO TID PRN pain #60 tabs 04/07/23 zolpidem 10 mg tablet (Ambien) 10 mg PO QHS PRN insomnia #15 tabs 04/19/23 tamsulosin 0.4 mg capsule 0.4 mg PO QDAY #30 caps 07/14/23 bupropion HCl 200 mg tablet,12 hr 200 mg PO BID #180 tabs 09/29/23 sustained-release atorvastatin 20 mg tablet See Rx Instructions .Route 12/21/23 .COMPLEX #90 tabs amoxicillin 500 mg capsule 1,000 mg (2 x 500 mg) PO BID #28 01/19/24 caps Allergies Allergy/AdvReac Type Severity Reaction Status Date / Time acetaminophen [From Percocet] Allergy Unknown Verified 09/22/23 10:20 oxycodone [From Percocet] Allergy Unknown Verified 09/22/23 10:20 hydrocodone Allergy Verified 09/22/23 10:20 [facility] Medical History RLL pneumonia ?J18.9 - Pneumonia, unspecified organism (ICD-10) Surgical History Status post lumbar spinal fusion ?Z98.1 - Arthrodesis status (ICD-10) History of appendectomy ?Z90.49 - Acquired absence of other specified parts of digestive tract (ICD-10) Family History Father No problems noted. 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 Alert. Conversant. Non toxic. HENT: Head: Atraumatic. Nose: Nose normal. Right ear: Mastoid, pinna, canal normal. Some cerumen in the canal. I am able to see the upper half of the TM it is erythematous but not bulging. Borderline for otitis media. Left ear: Mastoid, pinna, canal normal. TM is dull but not erythematous or bulging Mouth/Throat: Oral mucosa is clear and moist. no trismus. Pharynx erythematous. Tonsils symmetric. No tonsillar enlargement or exudate. Eyes: Conjunctivae normal. EOM normal. Pupils equal, round, and reactive to light. No scleral icterus. Neck: Normal range of motion. Neck supple. No tracheal deviation present. Cardiovascular: Normal rate, regular rhythm. No gallop. No friction rub. No murmur heard. Symmetric radial artery pulses Pulmonary/Chest: Effort normal. No stridor. No respiratory distress. No wheezes. No rales. No rhonchi . No tenderness. Abdominal: Soft. Bowel sounds normal. No distension. No mass. No HSM. No tenderness. No rebound. No guarding. Musculoskeletal: RUE: Normal range of motion. No tenderness. No deformity LUE: Normal range of motion. No tenderness. No deformity RLE: Normal range of motion. No edema. No tenderness. No deformity LLE: Normal range of motion. No edema. No tenderness. No deformity Lymph: No cervical adenopathy. Neurological: Alert and oriented to person, place, and time. Normal strength. CN II-VII intact. No sensory deficit. GCS eye subscore is 4. GCS verbal subscore is 5. GCS motor subscore is 6. Normal coordination Skin: Skin is warm and dry. No rash noted. No pallor. Normal capillary refill. Psychiatric: Normal mood. Normal affect. Const: Vital Signs, click to edit/add: Vital Signs - 24 hr 01/19/24 18:58 Temperature 97.9 F Pulse Rate [Pulse Oximeter] 82 Blood Pressure [Ri ght Upper Arm] 107/76 Pulse Oximetry 98 Oxygen Delivery Me thod Room Air Course Vital Signs Vital signs: Initial Vital Signs Temperature 97.9 F 01/19/24 18:58 Temperature Source Temporal Artery Scan 01/19/24 18:58 Pulse Rate 82 01/19/24 18:58 Pulse Rhythm Regular 01/19/24 18:58 Blood Pressure 107/76 01/19/24 18:58 Blood Pressure Mean 86 01/19/24 18:58 Blood Pressure Position Sitting 01/19/24 18:58 Pulse Oximetry 98 01/19/24 18:58 Oxygen Delivery Method Room Air 01/19/24 18:58 Vital Signs Temperature 97.9 F 01/19/24 18:58 Pulse Rate 82 01/19/24 18:58 Blood Pressure 107/76 01/19/24 18:58 Pulse Oximetry 98 01/19/24 18:58 Oxygen Delivery Method Room Air 01/19/24 18:58 Temperature 97.9 F 01/19/24 18:58 Pulse Rate 82 01/19/24 18:58 Blood Pressure 107/76 01/19/24 18:58 Pulse Oximetry 98 01/19/24 18:58 Oxygen Delivery Method Room Air 01/19/24 18:58 Medical Decision Making MDM Narrative Medical decision making narrative: This patient presents for evaluation of sore throat, body aches, chills, fatigue.. This is consistent with an upper respiratory tract infection. He has evidence for pharyngitis but no evidence for NEUROSURGERY PHYSICIAN, RPA, uvulitis. Airway is widely patent. I do not think his sore throat reflects allergic phenomena Viral testing negative for influenza, COVID, RSV. Strep is also negative.. There is no signs at this point of serious bacterial infection such as RPA, epiglottitis, NEUROSURGERY PHYSICIAN, strep pharyngitis, pneumonia, sinusitis, meningitis, bacteremia, serious bacterial infection. He does have borderline exam findings for otitis media of the right TM. He is not having a lot of your pain there. Will give him prescription for amoxicillin to treat your infection but I advised that he not started for 48-72 hours and only if he develops ear pain. Given clear lungs, fever curve, no hypoxia and no respiratory distress I do not feel a CXR is indicated at this point as the probability of bacterial pneumonia is very unlikely. There are no significant gastrointestinal symptoms at this point and no signs of dehydration. Close followup with primary care physician is indicated. Return to ED for fever > 103, protracted vomiting, confusion, or other worsening. Lab Data Labs: Lab Results 01/19/24 Range/Units 19:02 SARS-CoV-2 (PCR) Negative SARS-CoV-2 (Negative) Influenza Type A (PCR) Negative PCR FLU A (Negative) Influenza Type B (PCR) Negative PCR FLU B (Negative) RSV (PCR) Negative PCR RSV (Negative) Group A Strep DNA NOT DETECTED (Not Detectd) Discharge Plan Discharge Clinical Impression: Otitis, Pharyngitis Patient Disposition: Home, Self-Care Condition: Stable Instructions: Pharyngitis (ED), Upper Respiratory Infection (DC) Additional Instructions: As we discussed, please stay home from work until your symptoms are improving and you had been free of fever and chills for 24 hours. Use Tylenol or ibuprofen if needed to help manage her sore throat and your body aches and your fever. Drink plenty of fluids. Eat soft foods well your throat is sore. Return to the ER right away if you have worsening sore throat, trouble swallowing, trouble breathing, worsening cough, high fever, or if you have any concerns. Your right ear does look red and you could be developing a right ear infection. Given this a day or 2 to see if it gets better on its own. If you develop severe right ear pain, starting antibiotics. Your strep test came back negative today. Prescriptions: New amoxicillin 500 mg capsule 1,000 mg PO BID Qty: 28 0RF No Action cephalexin 500 mg capsule 500 mg PO QID Qty: 40 0RF albuterol sulfate 90 mcg/actuation HFA aerosol inhaler 1 inh inhalation QID PRN (Reason: shortness of breath or wheezing) Qty: 8.5 0RF Spiriva Respimat 2.5 mcg/actuation mist 2 inh INHALATION Q24H Patient Comments: INHALE 2 PUFFS BY MOUTH EVERY DAY AT THE SAME TIME EACH DAY. fluticasone propion-salmeterol [Wixela Inhub] 250-50 mcg/dose blister with device 1 inh inhalation BID Qty: 60 11RF ibuprofen 800 mg tablet 800 mg PO TID PRN (Reason: pain) Qty: 60 2RF zolpidem [Ambien] 10 mg tablet 10 mg PO QHS PRN (Reason: insomnia) Qty: 15 0RF tamsulosin 0.4 mg capsule 0.4 mg PO QDAY Qty: 30 9RF bupropion HCl 200 mg tablet sustained-release 12 hr 200 mg PO BID Qty: 180 3RF atorvastatin 20 mg tablet See Rx Instructions .ROUTE .COMPLEX Qty: 90 0RF Dose Instruction: TAKE 1 TABLET BY MOUTH AT BEDTIME Rx Instructions: TAKE 1 TABLET BY MOUTH AT BEDTIME Follow Up/Referrals: Ananda Richardson MD [Primary Care Provider] - Stand Alone Forms: [email or web address] Info Instructions
== END 2024-01-19 21:17 | disposition home or self-care (01) ==
LOC: ED 21:05
PROVIDERS: Emergency Provider Emergency Medicine; PCP Family Medicine
DX: J02.9 Acute pharyngitis, unspecified (principal); H66.91 Otitis media, unspecified, right ear
CPT/HCPCS: 87631; 87651; 99282; 99283

== ENCOUNTER 2024-01-28 10:08 | Outpatient (CLI) | payer MEDICAID, SELFPAY | END 2024-01-28 10:09 | disposition home or self-care (01) | PROVIDERS: PCP Family Medicine; Visit Provider Family Medicine | DX: Z12.5 Encounter for screening for malignant neoplasm of prostate (principal); Z13.1 Encounter for screening for diabetes mellitus; Z13.228 Encounter for screening for other metabolic disorders | CPT/HCPCS: 80048; G0103 ==

== ENCOUNTER 2024-02-13 19:09 | Emergency (ER) | payer MEDICAID, SELFPAY ==
[2024-02-13 19:19] VITALS: BP 126/80; PULSE 72; RESP 18; TEMP 36.8; O2SAT 98; BMI 30.4
--- NOTE | 2024-02-13 20:34 | ED_ITS ---
HPI - Skin/Abscess/Foreign Bdy General Time Seen by Provider: 20:34 Date Seen: 02/13/24 Chief complaint: Skin/Abscess/Foreign Body Stated complaint: swollen legs, rash Time Seen by Provider: 02/13/24 20:24 Source: patient, RN notes reviewed and old records reviewed Mode of arrival: ambulatory Limitations: no limitations History of Present Illness HPI narrative: Juno is a very pleasant 58-year-old male with history of COPD, no tobacco use over 2 years, history of hyperlipidemia and hepatitis C who comes to the emergency room for evaluation of lesions on his legs and itching areas on his arms. Patient notes the onset of this approximately 1 week ago on WednesdayFebruary 06. He thought maybe this had something to do with his new medication which was was rosuvastatin which he had started 2 weeks previously. He discontinued the medication on February 07 but unfortunately he has had worsening symptoms. Initially the lesions noted on his legs were spreading. He notes that he has had some lesions on his arms that are small and red. Lesions on the legs are hands sized on the anterior lateral lower legs. On the right he has peeling of the skin and some open areas but no obvious purulence. However this area is more erythematous. Will attempt wound culture. Surrounding these areas of erythema are tiny scab like areas. No obvious edema. On his arms small areas of raised non blister-like papules. Areas of excoriation as well. Patient also has some erythematous with dry skin on his upper eyebrow on the right and on his left cheek. Heart with regular rate and rhythm and lungs are clear to auscultation. Patient cannot extend his neck very far and states that it is very stiff. Pitting of the nails is noted especially on 3rd fingers bilaterally. Moving all extremities. Patient denies any autoimmune issues. He does have a history of hepatitis-C. Does agree that he has arthritis most prominent in the neck. Does agree that he has difficulty especially with extension and rotation. Related Data Previous Rx's Medication Instructions Recorded ibuprofen 800 mg tablet 800 mg PO TID PRN pain #60 tabs 04/07/23 amoxicillin 500 mg capsule 1,000 mg (2 x 500 mg) PO BID #28 01/19/24 caps albuterol sulfate 90 mcg/actuation 1 inh inhalation QID PRN shortness 01/28/24 aerosol inhaler of breath or wheezing #8.5 grams rosuvastatin 5 mg tablet 5 mg PO QDAY #90 tabs 01/28/24 Allergies Allergy/AdvReac Type Severity Reaction Status Date / Time acetaminophen [From Percocet] Allergy Unknown Verified 01/28/24 09:04 oxycodone [From Percocet] Allergy Unknown Verified 01/28/24 09:04 hydrocodone Allergy Verified 01/28/24 09:04 [facility] Medical History RLL pneumonia ?J18.9 - Pneumonia, unspecified organism (ICD-10) Surgical History Status post lumbar spinal fusion ?Z98.1 - Arthrodesis status (ICD-10) History of appendectomy ?Z90.49 - Acquired absence of other specified parts of digestive tract (ICD- 10) Family History Father No problems noted. 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 Smoking Status: Former smoker What tobacco products do you use: cigarettes Smok ing quit date/years: <= 15 years ago Do you use any of these nicotine containing products: None Second hand tobacco smoke exposure: No How often do you have a drink containing alcohol: never How often do you have six or more drinks on one occasion: Never AUDIT-C Alcohol total score: 0 Non-prescribed substance use: denies use Little interest or pleasure in doing things: not at all Feeling down, depressed, or hopeless: not at all service: No Exam Const: Vital Signs, click to edit/add: Vital Signs - 24 hr 02/13/24 19:19 Temperature 98.2 F Pulse Rate [Left P ulse Oximeter] 72 Respiratory Rate 18 Blood Pressure [Ri ght Upper Arm] 126/80 Pulse Oximetry 98 Oxygen Delivery Me thod Room Air Course Course ED Course: Differential diagnosis includes but is not limited to psoriasis, psoriatic arthritis, cellulitis, allergic reaction, pruritic reaction to hepatitis-C. Will place IV and check CBC, comprehensive panel, E ESR, CRP as well as urinalysis. Will attempt wound culture of the right leg. Vital Signs Vital signs: Initial Vital Signs Temperature 98.2 F 02/13/24 19:19 Temperature Source Temporal Artery Scan 02/13/24 19:19 Pulse Rate 72 02/13/24 19:19 Respiratory Rate 18 02/13/24 19:19 Blood Pressure 126/80 02/13/24 19:19 Blood Pressure Mean 95 02/13/24 19:19 Blood Pressure Position Sitting 02/13/24 19:19 Pulse Oximetry 98 02/13/24 19:19 Oxygen Delivery Method Room Air 02/13/24 19:19 Vital Signs Temperature 98.2 F 02/13/24 19:19 Pulse Rate 72 02/13/24 19:19 Respiratory Rate 18 02/13/24 19:19 Blood Pressure 126/80 02/13/24 19:19 Pulse Oximetry 98 02/13/24 19:19 Oxygen Delivery Method Room Air 02/13/24 19:19 Temperature 98.2 F 02/13/24 19:19 Pulse Rate 72 02/13/24 19:19 Respiratory Rate 18 02/13/24 19:19 Blood Pressure 126/80 02/13/24 19:19 Pulse Oximetry 98 02/13/24 19:19 Oxygen Delivery Method Room Air 02/13/24 19:19 MDM - Skin/Abscess/Foreign Bdy MDM Narrative Medical decision making narrative: 1. Rash-recent medication of rosuvastatin is possibly causing this rash although may be completely unrelated. Laboratory values are pending to see if this is a systemic process. I will be signing this patient out to my partner Dr. Rangel for lab review and final disposition. Lab Data Labs: Lab Results 02/13/24 02/13/24 Range/Units 20:50 20:57 WBC 8.84 (4.50-11.00) K/uL RBC 5.20 (4.30-5.90) m/uL Hgb 15.0 (13.5-17.5) gm/dL Hct 44.9 (37.0-53.0) % MCV 86 (80-100) fL MCH 29 (26-34) pg MCHC 33 (32-36) gm/dL RDW Coeff of Aga 12.8 (11.5-15.5) % Plt Count 224 (140-440) K/uL Neut % (Auto) 54.6 (42.0-72.0) % Lymph % (Auto) 28.5 (20-44) % [place] % (Auto) 9.6 (0.0-11.0) % Eos % (Auto) 6.7 (0.0-7.0) % Baso % (Auto) 0.5 (0.0-3.0) % Neut # (Auto) 4.83 (1.7-7.0) K/uL Lymph # (Auto) 2.52 (0.90-2.90) K/uL [place] # (Auto) 0.80 (0.00-0.90) K/UL Eos # (Auto) 0.59 H (0.00-0.50) K/uL Baso # (Auto) 0.04 (0.00-0.30) K/uL Abs Immat Gran (auto) 0.01 (0.00-0.30) K/uL Imm/Tot Granulo (auto) 0.1 % Sodium 139 (135-149) mmol/L Potassium 4.2 (3.6-5.1) mmol/L Chloride 107 (96-114) mmol/L Carbon Dioxide 25 (20-32) mmol/L Anion Gap 7 (7-15) mEq/L BUN 19 (7-30) mg/dL Creatinine 0.8 (0.5-1.5) mg/dL Estimated Creat Clear 97.38 Estimated GFR 103 ml/min Glucose 91 (60-115) mg/dL Calcium 9.6 (8.4-10.6) mg/dL Total Bilirubin 0.4 (0.1-1.5) mg/dL AST 24 (12-35) U/L ALT 21 (4-50) U/L Alkaline Phosphatase 74 (40-150) U/L Total Creatine Kinase 141 (54-186) U/L C-Reactive Protein < 0.5 L (0.5-1.0) mg/dL Total Protein 7.2 (6.0-8.3) g/dL Albumin 4.3 (3.3-5.0) g/dL Urine Color Yellow (Yellow) Urine Appearance Clear (Clear) Urine pH 6.0 (5.0-8.5) Ur Specific [place] 1.025 (1.000-1.030) Urine Protein Negative (Negative) Urine Glucose (UA) Negative (Negative) Urine Ketones Negative (Negative) Urine Blood Negative (Negative) Urine Nitrite Negative (Negative) Urine Bilirubin Negative (Negative) Urine Urobilinogen 0.2 (0.2-1.0) Ur Leukocyte Esterase Negative (Negative) Urine RBC 0-2 (0-2) Urine WBC 0-2 (0-5) Ur Squamous Epith Cells None (None-Few) Urine Bacteria None (None) Discharge Plan Discharge Prescriptions: No Action rosuvastatin 5 mg tablet 5 mg PO QDAY Qty: 90 3RF albuterol sulfate 90 mcg/actuation HFA aerosol inhaler 1 inh inhalation QID PRN (Reason: shortness of breath or wheezing) Qty: 8.5 2RF amoxicillin 500 mg capsule 1,000 mg PO BID Qty: 28 0RF ibuprofen 800 mg tablet 800 mg PO TID PRN (Reason: pain) Qty: 60 2RF Follow Up/Referrals: Ananda Richardson MD [Primary Care Provider] -
--- OUTSIDE RECORDS SUMMARY | 2024-02-13 20:46 | XMS_ITS | Referral Summary ---
Author Name Unknown Organization [place] Address [address] [place] [address] Care Team Providers Care Loader Demolder Name Role Phone Sergio Germain MD Primary Care Provider Unav ailable Allergies Active Allergy Reactions Criticality Noted Date Comments No Known Allergies 01/08/2003 Oxycodone-Acetaminoph en Other (See Comments) Medium 10/09/2009 States his behavior became violent Medications Medication Sig Dispensed Refills Start Date End Date Status ORDER FOR DMEIndications:Contu marilee of foot post op shoe 1 0 08/31/2005 Active Additional Information Patient not taking.Reported on 03/02/2018 FLUTICASONE PROPIONATE (NASAL) INHA 50 MCG/DOSE NAIndications:Maxill kimberly sinusitis 2 sparys each nostril daily 1 month 0 04/11/2009 Active buPROPion (WELLBUTRIN) 100 MG tablet Take 100 mg by mouth 0 02/15/2018 Acti ve Active Problems Problem Noted Date Diagnosed Date HYPERLIPIDEMIA LDL GOAL <130 09/07/2010 Chronic hepatitis C virus infection 01/14/2003 Overview: Problem list name updated by automated process. Provider to review Obstructive sleep apnea syndrome 01/14/2003 Overview: Problem list name updated by automated process. Provider to review Depressive disorder, not elsewhere classified Sciatica 01/14/2003 Hyperlipidemia 01/14/2003 Overview: Problem list name updated by automated process. Provider to review Immunizations Name Administration Dates Next Due TD,PF 7+ (Tenivac) 04/14/2000 TDAP (Adacel,Boostrix) 03/26/2012 Social History Tobacco Use Types Packs/Day Years Used Date Smoking Tobacco: Every Day Cigarettes 1.5 0 Smokeless Tobacco: Never Tobacco Cessation:Ready to Q uit: Yes; Counseling Given: Yes Comments:down to 3 per day Alcohol Use Standard Drinks/Week Comments No 0 (1 standard drink = 0.6 oz pur e alcohol) Sex and Gender Information Value Date Recorded Sex Assigned at Not on file Gender Identity Not on file Sexual Orientation Not on file Last Filed Vital Signs Vital Sign Reading Time Taken Comments Blood Pressure 112/75 08/16/2019 3:53 PM CDT Pulse 78 08/16/2019 3:53 PM CDT Temperature 36.8 ??C (98.3 ??F) 04/11/2009 3:19 PM CD T Respiratory Rate 16 08/16/2019 3:53 PM CDT Oxygen Saturation 94% 08/16/2019 3:53 PM CDT Inhaled Oxygen Concentration - - Weight 93.4 kg (206 lb) 08/16/2019 3:53 PM CDT Height 175.3 cm (5' 9) 08/16/2019 3:53 PM CDT Body Mass Index 30.42 08/16/2019 3:53 PM CDT Plan of Treatment Not on file Care Teams Loader Demolder Relationship Specialty Start Date End Date Sergio Germain MD PCP - General 12/23/01
--- OUTSIDE RECORDS SUMMARY | 2024-02-13 20:46 | XMS_ITS | Clinical Summary ---
Author Name Unknown Organization [facility] Address [place], [place] [address] Care Team Providers Care Design Assistant Name Role Phone Sarahi Quigley DDTiti Primary Care Pr ovider Allergies Active Allergy Reactions Criticality Noted Date Comments Hydrocodone-Acetaminophen 12/22/2010 heartburn Oxycodone-Acetaminophen 12/22/2010 moodiness Medications Medication Sig Dispensed Refills Start Date End Date Status CPAPIndications:CLARE on CPAP cpap supplies with nasal mask 1 unit 02/15/2018 Active fluticasone (50 mcg per actuation) nasal solution (FLONASE)Indications :Dysfunction of right eustachian tube Inhale 2 Sprays into both nostrils once daily. 1 Bottle 3 02/21/2019 Active loratadine-pseudoeph edrine, 10-240 mg, 24 hr (CLARITIN-D 24 HOUR) 10-240 mg per tabletIndications:Ac [place] non-recurrent frontal sinusitis Take 1 tablet by mouth once daily. 10 tablet 08/23/2019 Active buPROPion (WELLBUTRIN) 100 mg tabletIndications:Dy sthymia Take 1 tablet by mouth 2 times daily. 60 tablet 5 08/23/2019 Active Active Problems Problem Noted Date Diagnosed Date Dysthymia 09/06/2018 Melancholy 02/15/2018 Smoker 02/15/2018 Chronic hepatitis C without hepatic coma 018 CLARE on CPAP 05/26/2013 Other ankle sprain and strain 11/19/2010 Immunizations Name Administration Dates Next Due Influenza, IIV4 09/06/2018 Td (Age >=7 Years) 04/14/2000 Tdap 03/26/2012 Family History Medical History Relation Name Comments Good Health Brother 1 Good Health Brother 2 Cancer Father Good Health Sister 1 Good Health Sister 2 Relation Name Status Comments Brother 1 Alive Brother 2 Alive Father Mother Alive Sister 1 Alive Sister 2 Alive Social History Tobacco Use Types Packs/Day Years Used Date Smoking Tobacco: Former Cigarettes 1.5 38.5 1 980 - 05/12/2018 Smokeless Tobacco: Never Alcohol Use Standard Drinks/Week Comments No 0 (1 standard drink = 0.6 oz pur e alcohol) PHQ-2 Answer Date Recorded PHQ-2 Score 0 08/23/2019 Sex and Gender Information Value Date Recorded Sex Assigned at Not on file Gender Identity Not on file Sexual Orientation Not on file Obstetrics History Last Filed Vital Signs Vital Sign Reading Time Taken Comments Blood Pressure 126/78 08/23/2019 7:39 AM CDT Pulse 82 08/23/2019 7:39 AM CDT Temperature 36.6 ??C (97.8 ??F) 08/23/2019 7:39 AM CD T Respiratory Rate 16 04/03/2015 9:34 AM CDT Oxygen Saturation 96% 08/23/2019 7:39 AM CDT Inhaled Oxygen Concentration - - Weight 94.5 kg (208 lb 6.4 oz) 08/23/2019 7:39 A M CDT Height 175.3 cm (5' 9) 08/23/2019 7:39 AM CDT Body Mass Index 30.78 08/23/2019 7:39 AM CDT Plan of Treatment Health Maintenance Due Date Last Done Comments HIV for age 15-65 1980 Zoster (shingles) series for age 50+ (1 of 2) 2015 BMI (ht and wt on same day) for age 18+ 08/23/2020 08/23/2019, 02/21/2019, 09/06/2018, Additional history exists Depression screening for age 12+ 08/23/2020 08/23/2019, 01/24/2018 Tetanus booster 03/26/2022 03/26/2012, 04/14/2000 Colonoscopy through age 75 03/14/2023 03/14/2018 COVID-19 vaccine series ( season) 2023 Lipids for age 45-75 02/22/2024 02/21/2019, 02/16/20 18 Influenza for age 50-64 07/09/2024 09/06/2018 Hepatitis C screening for age 18-79 Completed 07/20/2003 Tdap Completed 03/26/2012 Pneumococcal series for age 6-64 Aged Out No longer eligible based on patient's age to complete this topic Procedures Procedure Name Priority Date/Time Associated Diagnosis Comments LIPID PANEL W REFLEX MEASURED LDL Routine 02/21/2019 8:23 AM CDT Health care maintenance SCAN-COLONOSCOPY 03/14/2018 3:00 PM CDT from Last 3 Months or Most Recently Relevant to Health Maintenance Results * (ABNORMAL) LIPID PANEL W REFLEX MEASURED LDL (02/21/2019 8:23 AM CDT) CHOLESTEROL,TOTAL 200(H) 100 - 199 mg/dL 02/21/2019 2:09 PM CDT [facility] [employer] LABORATORY-[facility] TRAL LABORATORY TRIGLYCERIDES 102 <150 mg/dL 02/21/2019 2:09 PM CDT [facility] TR[facility] LAB[facility]ATORY HDL CHOLESTEROL 30(L) >40 mg/dL 9 2:09 PM CDT [facility] TRAL LABORATORY NON-HDL CHOLESTEROL 170(H) <145 mg/dl 02/21/2019 2:09 PM CDT [facility] TRAL LABORATORY CHOL/HDL RATIO 6.67(H) <4.50 02/21/2019 2:09 PM CDT [facility]ATORY-[facility] TRAL LABORATORY LDL CHOLESTEROL 150(H) <=130 mg/dL 02/21/2019 2:09 PM CDT [facility] TRAL LABORATORY PROVIDER ORDERED STATUS FASTING 02/21/2019 2:09 PM CDT [facility] TRAL LABORATORY Blood BLOOD SPECIMEN / Unknown Venipuncture / Unknown 02/21/2019 8:23 AM CDT 02/21/2019 8:23 AM CDT Chet [facility] CHEMISTR[facility] LABORATORY-CENTRAL LABORATORY [address] [place] [address], [place] * SCAN-COLONOSCOPY (03/14/2018 3:00 PM CDT) Narrative Procedure Note Loco Al DO - 03/14/2018 2:01 PM CDT [facility] [address], [address], [place] [address] Patient Name: Juno Cunha Gender: Male Exam Date: 03/14/2018 Visit Number: [id number] Age: 52 Years Date of : 1965 Attending MD: Loco Al DO Medical Record#: [id number] ----- Procedure: Colonoscopy Indications: Colorectal cancer screening Referring MD: Chet Block MD Primary MD: Chet Block MD Medications: Complications: Procedure: An examination of the heart and lungs was performed and found to be withinacceptable limits. The patient was therefore deemed a reasonablecandidate for endoscopy and 0 sedation. The risks and benefits of the procedure were explained to the patient.After obtaining informed consent, the patient received monitoredanesthesia care and I passed the scope without difficulty via the rectum to the cecum. The appendiceal orificeand ic valve were identified. The scope was retroflexed during theexamination The quality of the prep was good (Miralax/Gatorade/2 tabletsBisacodyl/Magnesium Citrate). This was a complete examination throughout the entire colon. Findings: Polyp location: ascending colon. Quantity: 1. Size: 8 mm. Polyp shape:sessile. Maneuver: polypectomy was performed with a hot snare. Removal: complete. Retrieval: complete. Bleeding: none. Diverticulosis. Location: - sigmoid. Description: moderate. Size:medium. Quantity: several. No inflammation present. Remainder of the exam is normal. Impression: Sessile colonic polyp Diverticulosis of colon without diverticulitis Pathology Results: A: COLON, ASCENDING, POLYP: 1. Sessile serrated adenoma 2. No overt dysplasia present 3. Per the attached endoscopy report: a. Polyp size: 8mm b. Resection: Complete c. Retrieval: Complete MICROSCOPIC A: Performed Electronically signed by: Jerardo Alfaro MD We will arrange a follow up colonoscopy for you in 5 years. Final Plan: Return for a colonoscopy in 5 years. We will attempt to contact you at appropriate intervals via U.S. mail. Wemay not be able to find you or contact you at that time, therefore youshould know that the responsibility for following our recommendation restswith you. If you don't hear from us at the time your procedure is due,please contact our office to schedule an appointment. If your contactinformation should change, please contact our office so that we can updateyour record. Additional Comments: We will arrange a follow up colonoscopy for you in 5 years. _Electronically signed by: Loco Al DO 03/14/2018 Looc Al DO OTHER from Last 3 Months or Most Recently Relevant to Health Maintenance Care Teams Design Assistant Relationship Specialty Start Date End Date Sarahi Quigley DDS [address] [place] [id number] PCP - General Dentistry - General 02/15/18
--- OUTSIDE RECORDS SUMMARY | 2024-02-13 20:46 | XMS_ITS | Clinical Summary ---
Author Name Unknown Organization [place] Address [address] [place] [address] Care Team Providers Care Conveyor Weigher Operator Name Role Phone Sergio Germain MD Primary [...] TD,PF 7+ (Tenivac) 04/14/2000 TDAP (Adacel,Boostrix) 03/26/2012 Family History Medical History Relation Comments Cancer Father LUNG Relation Status Comments Brother 1 Alive 40 Brother 2 Alive 36 Father (Age 57) Mother Alive 62 Sister 1 Alive ADOPTED 30 Sister 2 Alive ADOPTED 30 Social History Tobacco Use Types Packs/Day Years [...] of Treatment Not on file Care Teams Conveyor Weigher Operator Relationship Specialty Start Date End Date Sergio Germain MD PCP - General 12/23/01
--- OUTSIDE RECORDS SUMMARY | 2024-02-13 20:46 | XMS_ITS | Encounter Summary ---
Author Name Unknown Organization [place] Address [address] [place] [address] Care Team Providers Care Plastic Cutter Name Role Phone Sergio Germain MD Primary Care Provider Unav ailable Dante Brady PA-C Unavailable [phone] Dante Brady PA-C Unavailable [phone] Reason for Visit * Reason Comments Sleep Problem Encounter Details Date Type Department Care Team (Late st Contact Info) Description 02/18/2018 [facility] [place] [address] [facility] [address] [place] [phone] Gio Klein MD [address] [place] [address] [place] [id number] Social History Tobacco Use Types Packs/Day Years Used Date Smoking Tobacco: Every Day Cigarettes 1.5 0 Alcohol Use Standard Drinks/Week Comments No 0 (1 standard drink = 0.6 oz pur e alcohol) Sex and Gender Information Value Date Recorded Sex Assigned at Not on file Gender Identity Not on file Sexual Orientation Not on file documented as of this encounter Plan of Treatment Not on file documented as of this encounter Visit Diagnoses Not on filedocumented in this encounter Care Teams Plastic Cutter Relationship Specialty Start Date End Date Sergio Germain MD PCP - General 12/23/01 Dante Brady PA-C [address] [place] [address] [place] [id number] Assigned Neuroscience Provider 01/22/21 02/15/21 Dante Brady PA-C [address] [facility] [address] [place] [address] Assigned Sleep Provider 01/22/21 documented as of this encounter
--- OUTSIDE RECORDS SUMMARY | 2024-02-13 20:46 | XMS_ITS | Continuity of Care Document ---
Author Name Unknown Organization [facility] Address [address] [address] [place] [address] Phone Care Team Providers Care Collision Mechanic Name Role Phone Unavailable Unavailable Unavailable Allergies, [...] Encounter [facility], [address] [address], [place], [id number], [place] tel:[phone] [facility] No Information No Information [facility] [address] [address], [place], [id number], [place] tel:[phone] [facility] Chronic hepatitis C without hepatic coma 9 No Information Referring Provider: Referral Self, USE FOR SELF REFERRALS. [facility], [address] [address], [place], [place], [id number], [place] tel:[phone] [facility] No Information 8 No Information Offic/outpt E&m Estab Mod-hi 2 [facility], [address] [address], [place], [place], [id number], [place] tel:[phone] [facility] GI Symptoms or Concerns (chief complaint) Chronic hepatitis C without hepatic comaDietary counseling and surveillanceEl evated blood-pressure reading, w/o diagnosis of htn 8 No Information Referring Provider: Referral Self, USE FOR SELF REFERRALS. [facility], [address] [address], [place], [place], [id number], [place] tel:[phone] [facility] Sessile colonic polypDiverticu losis of colon without diverticulitis Encounter for screening for malignant neoplasm of colonBenign neoplasm of ascending colon 8 Servando Wallace. [address] [facility], [facility] [address], [place], [place], [id number], [place]. tel:[phone] Referring Provider: Chet Block MD, [address] [place], [address]. tel:[phone] Family History Family Member Type Diagnosis Age At Onset Mother Problem (finding) Alive and well Father Problem (finding) Father Problem (finding) malignant neoplasm of l chucho Immunizations Vaccine Date Status Comments Influenza, injectable, MDCK, preservative free Flucelvax Quad Y administered Source: Other Provid er Payers Payer name Insurance type Covered constitution party ID Authoriza tion(s) No Information Social [...] receive the medication DO NOT start. Call [phone], opt 8, ext [phone] - Sgl. Related to Chronic hepatitis C without hepatic [...]
--- OUTSIDE RECORDS SUMMARY | 2024-02-13 20:46 | XMS_ITS | Encounter Summary ---
Author Name Unknown Organization [place] Address [address] [place] [address] Care Team Providers Care Miller Apprentice Name Role Phone Sergio Germain MD Primary Care Provider Dante Mackay PA-C Unavailable [phone] Dante Brady PA-C Unavailable [phone] Encounter Details Date Type Department Care Team (Late st Contact Info) Description 12/28/[address], [address] [place] [id number] Sergio Germain MD EMERGENCY ROOM ENCOUNTER (Primary Dx) Social History Tobacco Use Types Packs/Day Years Used Date Smoking Tobacco: Every Day Cigarettes 1.5 0 Smokeless Tobacco: Never Comments:down to 3 per day Alcohol Use Standard Drinks/Week Comments No 0 (1 standard drink = 0.6 oz pur e alcohol) Sex and Gender Information Value Date Recorded Sex Assigned at Not on file Gender Identity Not on file Sexual Orientation Not on file documented as of this encounter Progress Notes * 12/28/2002 11:59 PM [id number] 00:00 Emergency Department Encounter-[facility] HELENA BUSTOS) [Entered: 00:00 Box Printer (HIM)] MODE OF ARRIVAL: Private transportation. CHIEF COMPLAINT: Headac he. HISTORY OF PRESENT ILLNESS: Dima Shepherd is a 37 year old male who comes in complaining of a heada joanna for two days. The patient states that it is a left frontal headache. It is 8 out of 10 in sever ity. It is throbbing. Lights do bother his eyes. He denies any neck stiffness. No trauma. No fev ers or chills. The patient states he has not had this type of headache before. He does complain of some nausea. PAST MEDICAL HISTORY: Hepatitis C. CURRENT MEDICATIONS: No medications. ALLERGIES: No known allergies. SOCIAL HISTORY: He is a nondrinker. He does smoke about one pack of cigarettes a day. REVIEW OF SYSTEMS: General: No fevers or chills. Head, eyes, ears, nose and throat: Head: S ee history of present illness. Eyes: No blurred vision. Ears: No ringing in the ears. Throat: No sore throat. Respiratory: No shortness of breath. Cardiovascular: No chest pain or chest pressure. GI: See history of present illness. Neurologic: See history of present illness. All other revie w of systems are negative. PHYSICAL EXAMINATION: Vital signs: Temperature 97.8 orally, pulse 87, re spiratory rate 14 and blood pressure 119/82. Head, ears, eyes, nose and throat exam: TMs are clear. Oropharynx is moist. Neck is supple. Chest: Clear. Abdomen: Soft and nontender. Neurologic: C ranial nerves II through XII are intact. Motor strength 5 over 5 throughout in both upper and lower extremities. Reflexes are two plus throughout. DIFFERENTIAL DIAGNOSIS: Tension headache, migraine h eadache, viral meningitis and subarachnoid hemorrhage are all things to consider. EMERGENCY DEPARTMEN T COURSE: I gave him a liter of normal saline IV, Depakote 500 mg IV over 30 minutes and Zofran [address] of the head was obtained. It was negative. Labs came back. White blood cell count 9.3, hem oglobin 16.1 and platelet count 250,000. The patient then got morphine 4 mg IV times two without sig nificant relief of the headache. I felt he did need to be ruled out for subarachnoid hemorrhage. Th e consent was signed and the patient knew of the risks of fevers, infection and headache. PROCEDURE N OTE: Lumbar puncture. The patient was placed in the left lateral decubitus position with his knees flexed up into this chest. His back was prepped and draped in sterile fashion with Betadine. Using a 25 gauge needle and at the midline between the posterior superior iliac crest 1 percent lidocaine wa s used. Then using a 22 gauge needle another 2 cc of 1 percent lidocaine were used and using a 22.5 gauge spinal needle 4 cc of clear CSF fluid was removed. No complications. The patient was then plac ed on his back. CSF results returns. Red cells 0, white cells 1, glucose [address] and protein [address] Gram [address] ain was negative. At this time the patient got 25 mg Demerol IV for his headache. He said the headac he was now improving. IMPRESSION: Headache, unclear etiology. PLAN: 1. See primary medical doctor a s soon as possible. 2. Advil 800 mg p.o. t.i.d. 3. Vicodin one to two p.o. q 6 hours, 20 dispensed. 4. Copies of labs and CT report with the patient. HELENA BUSTOS MD T: 003 08:35 MT: Document: [id number] [place], [place] Name: DIMA SHEPHERD EMERGENCY ROOM ENCOUNTER Page 2 of 2 LCN: ER DSC: 12/28/2002 [place], [place] Name: DIMA SHEPHERD MR#: : Admit Date: -40 1965 12/28/2002 Doctor: HELENA BUSTOS MD EMERGENCY ROOM ENCOUNTER Page 1 of 2 Electronically filed by Bang Katz 01/04/2003 5:36 PM documented in this encounter Plan of Treatment Not on file documented as of this encounter Visit Diagnoses Diagnosis EMERGENCY ROOM ENCOUNTER- Primary documented in this encounter Care Teams Miller Apprentice Relationship Specialty Start Date End Date Sergio Germain MD PCP - General 12/23/01 Dante Brady PA-C [address] [place] [address] [place] [address] Assigned Neuroscience Provider 01/22/21 02/15/21 Dante Brady PA-C [address] [place] [address] Assigned Sleep Provider 01/22/21 documented as of this encounter
--- OUTSIDE RECORDS SUMMARY | 2024-02-13 20:46 | XMS_ITS | Continuity of Care Document ---
Author Name Unknown Organization [facility] Address [address] [address] [place] [address] Phone Care Team Providers Care Clothing Cutter Name Role Phone Unavailable Unavailable Unavailable Allergies, [...] Encounter [facility], [address] [address], [place], [id number], [place] tel:[phone] [facility] No Information No Information [facility] [address] [address], [place], [id number], [place] tel:[phone] [facility] Chronic hepatitis C without hepatic coma 9 No Information Referring Provider: Referral Self, USE FOR SELF REFERRALS. [facility], [address] [address], [place], [place], [id number], [place] tel:[phone] [facility] No Information 8 No Information Offic/outpt E&m Estab Mod-hi 2 [facility], [address] [address], [place], [place], [id number], [place] tel:[phone] [facility] GI Symptoms or Concerns (chief complaint) Chronic hepatitis C without hepatic comaDietary counseling and surveillanceEl evated blood-pressure reading, w/o diagnosis of htn 8 No Information Referring Provider: Referral Self, USE FOR SELF REFERRALS. [facility], [address] [address], [place], [place], [id number], [place] tel:[phone] [facility] Sessile colonic polypDiverticu losis of colon without diverticulitis Encounter for screening for malignant neoplasm of colonBenign neoplasm of ascending colon 8 Servando Wallace. [address] [facility], [facility] [address], [place], [place], [id number], [place]. tel:[phone] Referring Provider: Chet Block MD, [address] [place], [address]. tel:[phone] Family History Family Member Type Diagnosis Age [...] receive the medication DO NOT start. Call [phone], opt [phone], ext [phone] - Csf. Related to Chronic hepatitis C without hepatic [...]
[2024-02-13 20:56] LABS: Basophils Absolute Auto 0.04 K/uL (0.00-0.30); Basophils Percent Auto 0.5 % (0.0-3.0); Eosinophils Absolute Auto 0.59 K/uL (0.00-0.50); Eosinophils Percent Auto 6.7 % (0.0-7.0); Hematocrit 44.9 % (37.0-53.0); Immature Granulocytes Abs Auto 0.01 K/uL (0.00-0.30); Immature Granulocytes Pct Auto 0.1 %; Lymphocytes Absolute Auto 2.52 K/uL (0.90-2.90); Lymphocytes Percent Auto 28.5 % (20-44); Mean Corpuscular HGB Conc 33 gm/dL (32-36); Mean Corpuscular Hemoglobin 29 pg (26-34); Mean Corpuscular Volume 86 fL (80-100); Monocytes Percent Auto 9.6 % (0.0-11.0); Neutrophils Absolute Auto 4.83 K/uL (1.7-7.0); Neutrophils Percent Auto 54.6 % (42.0-72.0); Platelet Count* 224 K/uL (140-440); RDW Coefficient of Variation % 12.8 % (11.5-15.5); White Blood Count* 8.84 K/uL (4.50-11.00)
[2024-02-13 21:00] LABS: Appearance Urine Clear (Clear); Bilirubin Urine Negative (Negative); Blood Urine Negative (Negative); Color Urine Yellow (Yellow); Glucose Urine Negative (Negative); Ketones Urine Negative (Negative); Leukocyte Esterase Urine Negative (Negative); Nitrite Urine Negative (Negative); Protein Urine Negative (Negative); Specific Gravity Urine 1.025 (1.000-1.030); Urobilinogen Urine 0.2 (0.2-1.0)
[2024-02-13 21:01] LABS: Slide Review Reflex No
[2024-02-13 21:10] LABS: Albumin* 4.3 g/dL (3.3-5.0); Chloride* 107 mmol/L (96-114)
[2024-02-13 21:11] LABS: Potassium* 4.2 mmol/L (3.6-5.1); Sodium* 139 mmol/L (135-149)
[2024-02-13 21:11] LABS: RBC Urine 0-2 (0-2); WBC Urine 0-2 (0-5)
[2024-02-13 21:13] LABS: Bilirubin Total* 0.4 mg/dL (0.1-1.5); Creatinine* 0.8 mg/dL (0.5-1.5); Est. Creatinine Clearance* 97.38; Estimated Glomerular Filt Rate 103 ml/min
[2024-02-13 21:14] LABS: Alanine Aminotransferase* 21 U/L (4-50); Alkaline Phosphatase* 74 U/L (40-150); Anion Gap 7 mEq/L (7-15); Aspartate Amino Transferase* 24 U/L (12-35); Blood Urea Nitrogen* 19 mg/dL (7-30); Carbon Dioxide* 25 mmol/L (20-32); Creatine Kinase* 141 U/L (54-186); Glucose* 91 mg/dL (60-115); Total Protein* 7.2 g/dL (6.0-8.3)
[2024-02-13 21:15] LABS: Calcium* 9.6 mg/dL (8.4-10.6)
[2024-02-13 21:17] LABS: C Reactive Protein* < 0.5 mg/dL (0.5-1.0)
[2024-02-13 21:40] LABS: Erythrocyte SedimentationRate* 2 mm/hr (2-15)
[2024-02-13] MEDS: predniSONE 20 MG TABLET 60 MG PO (22:24)
[2024-02-13] MEDS: diphenhydrAMINE 25 MG CAPSULE 50 MG PO (22:24)
[2024-02-13 22:31] VITALS: BP 126/80; PULSE 72; RESP 18; TEMP 36.8
== END 2024-02-13 22:32 | disposition home or self-care (01) ==
PROVIDERS: Family Medicine; Emergency Provider Emergency Medicine; PCP Family Medicine
DX: R21 Rash and other nonspecific skin eruption (principal); T46.6X5A Adverse effect of antihyperlipidemic and antiarteriosclerotic drugs, initial encounter
CPT/HCPCS: 36415; 80053; 81001; 82550; 85025; 85651; 86140; 87070; 87186; 99283; 99284; A9270; J7512

== ENCOUNTER 2024-02-26 16:24 | Emergency (ER) | payer MEDICAID, SELFPAY ==
[2024-02-26 16:30] VITALS: BP 147/82; PULSE 86; RESP 18; TEMP 37.3; O2SAT 96; BMI 30.4
--- NOTE | 2024-02-26 16:52 | ED_ITS ---
HPI - General Adult General Chief complaint: Skin/Abscess/Foreign Body Stated complaint: Swelling in legs, rash across limbs Time Seen by Provider: 02/26/24 16:29 History of Present Illness HPI narrative: This 58-year-old male comes in again after persistent rash that is pruritic. He was seen about a week ago with similar symptoms that have worsened since then. He had labs done and there was no results that clearly identified what was causing these symptoms. He had recently started Crestor so this medicine was discontinued however that is not made any difference for him. He finished taking prednisone and states that it may have helped some but comes in today stating that the rash has spread through all the limbs of his body and up on his face and some on his back. He has some significant edema in his left lower extremity. He does not report any fevers. 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 Related Data Previous Rx's Medication Instructions Recorded ibuprofen 800 mg tablet 800 mg PO TID PRN pain #60 tabs 04/07/23 amoxicillin 500 mg capsule 1,000 mg (2 x 500 mg) PO BID #28 01/19/24 caps albuterol sulfate 90 mcg/actuation 1 inh inhalation QID PRN shortness 01/28/24 aerosol inhaler of breath or wheezing #8.5 grams rosuvastatin 5 mg tablet 5 mg PO QDAY #90 tabs 01/28/24 diphenhydramine HCl 25 mg capsule 25 - 50 mg (1 - 2 x 25 mg) PO TID 02/13/24 (Benadryl) PRN #20 caps prednisone 20 mg tablet 60 mg (3 x 20 mg) PO DAILY 7 days 02/13/24 #21 tabs cephalexin 500 mg capsule 500 mg PO TID 7 days #21 caps 02/26/24 prednisone 20 mg tablet 20 mg PO BID #14 tabs 02/26/24 Allergies Allergy/AdvReac Type Severity Reaction Status Date / Time acetaminophen [From Percocet] Allergy Unknown Verified 01/28/24 09:04 oxycodone [From Percocet] Allergy Unknown Verified 01/28/24 09:04 hydrocodone Allergy Verified 01/28/24 09:04 Review of Systems Status of ROS: Reports: 10 or more systems reviewed and unremarkable except as noted in History and below Narrative: Constitutional: No fevers, no weight gain or loss. Eyes: No discharge. No vision changes. HENT: No congestion, no sore throat, no ear pain. Cardiovascular: No chest pain, no palpitations. Respiratory: No shortness of breath, no wheezes, no cough. Gastrointestinal: No abdominal pain, no vomiting, no diarrhea. Genitourinary: No dysuria, no hematuria. Musculoskeletal: Normal range of motion. Skin: Pruritic rash. Neurological: No dizziness, weakness, sensory change, speech change. Endo/Heme/Allergies: No bruising or bleeding. No polydipsia. Pysch: no suicidality, no anxiety, no insomnia. All other systems reviewed and are negative. PFSH PFS Medical History RLL pneumonia ?J18.9 - Pneumonia, unspecified organism (ICD-10) Surgical History Status post lumbar spinal fusion ?Z98.1 - Arthrodesis status (ICD-10) History of appendectomy ?Z90.49 - Acquired absence of other specified parts of digestive tract (ICD- 10) Family History Father No problems noted. 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 Smoking Status: Former smoker What tobacco products do you use: cigarettes Smoking quit date/years: <= 15 years ago Do you use any of these nicotine containing products: None Second hand tobacco smoke exposure: No How often do you have a drink containing alcohol: never How often do you have six or more drinks on one occasion: Never AUDIT-C Alcohol total score: 0 Non-prescribed substance use: denies use Little interest or pleasure in doing things: not at all Feeling down, depressed, or hopeless: not at all service: No Exam Narrative: Exam Narrative: Constitutional: Well-developed, well-nourished, no acute distress. HEENT: Normocephalic, atraumatic. Neck: Normal range of motion. Nontender. Supple. Heart: Intact distal pulses. Lungs: No chest discomfort. No wheezes, rhonchi, or rales. Abdomen: Nontender. Back: Normal range of motion. Extremities: Normal range of motion. No injury. Skin: Generalized rash which is pruritic with associated dry skin. Right lower extremity has increased edema. Neurologic: No altered sensation. No weakness. Alert and oriented. Psychiatric: No suicidality. No anxiety or depression. No insomnia. Nursing notes and vitals signs are reviewed. Const: Vital Signs, click to edit/add: Vital Signs - 24 hr 02/26/24 16:30 Temperature 99.2 F Pulse Rate [Pulse Oximeter] 86 Respiratory Rate 18 Blood Pressure [Ri ght Upper Arm] 147/82 H Pulse Oximetry 96 Oxygen Delivery Me thod Room Air Course Vital Signs Vital signs: Initial Vital Signs Temperature 99.2 F 02/26/24 16:30 Temperature Source Temporal Artery Scan 02/26/24 16:30 Pulse Rate 86 02/26/24 16:30 Respiratory Rate 18 02/26/24 16:30 Blood Pressure 147/82 H 02/26/24 16:30 Blood Pressure Mean 103 02/26/24 16:30 Pulse Oximetry 96 02/26/24 16:30 Oxygen Delivery Method Room Air 02/26/24 16:30 Vital Signs Temperature 99.2 F 02/26/24 16:30 Pulse Rate 86 02/26/24 16:30 Respiratory Rate 18 02/26/24 16:30 Blood Pressure 147/82 H 02/26/24 16:30 Pulse Oximetry 96 02/26/24 16:30 Oxygen Delivery Method Room Air 02/26/24 16:30 Temperature 99.2 F 02/26/24 16:30 Pulse Rate 86 02/26/24 16:30 Respiratory Rate 18 02/26/24 16:30 Blood Pressure 147/82 H 02/26/24 16:30 Pulse Oximetry 96 02/26/24 16:30 Oxygen Delivery Method Room Air 02/26/24 16:30 Medical Decision Making MDM Narrative Medical decision making narrative: This patient comes in with persistent rash which is spread more areas of his body. There are no clear indicators what is causing the rash. The distribution is more generalized and does not give us a clue what he might be getting exposed to. I did review his labs that were obtained last week and spoke with 1 of the physicians who saw him last week as he is working with me today. The patient has discontinued Crestor however this does not seem to be the trigger for his allergy symptoms. I did discuss rechecking labs but the patient declined this for now. I did prescribe prednisone again along with Keflex as there is some risk for infection. I instructed the patient to use Yane and Amlactin for [id number] symptomatic relief. I also described signs and symptoms that indicate a need for return and re-evaluation including simply not getting better. A sampler first or casing cooker could provide more insight of course. Discharge Plan Discharge Clinical Impression: Allergic reaction Patient Disposition: Home, Self-Care Additional Instructions: Take medication as prescribed. Use Yane a also as directed. For skin moist arising use Amlactin. Follow up with MD or return if symptoms are persistent or worsening. Prescriptions: New cephalexin 500 mg capsule 500 mg PO TID 7 Days Qty: 21 0RF prednisone 20 mg tablet 20 mg PO BID Qty: 14 0RF No Action rosuvastatin 5 mg tablet 5 mg PO QDAY Qty: 90 3RF albuterol sulfate 90 mcg/actuation HFA aerosol inhaler 1 inh inhalation QID PRN (Reason: shortness of breath or wheezing) Qty: 8.5 2RF amoxicillin 500 mg capsule 1,000 mg PO BID Qty: 28 0RF prednisone 20 mg tablet 60 mg PO DAILY 7 Days Qty: 21 0RF diphenhydramine HCl [Benadryl] 25 mg capsule 25 - 50 mg PO TID PRNQty: 20 0RF ibuprofen 800 mg tablet 800 mg PO TID PRN (Reason: pain) Qty: 60 2RF Follow Up/Referrals: Ananda Richardson MD [Primary Care Provider] - Stand Alone Forms: [employer] Info Instructions
--- OUTSIDE RECORDS SUMMARY | 2024-02-26 17:06 | XMS_ITS | Referral Summary ---
Author Name Unknown Organization [facility] Address [address] [place] [address] Care Team Providers Care Scullion Chief Name Role Phone Sergio Germain MD Primary [...] MG tablet Take 100 mg by mouth 02/15/2018 Acti ve Active Problems Problem Noted [...] Used Date Smoking Tobacco: Every Day Cigarettes 0 Smokeless Tobacco: Never Tobacco Cessation:Ready to [...] of Treatment Not on file Care Teams Scullion Chief Relationship Specialty Start Date End Date Sergio Germain MD PCP - General 12/23/01
--- OUTSIDE RECORDS SUMMARY | 2024-02-26 17:06 | XMS_ITS | Continuity of Care Document ---
Author Name Unknown Organization [facility] Address [address] [address] [place] [address] Phone Care Team Providers Care Piano Teacher Name Role Phone Unavailable Unavailable Unavailable Allergies, [...] Encounter [facility], [address] [address], [place], [id number], [place] tel:[phone] [facility] No Information No Information [facility] [address] [address], [place], [id number], [place] tel:[phone] [facility] Chronic hepatitis C without hepatic coma 9 No Information Referring Provider: Referral Self, USE FOR SELF REFERRALS. [facility], [address] [address], [place], [place], [id number], [place] tel:[phone] [facility] No Information 8 No Information Offic/outpt E&m Estab Mod-hi 2 [facility], [address] [address], [place], [place], [id number], [place] tel:[phone] [facility] GI Symptoms or Concerns (chief complaint) Chronic hepatitis C without hepatic comaDietary counseling and surveillanceEl evated blood-pressure reading, w/o diagnosis of htn 8 No Information Referring Provider: Referral Self, USE FOR SELF REFERRALS. [facility], [address] [address], [place], [place], [id number], [place] tel:[phone] [facility] Sessile colonic polypDiverticu losis of colon without diverticulitis Encounter for screening for malignant neoplasm of colonBenign neoplasm of ascending colon 8 Servando Wallace. [address] [facility], [facility] [address], [place], [place], [address], [place]. tel:[phone] Referring Provider: Chet Block MD, [address] [place], [address]. tel:[phone] Family History Family Member Type Diagnosis Age At Onset Mother Problem (finding) Alive and well Father Problem (finding) Father Problem (finding) malignant neoplasm of l chucho Immunizations Vaccine Date Status Comments Influenza, injectable, MDCK, preservative free Flucelvax Quad Y administered Source: Other Provid er Payers Payer name Insurance type Covered green party ID Authoriza tion(s) No Information Social [...] receive the medication DO NOT start. Call [phone], opt 8, ext [phone] - Kty. Related to Chronic hepatitis C without hepatic [...]
--- OUTSIDE RECORDS SUMMARY | 2024-02-26 17:06 | XMS_ITS | Clinical Summary ---
Author Name Unknown Organization [facility] Address [address] [place] [address] Care Team Providers Care Lead Systems Developer Name Role Phone Sergio Germain MD Primary [...] of Treatment Not on file Care Teams Lead Systems Developer Relationship Specialty Start Date End Date Sergio Germain MD PCP - General 12/23/01
--- OUTSIDE RECORDS SUMMARY | 2024-02-26 17:06 | XMS_ITS | Encounter Summary ---
Author Name Unknown Organization [facility] Address [address] [place] [address] Care Team Providers Care Gas Pumping Station Helper Name Role Phone Sergio Germain MD Primary Care Provider Unav ailable Dante Brady PA-C Unavailable [phone] Dante Brady PA-C Unavailable [phone] Reason for Visit * Reason Comments Sleep Problem Encounter Details Date Type Department Care Team (Late st Contact Info) Description 02/18/2018 [facility] [place] [address] [facility] [address] [place] [phone] Gio Klein MD [address] [place] [address] Social History Tobacco Use Types Packs/Day Years Used Date Smoking Tobacco: Every Day Cigarettes 0 Alcohol Use Standard Drinks/Week Comments No [...] on filedocumented in this encounter Care Teams Gas Pumping Station Helper Relationship Specialty Start Date End Date Sergio Germain MD PCP - General 12/23/01 Dante Brady PA-C [address] [place] [id number] Assigned Neuroscience Provider 01/22/21 02/15/21 Dante Brady PA-C [address] [place] [address] Assigned Sleep Provider 01/22/21 documented as of this encounter
--- OUTSIDE RECORDS SUMMARY | 2024-02-26 17:07 | XMS_ITS | Encounter Summary ---
Author Name Unknown Organization [facility] Address [address] [facility] [place] [address] Care Team Providers Care Mail Carrier Technician Name Role Phone Sergio Germain MD Primary Care Provider Dante Mackay PA-C Unavailable [phone] Dante Brady PA-C Unavailable [phone] Encounter Details Date Type Department Care Team (Late st Contact Info) Description 12/28/[address], [address] [place] [phone] Sergio Germain MD EMERGENCY ROOM ENCOUNTER (Primary Dx) Social History Tobacco Use Types Packs/Day Years Used Date Smoking Tobacco: Every Day Cigarettes 0 Smokeless Tobacco: Never Comments:down to 3 per day Alcohol Use Standard Drinks/Week Comments No 0 (1 standard drink = 0.6 oz pur e alcohol) Sex and Gender Information Value Date Recorded Sex Assigned at Not on file Gender Identity Not on file Sexual Orientation Not on file documented as of this encounter Progress Notes * 12/28/2002 11:59 PM [id number] 00:00 Emergency Department Encounter-[facility] HELENA BUSTOS) [Entered: 00:00 Rn Iv Therapy (HIM)] MODE OF ARRIVAL: Private transportation. CHIEF [...] BUSTOS MD T: 003 08:35 MT: Document: [id number] [place], [place] Name: DIMA SHEPHERD EMERGENCY ROOM ENCOUNTER Page 2 of 2 LCN: ER DSC: 12/28/2002 [place], [place] Name: DIMA SHEPHERD MR#: : Admit Date: -40 1965 12/28/2002 Doctor: HELENA BUSTOS MD EMERGENCY ROOM ENCOUNTER Page 1 of 2 Electronically filed by Bang Katz 01/04/2003 5:36 PM documented in this encounter Plan of Treatment Not on file documented as of this encounter Visit Diagnoses Diagnosis EMERGENCY ROOM ENCOUNTER- Primary documented in this encounter Care Teams Mail Carrier Technician Relationship Specialty Start Date End Date Sergio Germain MD PCP - General 12/23/01 Dante Brady PA-C [address] [place] [address] Assigned Neuroscience Provider 01/22/21 02/15/21 Dante Brady PA-C [address] [place] [address] Assigned Sleep Provider 01/22/21 documented as of this encounter
--- OUTSIDE RECORDS SUMMARY | 2024-02-26 17:07 | XMS_ITS | Continuity of Care Document ---
Author Name Unknown Organization [facility] Address [address] [address] [place] [address] Phone Care Team Providers Care Forming Machine Operator Name Role Phone Unavailable Unavailable Unavailable Allergies, [...] Encounter [facility], [address] [address], [place], [id number], [place] tel:[phone] [facility] No Information No Information [facility] [address] [address], [place], [id number], [place] tel:[phone] [facility] Chronic hepatitis C without hepatic coma 9 No Information Referring Provider: Referral Self, USE FOR SELF REFERRALS. [facility], [address] [address], [place], [place], [address], [place] tel:[phone] [facility] No Information 8 No Information Offic/outpt E&m Estab Mod-hi [address] [facility], [address] [address], [place], [place], [address], [place] tel:[phone] [facility] GI Symptoms or Concerns (chief complaint) Chronic hepatitis C without hepatic comaDietary counseling and surveillanceEl evated blood-pressure reading, w/o diagnosis of htn 8 No Information Referring Provider: Referral Self, USE FOR SELF REFERRALS. [facility], [address] [address], [place], [place], [id number], [place] tel:[phone] [facility] Sessile colonic polypDiverticu losis of colon without diverticulitis Encounter for screening for malignant neoplasm of colonBenign neoplasm of ascending colon 8 Servando Wallace. [address] [facility], [facility] [address], [place], [place], [id number], [place]. tel:[phone] Referring Provider: Chet Block MD, [address] [place], [address]. tel:[phone] Family History Family Member Type Diagnosis Age [...] receive the medication DO NOT start. Call [phone], opt [phone], ext [phone] - Zzv. Related to Chronic hepatitis C without hepatic [...]
--- OUTSIDE RECORDS SUMMARY | 2024-02-26 17:07 | XMS_ITS | Clinical Summary ---
Author Name Unknown Organization [facility] Address [place], [place] [address] Care Team Providers Care Heading Machine Operator Name Role Phone Sarahi Quigley DDTiti Primary [...] - 199 mg/dL 02/21/2019 2:09 PM CDT [facility] LABORATORY-[facility] TRAL LABORATORY TRIGLYCERIDES 102 <150 mg/dL 02/21/2019 2:09 PM CDT [facility] TRAL LABORATORY HDL CHOLESTEROL 30(L) >40 mg/dL 9 2:09 PM CDT [facility] TRAL LABORATORY NON-HDL CHOLESTEROL 170(H) <145 mg/dl 02/21/2019 2:09 PM CDT [facility] TRAL LABORATORY CHOL/HDL RATIO 6.67(H) <4.50 02/21/2019 2:09 PM CDT [facility] LABORATORY-[facility] TRAL LABORATORY LDL CHOLESTEROL 150(H) <=130 mg/dL 02/21/2019 2:09 PM CDT [facility] TRAL LABORATORY PROVIDER ORDERED STATUS FASTING 02/21/2019 2:09 PM CDT [facility] TRAL LABORATORY Blood BLOOD SPECIMEN / Unknown Venipuncture / Unknown 02/21/2019 8:23 AM CDT 02/21/2019 8:23 AM CDT [facility] [place] CHEMISTRY [facility] LABORATORY-CENTRAL LABORATORY [address] [place] [address], [place] * SCAN-COLONOSCOPY (03/14/2018 3:00 PM CDT) Narrative Procedure Note Loco Al DO - 03/14/2018 2:01 PM CDT [facility] [address] [facility], [address], [place] [address] Patient Name: Juno Cunha Gender: Male Exam Date: 03/14/2018 Visit Number: [id number] Age: 52 Years Date of : 1965 Attending MD: Loco Al DO Medical Record#: [id number] ----- Procedure: Colonoscopy Indications: Colorectal cancer screening [...] _Electronically signed by: Loco Al DO 03/14/2018 Loco Al DO OTHER from Last 3 Months or Most Recently Relevant to Health Maintenance Care Teams Heading Machine Operator Relationship Specialty Start Date End Date Sarahi Quigley DDS [address] [place] [address] PCP - General Dentistry - General 02/15/18
== END 2024-02-26 17:15 | disposition home or self-care (01) ==
LOC: ED 17:05
PROVIDERS: Emergency Provider Emergency Medicine Emergency Medical Services; PCP Family Medicine
DX: T78.40XA Allergy, unspecified, initial encounter (principal); R21 Rash and other nonspecific skin eruption
CPT/HCPCS: 99283; 99284

== ENCOUNTER 2024-03-13 07:37 | Emergency (ER) | payer MEDICAID, SELFPAY ==
[2024-03-13 07:39] VITALS: BP 135/81; PULSE 69; RESP 18; TEMP 36.2; O2SAT 97; BMI 30.4
--- OUTSIDE RECORDS SUMMARY | 2024-03-13 07:41 | XMS_ITS | Encounter Summary ---
Author Name Unknown Organization [facility] Address [address] [place] [address] Care Team Providers Care Bi Developer Name Role Phone Sergio Germain MD Primary Care Provider Unav ailable Dante Brady PA-C Unavailable [phone] Dante Brady PA-C Unavailable [phone] Reason for Visit * Reason Comments Sleep Problem Encounter Details Date Type Department Care Team (Late st Contact Info) Description 02/18/2018 [facility] [place] [address] [facility] [address] [place] [phone] Gio Klein MD [address] [place] [id number] Social History Tobacco Use Types Packs/Day Years [...] on filedocumented in this encounter Care Teams Bi Developer Relationship Specialty Start Date End Date Sergio Germain MD PCP - General 12/23/01 Dante Brady PA-C [address] [place] [phone] Assigned Neuroscience Provider 01/22/21 02/15/21 Dante Brady PA-C [address] [place] [address] Assigned Sleep Provider 01/22/21 documented as of this encounter
--- OUTSIDE RECORDS SUMMARY | 2024-03-13 07:41 | XMS_ITS | Clinical Summary ---
Author Name Unknown Organization [facility] Address [address] [place] [address] Care Team Providers Care Legal Service Specialist Name Role Phone Sergio Germain MD Primary [...] of Treatment Not on file Care Teams Legal Service Specialist Relationship Specialty Start Date End Date Sergio Germain MD PCP - General 12/23/01
--- OUTSIDE RECORDS SUMMARY | 2024-03-13 07:41 | XMS_ITS | Encounter Summary ---
Author Name Unknown Organization [facility] Address [address] [facility] [place] [address] Care Team Providers Care Concrete Saw Operator Name Role Phone Sergio Germain MD Primary Care Provider Dante Mackay PA-C Unavailable [phone] Dante Brady PA-C Unavailable [phone] Encounter Details Date Type Department Care Team (Late st Contact Info) Description 12/28/[address], [address] [place] [address] Sergio Germain MD EMERGENCY ROOM ENCOUNTER (Primary [...] encounter Progress Notes * 12/28/2002 11:59 PM [id number] 00:00 Emergency Department Encounter-[facility] HELENA BUSTOS) [Entered: 00:00 Gas Charger (HIM)] MODE OF ARRIVAL: Private transportation. CHIEF [...] BUSTOS MD T: 003 08:35 MT: Document: [id number] [place], [place] Name: DIMA SHEPHERD EMERGENCY ROOM ENCOUNTER Page 2 of 2 LCN: ER DSC: 12/28/2002 [place], [place] Name: DIMA SHEPHERD MR#: : Admit Date: 7083-02-09-40 1965 12/28/2002 Doctor: HELENA BUSTOS MD EMERGENCY ROOM ENCOUNTER Page 1 of 2 Electronically filed by Bang Katz 01/04/2003 5:36 PM documented in this encounter Plan of Treatment Not on file documented as of this encounter Visit Diagnoses Diagnosis EMERGENCY ROOM ENCOUNTER- Primary documented in this encounter Care Teams Concrete Saw Operator Relationship Specialty Start Date End Date Sergio Germain MD PCP - General 12/23/01 Dante Brady PA-C [address] [place] [address] Assigned Neuroscience Provider 01/22/21 02/15/21 Dante Brady PA-C [address] [place] [address] Assigned Sleep Provider 01/22/21 documented as of this encounter
--- OUTSIDE RECORDS SUMMARY | 2024-03-13 07:41 | XMS_ITS | Referral Summary ---
Author Name Unknown Organization [facility] Address [address] [place] [address] Care Team Providers Care Special Education Associate Name Role Phone Sergio Germain MD Primary [...] of Treatment Not on file Care Teams Special Education Associate Relationship Specialty Start Date End Date Sergio Germain MD PCP - General 12/23/01
--- OUTSIDE RECORDS SUMMARY | 2024-03-13 07:42 | XMS_ITS | Clinical Summary ---
Author Name Unknown Organization [facility] Address [place], [place] [address] Care Team Providers Care Red Cross Worker Name Role Phone Sarahi Quigley DDTiti Primary [...] - 199 mg/dL 02/21/2019 2:09 PM CDT [facility] [employer] LABORATORY-[facility] TRAL LABORATORY TRIGLYCERIDES 102 <150 mg/dL 02/21/2019 2:09 PM CDT [facility] TRAL LABORATORY HDL CHOLESTEROL 30(L) >40 mg/dL 9 2:09 PM CDT [facility] TRAL LABORATORY NON-HDL CHOLESTEROL 170(H) <145 mg/dl 02/21/2019 2:09 PM CDT [facility] TRAL LABORATORY CHOL/HDL RATIO 6.67(H) <4.50 02/21/2019 2:09 PM CDT [facility] LABORATORY-[facility] TRAL LABORATORY LDL CHOLESTEROL 150(H) <=130 mg/dL 02/21/2019 2:09 PM CDT [facility] TRAL LABORATORY PROVIDER ORDERED STATUS FASTING 02/21/2019 2:09 PM CDT [facility] TRAL LABORATORY Blood BLOOD SPECIMEN / Unknown Venipuncture / Unknown 02/21/2019 8:23 AM CDT 02/21/2019 8:23 AM CDT Chet [place] CHEMISTRY [facility] LABORATORY-CENTRAL LABORATORY [address] [place] [address], [place] * SCAN-COLONOSCOPY (03/14/2018 3:00 PM CDT) Narrative Procedure Note Loco Al, DO - 03/14/2018 2:01 PM CDTThis note has been archived and cannot be retrieved at this time. Loco Al DO OTHER from Last 3 Months or Most Recently Relevant to Health Maintenance Care Teams Red Cross Worker Relationship Specialty Start Date End Date Sarahi Quigley DDS [address] [place] [address] PCP - General Dentistry - General 02/15/18
--- NOTE | 2024-03-13 08:56 | ED_ITS ---
HPI - Allergic Reaction General Chief complaint: Allergic Reaction Stated complaint: allergic reaction Time Seen by Provider: 03/13/24 07:48 History of Present Illness HPI narrative: This 58-year-old male makes his 3rd visit in the last month to the emergency department because of pruritus and erythema on his 4 extremities. His trunk and head are spared. He did have labs done at his 1st visit and these returned with normal results. I saw him in his 2nd visit and did prescribe an oral steroid and recommended a moist arising cream. He also had some suspicion of a cellulitis as he was scratching vigorously and causing injury to his skin. He finished a course of Keflex and Medrol Dosepak and states that nothing is improved. He does have a new job since the past 4 5 months and has been trying to think of what may have been causing some allergic reaction. He did discontinue his Crestor a month ago but it seems that it is unlikely related to medication or something he is ingesting because it is occurring only on his extremities. Related Data Previous Rx's Medication Instructions Recorded ibuprofen 800 mg tablet 800 mg PO TID PRN pain #60 tabs 04/07/23 amoxicillin 500 mg capsule 1,000 mg (2 x 500 mg) PO BID #28 01/19/24 caps albuterol sulfate 90 mcg/actuation 1 inh inhalation QID PRN shortness 01/28/24 aerosol inhaler of breath or wheezing #8.5 grams rosuvastatin 5 mg tablet 5 mg PO QDAY #90 tabs 01/28/24 diphenhydramine HCl 25 mg capsule 25 - 50 mg (1 - 2 x 25 mg) PO TID 02/13/24 (Benadryl) PRN #20 caps prednisone 20 mg tablet 60 mg (3 x 20 mg) PO DAILY 7 days 02/13/24 #21 tabs cephalexin 500 mg capsule 500 mg PO TID 7 days #21 caps 02/26/24 prednisone 20 mg tablet 20 mg PO BID #14 tabs 02/26/24 prednisone 10 mg tablets in a dose See Rx Instructions PO .COMPLEX 03/13/24 pack #21 ea triamcinolone acetonide 0.1 % 1 applic topical BID #453.6 grams 03/13/24 topical cream Allergies Allergy/AdvReac Type Severity Reaction Status Date / Time acetaminophen [From Percocet] Allergy Unknown Verified 01/28/24 09:04 oxycodone [From Percocet] Allergy Unknown Verified 01/28/24 09:04 hydrocodone Allergy Verified 01/28/24 09:04 Review of Systems Status of ROS Reports: 10 or more systems reviewed and unremarkable except as noted in History and below Narrative Constitutional: No fevers, no weight gain or loss. Eyes: No discharge. No vision changes. HENT: No congestion, no sore throat, no ear pain. Cardiovascular: No chest pain, no palpitations. Respiratory: No shortness of breath, no wheezes, no cough. Gastrointestinal: No abdominal pain, no vomiting, no diarrhea. Genitourinary: No dysuria, no hematuria. Musculoskeletal: Normal range of motion. Skin: Generalized erythema with pruritus on all 4 extremities. Neurological: No dizziness, weakness, sensory change, speech change. Endo/Heme/Allergies: No bruising or bleeding. No polydipsia. Pysch: no suicidality, no anxiety, no insomnia. All other systems reviewed and are negative. [facility] Medical History RLL pneumonia ?J18.9 - Pneumonia, unspecified organism (ICD-10) Surgical History Status post lumbar spinal fusion ?Z98.1 - Arthrodesis status (ICD-10) History of appendectomy ?Z90.49 - Acquired absence of other specified parts of digestive tract (ICD- 10) Family History Father No problems noted. 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 Smoking Status: Former smoker What tobacco products do you use: cigarettes Smoking quit date/years: <= 15 years ago Do you use any of these nicotine containing products: None Second hand tobacco smoke exposure: No How often do you have a drink containing alcohol: never How often do you have six or more drinks on one occasion: Never AUDIT-C Alcohol total score: 0 Non-prescribed substance use: denies use Little interest or pleasure in doing things: not at all Feeling down, depressed, or hopeless: not at all service: No Exam Narrative: Exam Narrative: Constitutional: Well-developed, well-nourished, no acute distress. HEENT: Normocephalic, atraumatic. Neck: Normal range of motion. Nontender. Supple. Heart: Intact distal pulses. Lungs: No chest discomfort. No wheezes, rhonchi, or rales. Abdomen: Nontender. Back: Normal range of motion. Extremities: Normal range of motion. No injury. Skin: Generalized erythema on both arms and legs but the trunk and pelvis and head are spared. He has some excoriations that are superficial from itching and scratching. Neurologic: No altered sensation. No weakness. Alert and oriented. Psychiatric: No suicidality. No anxiety or depression. No insomnia. Nursing notes and vitals signs are reviewed. Const: Vital Signs, click to edit/add: Vital Signs - 24 hr 03/13/24 07:39 Temperature 97.1 F L Pulse Rate [Right Pulse Oximeter] 69 Respiratory Rate 18 Blood Pressure [Ri ght Upper Arm] 135/81 Pulse Oximetry 97 Oxygen Delivery Me thod Room Air Course Vital Signs Vital signs: Initial Vital Signs Temperature 97.1 F L 03/13/24 07:39 Temperature Source Temporal Artery Scan 03/13/24 07:39 Pulse Rate 69 03/13/24 07:39 Respiratory Rate 18 03/13/24 07:39 Blood Pressure 135/81 03/13/24 07:39 Blood Pressure Mean 99 03/13/24 07:39 Blood Pressure Position Sitting 03/13/24 07:39 Pulse Oximetry 97 03/13/24 07:39 Oxygen Delivery Method Room Air 03/13/24 07:39 Vital Signs Temperature 97.1 F L 03/13/24 07:39 Pulse Rate 69 03/13/24 07:39 Respiratory Rate 18 03/13/24 07:39 Blood Pressure 135/81 03/13/24 07:39 Pulse Oximetry 97 03/13/24 07:39 Oxygen Delivery Method Room Air 03/13/24 07:39 Temperature 97.1 F L 03/13/24 07:39 Pulse Rate 69 03/13/24 07:39 Respiratory Rate 18 03/13/24 07:39 Blood Pressure 135/81 03/13/24 07:39 Pulse Oximetry 97 03/13/24 07:39 Oxygen Delivery Method Room Air 03/13/24 07:39 MDM - Allergic Reaction MDM Narrative Medical decision making narrative: This patient has persistent dermatitis in the upper and lower extremities over the past month. The cause is unknown however he did start a new job several months ago. 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 It appears to be a contact dermatitis as it is only affecting his extremities. IA again advised him to follow-up with a steam box hand if possible. I did provide repeat prescription for steroid. This time I prescribed prednisone and a topical steroid, triamcinolone cream. I did review his labs that were drawn about a month ago and offered to repeat this but indicated that it is often a mystery as to what is causing this kind of reaction. Clearly he has some compromise of his skin on his extremities. The patient is agreeable to this plan. Discharge Plan Discharge Additional Instructions: Take medications as prescribed. Follow up with primary physician or if possible steam box hand for ongoing diagnosis and management. Prescriptions: New prednisone 10 mg tablets,dose pack See Rx Instructions PO .COMPLEX Qty: 21 0RF Rx Instructions: orally per package directions triamcinolone acetonide 0.1 % cream 1 applic topical BID Qty: 453.6 0RF No Action rosuvastatin 5 mg tablet 5 mg PO QDAY Qty: 90 3RF albuterol sulfate 90 mcg/actuation HFA aerosol inhaler 1 inh inhalation QID PRN (Reason: shortness of breath or wheezing) Qty: 8.5 2RF amoxicillin 500 mg capsule 1,000 mg PO BID Qty: 28 0RF prednisone 20 mg tablet 60 mg PO DAILY 7 Days Qty: 21 0RF diphenhydramine HCl [Benadryl] 25 mg capsule 25 - 50 mg PO TID PRNQty: 20 0RF cephalexin 500 mg capsule 500 mg PO TID 7 Days Qty: 21 0RF prednisone 20 mg tablet 20 mg PO BID Qty: 14 0RF ibuprofen 800 mg tablet 800 mg PO TID PRN (Reason: pain) Qty: 60 2RF Follow Up/Referrals: Ananda Richardson MD [Primary Care Provider] - Stand Alone Forms: [facility] Info Instructions
--- OUTSIDE RECORDS SUMMARY | 2024-03-13 09:01 | XMS_ITS | Encounter Summary ---
Author Name Unknown Organization [place] Address [address] [place] [address] Care Team Providers Care It Assistant Name Role Phone Sergio Germain MD Primary Care Provider Unav ailable Dante Brady PA-C Unavailable [phone] Dante Brady PA-C Unavailable [phone] Reason for Visit * Reason Comments Sleep Problem Encounter Details Date Type Department Care Team (Late st Contact Info) Description 02/18/2018 [facility] [place] [address] [facility] [address] [place] [phone] Gio Klein MD [address] [place] [address] Social History Tobacco Use Types Packs/Day Years [...] on filedocumented in this encounter Care Teams It Assistant Relationship Specialty Start Date End Date Sergio Germain MD PCP - General 12/23/01 Dante Brady PA-C [address] [place] [id number] Assigned Neuroscience Provider 01/22/21 02/15/21 Dante Brady PA-C [address] [place] [address] Assigned Sleep Provider 01/22/21 documented as of this encounter
--- OUTSIDE RECORDS SUMMARY | 2024-03-13 09:01 | XMS_ITS | Referral Summary ---
Author Name Unknown Organization [place] Address [address] [place] [address] Care Team Providers Care Oil Laboratory Analyst Name Role Phone Sergio Germain MD Primary [...] of Treatment Not on file Care Teams Oil Laboratory Analyst Relationship Specialty Start Date End Date Sergio Germain MD PCP - General 12/23/01
--- OUTSIDE RECORDS SUMMARY | 2024-03-13 09:01 | XMS_ITS | Clinical Summary ---
Author Name Unknown Organization [place] Address [address] [place] [address] Care Team Providers Care Rn Internal Medicine Name Role Phone Sergio Germain MD Primary [...] of Treatment Not on file Care Teams Rn Internal Medicine Relationship Specialty Start Date End Date Sergio Germain MD PCP - General 12/23/01
--- OUTSIDE RECORDS SUMMARY | 2024-03-13 09:01 | XMS_ITS | Encounter Summary ---
Author Name Unknown Organization [place] Address [address] [facility] [place] [address] Care Team Providers Care Marketing Community Liaison Name Role Phone Sergio Germain MD Primary Care Provider Dante Mackay PA-C Unavailable [phone] Dante Brady PA-C Unavailable [phone] Encounter Details Date Type Department Care Team (Late st Contact Info) Description 12/28/[address], [address] [place] [address] Sergio Germain MD EMERGENCY ROOM ENCOUNTER (Primary [...] encounter Progress Notes * 12/28/2002 11:59 PM [id number] 00:00 Emergency Department Encounter-[facility] HELENA BUSTOS) [Entered: 00:00 Nurse (HIM)] MODE OF ARRIVAL: Private transportation. CHIEF [...] BUSTOS MD T: 003 08:35 MT: Document: [id number] [place], [place] Name: DIMA SHEPHERD EMERGENCY ROOM ENCOUNTER Page 2 of 2 LCN: ER DSC: 12/28/2002 [place], [place] Name: DIMA SHEPHERD MR#: : Admit Date: [id number] 1965 12/28/2002 Doctor: HELENA BUSTOS MD EMERGENCY ROOM ENCOUNTER Page 1 of 2 Electronically filed by Bang Katz 01/04/2003 5:36 PM documented in this encounter Plan of Treatment Not on file documented as of this encounter Visit Diagnoses Diagnosis EMERGENCY ROOM ENCOUNTER- Primary documented in this encounter Care Teams Marketing Community Liaison Relationship Specialty Start Date End Date Sergio Germain MD PCP - General 12/23/01 Dante Brady PA-C [address] [place] [address] Assigned Neuroscience Provider 01/22/21 02/15/21 Dante Brady PA-C [address] [place] [address] Assigned Sleep Provider 01/22/21 documented as of this encounter
--- OUTSIDE RECORDS SUMMARY | 2024-03-13 09:01 | XMS_ITS | Clinical Summary ---
Author Name Unknown Organization [facility] Address [place], [place] [address] Care Team Providers Care Television Program Director Name Role Phone Sarahi Quigley DDTiti Primary [...] - 199 mg/dL 02/21/2019 2:09 PM CDT [facility] TR[facility] LAB[facility]ATORY TRIGLYCERIDES 102 <150 mg/dL 02/21/2019 2:09 PM CDT [facility] HDL CHOLESTEROL 30(L) >40 mg/dL 9 2:09 PM CDT [facility] NON-HDL CHOLESTEROL 170(H) <145 mg/dl 02/21/2019 2:09 PM CDT [facility] TR[facility] LAB[facility]ORY CHOL/HDL RATIO 6.67(H) <4.50 02/21/2019 2:09 PM CDT [facility] TR[facility]ORY LDL CHOLESTEROL 150(H) <=130 mg/dL 02/21/2019 2:09 PM CDT [facility] TRAL LAB[facility]ATORY PROVIDER ORDERED STATUS FASTING 02/21/2019 2:09 PM CDT [facility] Blood BLOOD SPECIMEN / Unknown Venipuncture / Unknown 02/21/2019 8:23 AM CDT 02/21/2019 8:23 AM CDT Chet DE LA FU[place]E CHEMISTRY [facility] [address] [place] [address], [place] * SCAN-COLONOSCOPY (03/14/2018 3:00 PM CDT) Narrative Procedure Note Loco Al, DO - 03/14/2018 2:01 PM CDTThis note has been archived and cannot be retrieved at this time. Loco Al DO OTHER from Last 3 Months or Most Recently Relevant to Health Maintenance Care Teams Television Program Director Relationship Specialty Start Date End Date Sarahi Quigley DDS [address] [place] [address] PCP - General Dentistry - General 02/15/18
== END 2024-03-13 09:14 | disposition home or self-care (01) ==
PROVIDERS: Emergency Provider Emergency Medicine Emergency Medical Services; PCP Family Medicine
DX: L30.9 Dermatitis, unspecified (principal)
CPT/HCPCS: 99283; 99284

== ENCOUNTER 2024-11-07 21:30 | Emergency (ER) | payer OTHER, SELFPAY ==
--- OUTSIDE RECORDS SUMMARY | 2024-11-07 21:32 | XMS_ITS | Clinical Summary ---
Author Organization [place] Address [address] [place] [address] Care Team Providers Care Laborer Steel Handling Name Role Phone Sergio Germain MD Primary Care Provider Unav ailable Allergies Active Allergy Reactions Criticality Noted Date Comments No Known Allergies 01/08/2003 Oxycodone-Acetaminoph en Other (See Comments) Medium 10/09/2009 States his behavior became violent Medications ORDER FOR DMEIndications: Contusion of foot post op shoe 1 0 5 Active Additional Information Patient not taking.Reported on 03/02/2018 FLUTICASONE PROPIONATE (NASAL) INHA 50 MCG/DOSE NAIndications:M axillary sinusitis 2 sparys each nostril daily 1 month 0 9 Active buPROPion (WELLBUTRIN) 100 MG tablet Take 100 mg by mouth 8 Active Active Problems Problem Noted Date Diagnosed Date HYPERLIPIDEMIA LDL GOAL <130 09/07/2010 Chronic hepatitis C virus infection 01/14/2003 Overview (08/08/2015): Problem list name updated by automated process. Provider to review Obstructive sleep apnea syndrome 01/14/2003 Overview (08/08/2015): Problem list name updated by automated process. Provider to review Depressive disorder, not elsewhere classified Sciatica 01/14/2003 Hyperlipidemia 01/14/2003 Overview (08/08/2015): Problem list name updated by automated process. 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 Gender Identity Not on file Sexual Orientation Not on file Last Filed Vital Signs Vital Sign Reading Time Taken Comments Blood Pressure 112/75 08/16/2019 3:53 PM CDT Pulse 78 08/16/2019 3:53 PM CDT Temperature 36.8 C (98.3 F) 04/11/2009 3:19 PM CDT Respiratory Rate 16 08/16/2019 3:53 PM CDT Oxygen Saturation 94% 08/16/2019 3:53 PM CDT Inhaled Oxygen Concentration - - Weight 93.4 kg (206 lb) 08/16/2019 3:53 PM CDT Height 175.3 cm (5' 9) 08/16/2019 3:53 PM CDT Body Mass Index 30.42 08/16/2019 3:53 PM CDT Plan of Treatment Not on file Insurance [address] [place] [address] [place] [address] OTHER Care Teams Laborer Steel Handling Relationship Specialty Start Date End Date Sergio Germain MD PCP - General 12/23/01
--- OUTSIDE RECORDS SUMMARY | 2024-11-07 21:32 | XMS_ITS | Referral Summary ---
Author Organization [place] Address [address] 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
--- OUTSIDE RECORDS SUMMARY | 2024-11-07 21:32 | XMS_ITS | Encounter Summary ---
Author Organization [place] Address [address] [facility] 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 CHIEF COMPLAINT: Headac he. HISTORY OF PRESENT ILLNESS: Dima Cunha is a 37 year old male who [...] BUSTOS MD T: 003 08:35 MT: Document: [id number] [place], [place] Name: SARTHAKChristinaDIMA EMERGENCY ROOM ENCOUNTER Page 2 of 2 LCN: ER DSC: 12/28/2002 [place], [place] Name: CORA DIMA Angel MR#: : Admit Date: -40 1965 12/28/2002 Doctor: HELENA BUSTOS MD EMERGENCY ROOM ENCOUNTER Page 1 of 2 Electronically filed by Bang Katz 01/04/2003 5:36 PM documented in this encounter Plan of Treatment Not on file documented as of this encounter Visit Diagnoses Diagnosis EMERGENCY ROOM ENCOUNTER- Primary documented in this encounter Care Teams R Developer Relationship Specialty Start Date End Date Sergio Germain MD PCP - General 12/23/01 Dante Brady PA-C [address] [place] [address] Assigned Neuroscience Provider 01/22/21 02/15/21 Dante Brady PA-C [address] [place] [address] Assigned Sleep Provider 01/22/21 documented as of this encounter
--- OUTSIDE RECORDS SUMMARY | 2024-11-07 21:32 | XMS_ITS | Encounter Summary ---
Author Organization [place] Address [address] [facility] [place] [address] Care Team Providers Care Splitter Head Name Role Phone Sergio Germain MD Primary Care Provider Dante Mackay PA-C Unavailable [phone] Dante Brady PA-C Unavailable [phone] Reason for Visit * Reason Comments Sleep Problem Encounter Details Date Type Department Care Team (Late st Contact Info) Description 02/18/2018 [facility] [place] [address] [facility] [address] [place] [phone] Gio Klein MD [address] [place] [id number] Social History Tobacco Use Types Packs/Day Years Used Date Smoking Tobacco: Every Day Cigarettes 0 Alcohol Use Standard Drinks/Week Comments No 0 (1 standard drink = 0.6 oz pur e alcohol) Sex and Gender Information Value Date Recorded Sex Assigned at Not on file 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
--- OUTSIDE RECORDS SUMMARY | 2024-11-07 21:32 | XMS_ITS | Clinical Summary ---
Author Organization [facility] Address [place], [place] [address] Care Team Providers Care It Director Name Role Phone BlockSarahi Fontana DDTiti Primary Care Pr ovider Allergies Active Allergy Reactions Criticality Noted Date Comments Hydrocodone-Acetaminophen 12/22/2010 heartburn Oxycodone-Acetaminophen 12/22/2010 moodiness Medications CPAPIndications :CLARE on CPAP cpap supplies with nasal mask 1 unit 02/15/2018 Active fluticasone (50 mcg per actuation) nasal solution (FLONASE)Indica tions:Dysfuncti on of right eustachian tube Inhale 2 Sprays into both nostrils once daily. 1 Bottle 3 02/21/2019 Active loratadine-pseu doephedrine, 10-240 mg, 24 hr (CLARITIN-D 24 HOUR) 10-240 mg per tabletIndicatio ns:Acute non-recurrent frontal sinusitis Take 1 tablet by mouth once daily. 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 Gender Identity Not on file Sexual Orientation Not on file Obstetrics History Last Filed Vital Signs Vital Sign Reading Time Taken Comments Blood Pressure 126/78 08/23/2019 7:39 AM CDT Pulse 82 08/23/2019 7:39 AM CDT Temperature 36.6 C (97.8 F) 08/23/2019 7:39 AM CDT Respiratory Rate 16 04/03/2015 9:34 AM CDT Oxygen Saturation 96% 08/23/2019 7:39 AM CDT Inhaled Oxygen Concentration - - Weight 94.5 kg (208 lb 6.4 oz) 08/23/2019 7:39 A M CDT Height 175.3 cm (5' 9) 08/23/2019 7:39 AM CDT Body Mass Index 30.78 08/23/2019 7:39 AM CDT Plan of Treatment Health Maintenance Due Date Last Done Comments HIV for age 15-65 1980 Pneumococcal series for age 50+ (1 of 1 - PCV) 2015 Zoster (shingles) series for age 50+ (1 of 2) 2015 BMI (ht and wt on same day) for age 18+ 08/23/2020 08/23/2019, 02/21/2019, 09/06/2018, Additional history exists Depression screening for age 12+ 08/23/2020 08/23/20 19, 01/24/2018 Tetanus booster 03/26/2022 03/26/2012, 04/14/2000 Colonoscopy through age 75 03/14/2023 03/14/2018 Lipids for age 45-75 02/22/2024 02/21/2019, 02/16/20 18 COVID-19 vaccine series (2023- season) 2024 Influenza for age 50-64 07/09/2024 09/06/2018 Hepatitis C screening for ag e 18-79 Completed 07/20/2003 Tdap Completed 03/26/2012 Procedures Procedure Name Priority Date/Time Associated Diagnosis Comments LIPID PANEL W REFLEX MEASURED LDL Routine 02/21/2019 8:23 AM CDT Health care maintenance SCAN-COLONOSCOPY 03/14/2018 3:00 PM CDT from Last 3 Months or Most Recently Relevant to Health Maintenance Results * (ABNORMAL) LIPID PANEL W REFLEX MEASURED LDL (02/21/2019 8:23 AM CDT) CHOLESTEROL,TOTAL 200(H) 100 - 199 mg/dL 02/21/2019 2:09 PM CDT [facility] TRAL LABORATORY TRIGLYCERIDES 102 <150 mg/dL 02/21/2019 2:09 PM CDT [facility] TRAL LABORATORY HDL CHOLESTEROL 30(L) >40 mg/dL 9 2:09 PM CDT [facility] TRAL LABORATORY NON-HDL CHOLESTEROL 170(H) <145 mg/dl 02/21/2019 2:09 PM CDT [facility] TRAL LABORATORY CHOL/HDL RATIO 6.67(H) <4.50 02/21/2019 2:09 PM CDT [facility] TRAL LABORATORY LDL CHOLESTEROL 150(H) <=130 mg/dL 02/21/2019 2:09 PM CDT [facility] TRAL LABORATORY PROVIDER ORDERED STATUS FASTING 02/21/2019 2:09 PM CDT [facility] TRAL LABORATORY Blood BLOOD SPECIMEN / Unknown Venipuncture / Unknown 02/21/2019 8:23 AM CDT 02/21/2019 8:23 AM CDT us Chet DE LA FU[place]E CHEMISTRY Final Resul t [facility] [address] [place] [address], * SCAN-COLONOSCOPY (03/14/2018 3:00 PM CDT) Narrative Procedure Note Loco Al DO - 03/14/2018 2:01 PM CDT [facility] [address] [place] [address], [address], [place] [address] Patient Name: Juno Cunha Gender: Male Exam Date: 03/14/2018 Visit Number: [id number] Age: 52 Years Date of : 1965 Attending MD: Loco Al DO Medical Record#: [id number] ----- Procedure: Colonoscopy Indications: Colorectal cancer screening [...] Al DO 03/14/2018 Loco Al DO OTHER Final Resul t from Last 3 Months or Most Recently Relevant to Health Maintenance Care Teams It Director Relationship Specialty Start Date End Date Sarahi Quigley DDS [address] [place] [address] PCP - General Dentistry - General 02/15/18
--- NOTE | 2024-11-07 21:36 | CRLHL7_ITS ---
For Patients: As a result of the Century Cures Act, medical imaging exams and procedure reports are released immediately into your electronic medical record. You may view this report before your referring provider. If you have questions, please contact your health care provider. Indication: Injury of right ankle. Technique: Right ankle 3 views. Comparison: None. Findings: Bones: Comminuted calcaneal fractures. No definite ankle fracture. Joint spaces: Unremarkable. Soft tissues: Mild soft tissue swelling about the foot and ankle. Impression: Comminuted calcaneal fractures described on separately dictated CT of the right foot. No definite ankle injury. Dictated by Juno Hampton MD @ 11/07/2024 10:52:41 PM (Electronically Signed)
[2024-11-07 21:37] VITALS: BP 162/74; PULSE 83; RESP 18; TEMP 36.7; O2SAT 99; BMI 22.0
--- NOTE | 2024-11-07 21:38 | ED.LOWEXIN ---
HPI - Extremity Injury (Lower) General Time Seen by Provider: 21:38 Date Seen: 11/07/24 Chief Complaint: Extremity Pain/Injury, Lower Stated Complaint: right ankle injury Time Seen by Provider: 11/07/24 21:37 Source: patient, RN notes reviewed and old records reviewed Mode of arrival: ambulatory Limitations: no limitations History of Present Illness HPI Narrative: 59-year-old male who presents today with ankle injury. Patient reports he fell down about 5 stairs and landed on his right leg, complaining of right ankle pain. Did ambulate a little bit. Has not taken anything for this. Related Data Home Medications ?Medication ?Instructions ?Recorded ?Confirmed atorvastatin 20 mg tablet 20 mg PO QPM 11/07/24 11/07/24 Previous Rx's ?Medication ?Instructions ?Recorded ibuprofen 800 mg tablet 800 mg PO TID PRN pain #60 tabs 04/07/23 rosuvastatin 5 mg tablet 5 mg PO QDAY #90 tabs 01/28/24 albuterol sulfate 90 mcg/actuation 1 inh inhalation QID PRN shortness 09/12/24 aerosol inhaler of breath or wheezing #8.5 grams hydromorphone 2 mg tablet 2 mg PO Q6H PRN pain #10 tabs 11/08/24 (Dilaudid) hydromorphone 2 mg tablet See Rx Instructions PO Q4H PRN 11/10/24 pain #40 tabs Allergies Allergy/AdvReac Type Severity Reaction Status Date / Time hydrocodone Allergy Mild Agitation Verified 11/07/24 21:40 oxycodone (From Percocet) Allergy Mild Agitation Verified 11/07/24 21:40 PFSH PFSH Medical History (Updated 11/10/24 @ 15:57 by Ananda Richardson MD) RLL pneumonia ?J18.9 - Pneumonia, unspecified organism (ICD-10) Surgical History Status post lumbar spinal fusion ?Z98.1 - Arthrodesis status (ICD-10) History of appendectomy ?Z90.49 - Acquired absence of other specified parts of digestive tract (ICD-10) Family History Father No problems noted. 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 Smoking Status: Former smoker What tobacco products do you use: cigarettes Smoking quit date/years: <= 15 years ago Do you use any of these nicotine containing products: None Second hand tobacco smoke exposure: No How often do you have a drink containing alcohol: never How often do you have six or more drinks on one occasion: Never AUDIT-C Alcohol total score: 0 Non-prescribed substance use: denies use service: No Exam Narrative: Exam Narrative: General: well nourished , NAD Head: Atraumatic and normocephalic ENT: External ears and external nose are normal Eyes: Conjunctiva clear, pupils are equal reactive, external ocular motions are intact Neck: Full spontaneous range of motion of the neck Lungs: No respiratory distress Musculoskeletal: Tenderness and swelling anterior and inferior to the lateral malleolus on the right. Also tenderness of the right proximal fibula, no tenderness of the base of the 5th metatarsal. Neurologic: No gross focal neurologic deficits Skin: No rashes Psych: Mood and affect are appropriate Const: Vital Signs, click to edit/add: Vital Signs - 24 hr 11/07/24 21:37 11/07/24 22:00 Temperature 98.0 F Pulse Rate [Right Pulse Oximeter] 83 Respiratory Rate 18 Blood Pressure [Ri ght Upper Arm] 162/74 H Pulse Oximetry 99 99 Oxygen Delivery Me thod Room Air Course Course ED Course: Reviewed most recent emergency department visit from February 2024 1 patient was seen with itching, previously has been seen with an allergic reaction prior to that, patient started on prednisone and triamcinolone cream and suggestion to follow-up with dermatology. Patient presents today with right ankle injury after falling down some stairs. On exam there is swelling anterior and inferior to the lateral malleolus on the right, no tenderness base that metatarsal. X-ray of the panel interpreted by me at bedside negative for acute fracture. Patient does have some tenderness of the proximal fibula in given injury, will x-ray this to be sure there is no proximal fibular fracture. However, on further review, patient has a comminuted calcaneal fracture. Care discussed with Mary with orthopedics who agrees with plan for CT scan and will need to follow-up for advanced orthopedic care. Reevaluation(s) Time of Reevaluation #1: 22:49 Reevaluation #1: CT scan of the foot and fell interpreted by me demonstrates worsened displacement of the fracture fragments then initially demonstrated on plain films. Will discuss with [facility]. Splint placement- right calcaneal fracture. Fiberglass posterior short-leg slab with short-leg stirrup placed. Neurovascularly intact after procedure and patient tolerated well. Time of Reevaluation #2: 23:59 Reevaluation #2: Discussed CT result with EDITH Hernandez with orthopedics who discussed care with Dr. Romero, patient is stable for outpatient follow-up. Will be discharged with tramadol and given instructions for follow-up. Vital Signs Vital signs: Initial Vital Signs Temperature 98.0 F 11/07/24 21:37 Temperature Source Temporal Artery Scan 11/07/24 21:37 Pulse Rate 83 11/07/24 21:37 Respiratory Rate 18 11/07/24 21:37 Blood Pressure 162/74 H 11/07/24 21:37 Blood Pressure Mean 103 11/07/24 21:37 Blood Pressure Position Sitting 11/07/24 21:37 Pulse Oximetry 99 11/07/24 21:37 Oxygen Delivery Method Room Air 11/07/24 21:37 Vital Signs Temperature 98.0 F 11/07/24 21:37 Pulse Rate 83 11/07/24 21:37 Respiratory Rate 18 11/07/24 21:37 Blood Pressure 162/74 H 11/07/24 21:37 Pulse Oximetry 99 11/07/24 21:37 Oxygen Delivery Method Room Air 11/07/24 21:37 Temperature 98.0 F 11/08/24 01:18 Pulse Rate 74 11/08/24 01:18 Respiratory Rate 16 11/08/24 01:18 Blood Pressure 125/97 H 11/08/24 01:04 Pulse Oximetry 95 11/08/24 01:18 Oxygen Delivery Method Room Air 11/08/24 01:18 Medications Administered Medications: Discontinued Medications Generic Name Dose Route Start Last Admin Trade Name Freq PRN Reason Stop Dose Admin Hydromorphone HCl 0.5 mg 11/07/24 21:57 11/07/24 22:02 Hydromorphone 0.5 Mg/0.5 Ml Inj IVP 11/07/24 21:58 0.5 mg ONCE ONE Administration Hydromorphone HCl 0.5 mg 11/07/24 22:50 11/07/24 22:57 Hydromorphone 0.5 Mg/0.5 Ml Inj IVP 11/07/24 22:51 0.5 mg ONCE ONE Administration Hydromorphone HCl 1 mg 11/08/24 00:40 11/08/24 00:43 Hydromorphone 0.5 Mg/0.5 Ml Inj IVP 11/08/24 00:41 1 mg ONCE ONE Administration Ketorolac Tromethamine 15 mg 11/08/24 00:22 11/08/24 00:25 Ketorolac 15 Mg/Ml Inj IVP 11/08/24 00:23 15 mg ONCE ONE Administration Tramadol HCl 50 mg 11/08/24 00:22 11/08/24 00:25 Tramadol Hcl 50 Mg Tablet PO 11/08/24 00:23 50 mg ONCE ONE Administration Discharge Plan Discharge Clinical Impression: Calcaneus fracture, right Patient Disposition: Home, Self-Care Condition: Stable Instructions: Calcaneal Fracture (ED) Additional Instructions: Follow-up with orthopedics, either [place], [facility], or [facility]. [place] [facility]: [phone] [facility]: [phone] [facility]: [phone] Activity Level: No Weight Bearing and Use Crutches Discharge Diet: Regular Prescriptions: New hydromorphone [Dilaudid] 2 mg tablet 2 mg PO Q6H PRN (Reason: pain) Qty: 10 0RF No Action rosuvastatin 5 mg tablet 5 mg PO QDAY Qty: 90 3RF atorvastatin 20 mg tablet 20 mg PO QPM ibuprofen 800 mg tablet 800 mg PO TID PRN (Reason: pain) Qty: 60 2RF albuterol sulfate 90 mcg/actuation HFA aerosol inhaler 1 inh inhalation QID PRN (Reason: shortness of breath or wheezing) Qty: 8.5 2RF hydromorphone 2 mg tablet See Rx Instructions PO Q4H PRN (Reason: pain) Qty: 40 0RF Rx Instructions: 1-2 tablets Q4H prn pain orally every 4 hours PRN; Follow Up/Referrals: Ananda Richardson MD [Primary Care Provider] - Stand Alone Forms: [facility] Info Instructions
--- NOTE | 2024-11-07 21:45 | CRLHL7_ITS ---
For Patients: As a result of the Century Cures Act, medical imaging exams and procedure reports are released immediately into your electronic medical record. You may view this report before your referring provider. If you have questions, please contact your health care provider. Indication: Fall, proximal fibula tender. Technique: Two views of the right tibia and fibula. Comparison: None. Findings/Impression: Bones: No tibial or fibular fracture identified. Comminuted calcaneal fracture described separately. Joint spaces: Unremarkable. Soft tissues: Soft tissue swelling about the foot and ankle. Dictated by Juno Hampton MD @ 11/07/2024 10:55:14 PM (Electronically Signed)
--- NOTE | 2024-11-07 21:57 | CRLHL7_ITS ---
For Patients: As a result of the Century Cures Act, medical imaging exams and procedure reports are released immediately into your electronic medical record. You may view this report before your referring provider. If you have questions, please contact your health care provider. Indication: Fall, suspected calcaneal fracture Technique: Noncontrast CT images of the right foot were captured and reformatted in multiple planes. Comparison: None Findings/Impression: Comminuted fracture of the calcaneus with partial collapse and mild displacement of fragments. No other definite fractured bones within the field of view. Bony fragment posterior to the talus appears corticated and may be sequelae of prior injury (05/07). Superficial soft tissue swelling about the foot and ankle. Please note that all CT scans at this facility use dose modulation, iterative reconstruction, and/or weight-based dosing when appropriate to reduce radiation dose to as low as reasonably achievable. Dictated by Juno Hampton MD @ 11/07/2024 11:50:05 PM (Electronically Signed)
[2024-11-07 22:00] VITALS: BP 159/71; PULSE 81; RESP 18; O2SAT 98; O2SAT 99
[2024-11-07] MEDS: HYDROmorphone 0.5 mg/0.5 ml inj IVP ×2 (22:02→22:57)
--- OUTSIDE RECORDS SUMMARY | 2024-11-07 22:32 | XMS_ITS | Encounter Summary ---
Author Organization [place] Address [address] [facility] [place] [address] Care Team Providers Care Pulmonary Fellow Name Role Phone Sergio Germain MD Primary Care Provider Dante Mackay PA-C Unavailable [phone] Dante Brady PA-C Unavailable [phone] Reason for Visit * Reason Comments Sleep Problem Encounter Details Date Type Department Care Team (Late st Contact Info) Description 02/18/2018 [facility] [place] [address] [facility] [address] [place] [phone] Gio Klein MD [address] [place] [id number] Social History Tobacco Use Types Packs/Day Years Used Date Smoking Tobacco: Every Day Cigarettes 0 Alcohol Use Standard Drinks/Week Comments No 0 (1 standard drink = 0.6 oz pur e alcohol) Sex and Gender Information Value Date Recorded Sex Assigned at Not on file 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
--- OUTSIDE RECORDS SUMMARY | 2024-11-07 22:32 | XMS_ITS | Encounter Summary ---
Author Organization [place] Address [address] [facility] 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 CHIEF [...] BUSTOS MD T: 003 08:35 MT: Document: [id number] [place], [place] Name: SARTHAKChristinaDIMA EMERGENCY ROOM ENCOUNTER Page 2 of 2 LCN: ER DSC: 12/28/2002 [place], [place] Name: CORA DIMA Angel MR#: : Admit Date: -40 1965 12/28/2002 Doctor: HELENA BUSTOS MD EMERGENCY ROOM ENCOUNTER Page 1 of 2 Electronically filed by Bang Katz 01/04/2003 5:36 PM documented in this encounter Plan of Treatment Not on file documented as of this encounter Visit Diagnoses Diagnosis EMERGENCY ROOM ENCOUNTER- Primary documented in this encounter Care Teams Forest Fire Management Officer Relationship Specialty Start Date End Date Sergio Germain MD PCP - General 12/23/01 Dante Brady PA-C [address] [place] [address] Assigned Neuroscience Provider 01/22/21 02/15/21 Dante Brady PA-C [address] [place] [address] Assigned Sleep Provider 01/22/21 documented as of this encounter
--- OUTSIDE RECORDS SUMMARY | 2024-11-07 22:32 | XMS_ITS | Clinical Summary ---
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 TRIGLYCERIDES 102 <150 mg/dL 02/21/2019 2:09 PM CDT [facility] HDL CHOLESTEROL 30(L) >40 mg/dL 9 2:09 PM CDT [facility] NON-HDL CHOLESTEROL 170(H) <145 mg/dl 02/21/2019 2:09 PM CDT [facility] CHOL/HDL RATIO 6.67(H) <4.50 02/21/2019 2:09 PM CDT [facility] LDL CHOLESTEROL 150(H) <=130 mg/dL 02/21/2019 2:09 PM CDT [facility] PROVIDER ORDERED STATUS FASTING 02/21/2019 2:09 PM CDT [facility] Blood BLOOD SPECIMEN / Unknown Venipuncture / Unknown 02/21/2019 8:23 AM CDT 02/21/2019 8:23 AM CDT us Chet [facility] [place] [facility] CHEMISTRY Final Resul t [facility] [address] [place] [address], * SCAN-COLONOSCOPY (03/14/2018 3:00 PM CDT) Narrative Procedure Note Loco Al DO - 03/14/2018 2:01 PM CDT [facility] [address] [place] [address], [address], [place] [address] Patient Name: Juno Cunha Gender: Male Exam Date: 03/14/2018 Visit Number: [id number] Age: 52 Years Date of : 1965 Attending MD: Loco Al DO Medical Record#: [id number] ----- Procedure: Colonoscopy Indications: Colorectal cancer screening [...] Recently Relevant to Health Maintenance Care Teams Postpartum Rn Relationship Specialty Start Date End Date Sarahi Quigley DDS [address] [place] [address] PCP - General Dentistry - General 02/15/18
--- OUTSIDE RECORDS SUMMARY | 2024-11-07 22:32 | XMS_ITS | Clinical Summary ---
Author Organization [place] Address [address] 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
--- OUTSIDE RECORDS SUMMARY | 2024-11-07 22:32 | XMS_ITS | Referral Summary ---
Author Organization [place] Address [address] 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
[2024-11-07 23:00] VITALS: BP 148/88; PULSE 87; RESP 18; O2SAT 97
[2024-11-08 00:01] VITALS: BP 166/86; PULSE 71; RESP 16; O2SAT 96
[2024-11-08] MEDS: KETOROLAC 15 MG/ML inj IVP (00:25)
[2024-11-08] MEDS: TRAMADOL HCL 50 MG TABLET PO (00:25)
[2024-11-08] MEDS: HYDROmorphone 0.5 mg/0.5 ml inj 1 MG IVP (00:43)
[2024-11-08 01:04] VITALS: BP 125/97; PULSE 76; RESP 16; O2SAT 93
[2024-11-08 01:18] VITALS: PULSE 74; RESP 16; TEMP 36.7; O2SAT 95
== END 2024-11-08 01:21 | disposition home or self-care (01) ==
PROVIDERS: Emergency Provider Family Medicine; PCP Family Medicine
DX: S92.001A Unspecified fracture of right calcaneus, initial encounter for closed fracture (principal); W10.9XXA Fall (on) (from) unspecified stairs and steps, initial encounter
CPT/HCPCS: 29515; 73590; 73610; 73700; 94761; 96374; 96375; 99283; 99285; A9270; J1171; J1885

== ENCOUNTER 2025-04-09 05:33 | Emergency (ER) | payer OTHER, SELFPAY ==
--- OUTSIDE RECORDS SUMMARY | 2025-03-01 09:00 | XMS_ITS | Encounter Summary ---
Author Organization [facility] Address [address] [place] [address] Care Team Providers Care Hand Zipper Trimmer Name Role Phone Unassigned, Provider Primary Care Provider Unava ilable Reason for Visit * Reason Comments Preop Exam 03/06/2025 Dr. Wadsworth ms Encounter Details Date Type Department Care Team (Late st Contact Info) Description 03/01/2025 9:00 AM CDT Pre-Op Visit [place] [address] [place] [phone] Gilmer Su PA-C [address] [place], [place] [id number] Preop examination (Primary Dx); Ankle injury, right, subsequent encounter Social History Tobacco Use Types Packs/Day Years Used Date Smoking Tobacco: Former Cigarettes Smokeless Tobacco: Never Alcohol Use Standard Drinks/Week Comments Yes 0 (1 standard drink = 0.6 oz pur e alcohol) PHQ-2 Answer Date Recorded PHQ-2 Score 0 11/17/2024 Sex and Gender Information Value Date Recorded Sex Assigned at Not on file Legal Sex Male 5:39 AM CDT Gender Identity Not on file Sexual Orientation Not on file documented as of this encounter Last Filed Vital Signs Vital Sign Reading Time Taken Comments Blood Pressure 107/68 03/01/2025 8:55 AM CDT Pulse 66 03/01/2025 8:55 AM CDT Temperature 36.7 C (98 F) 03/01/2025 8:55 AM CDT Respiratory Rate 16 03/01/2025 8:55 AM CDT Oxygen Saturation 95% 03/01/2025 8:55 AM CDT Inhaled Oxygen Concentration - - Weight 83.5 kg (184 lb) 03/01/2025 8:55 AM CDT Height 172.7 cm (5' 8) 03/01/2025 8:55 AM CDT Body Mass Index 27.98 03/01/2025 8:55 AM CDT documented in this encounter Patient Instructions * Patient Instructions* Gilmer Su PA-C - 03/01/2025 9:00 AM CDT Follow your individualized medication recommendations as described above. In addition, please stop all lhmn-hje-[id number] medications including aspirin, ibuprofen (Advil, Motrin), naproxen (Aleve, Naprosyn), herbal remedies and supplements one week prior to procedure unless directed otherwise by your care team. You may continue to take acetaminophen (Tylenol) up to the dayof your procedure. Continue all other medications as currently taking. Let your care team know if you have questions. On the day of your procedure, do not wear any hair product including hair sprays and gels and avoidusing body sprays and deodorants/antiperspirants. Bring with you to the site of the procedure: Any oral appliances or CPAP equipment related to sleep apnea Any other health-related equipment or devices you use daily documented in this encounter OR Notes * H&P - Gilmer Su PA-C - 03/01/2025 9:00 AM CDT Pre-Operative Assessment 03/01/2025 Pre-Op Assessment Procedure Details Procedure Right ankle scope Surgeon Dr. Hale [facility] Procedure Date 03/06/2025 Cezar Fraire is a 59 y.o. old male here for pre-operative evaluation for procedure noted above. No historyof issues with anesthesia, including family/genetic anesthesia issues. No cardiac, or respiratory issues. No current acute illness symptoms. Patient Active Problem List Diagnosis Date Noted Loose body in right ankle 02/16/2025 Closed displaced intraarticular fracture of right calcaneus 11/13/2024 History reviewed. No pertinent past medical history. Past Surgical History: Procedure Laterality Date APPENDECTOMY BACK SURGERY x2 bone spur Right Foot Calcaneal fracture Right 11/2024 Current Outpatient Medications Medication Instructions VENTOLIN HFA 108 (90 Base) MCG/ACT inhaler 1 Puff, QID PRN Allergies Allergen Reactions Morphine And Codeine Other, see comments moodiness States his behavior became violent Hydrocodone-Acetaminophen Unknown heartburn Social History Occupational History Not on file Tobacco Use Smoking status: Former Types: Cigarettes Smokeless tobacco: Never Vaping Use Vaping status: Never Used Substance and Sexual Activity Alcohol use: Yes Drug use: Never Sexual activity: Yes Partners: Female No LMP for male patient. History reviewed. No pertinent family history. Review of Systems: 03/01/2025 ET Amb PreOp Assessment Sx Have you had a heart attack in the last 30 days? No Have you experienced chest tightening or chest pressure with activity? No Do you wake at night with difficulty breathing? No Do you have swelling in your feet or ankles? No Do you get short of breath if lying flat at night? No Do you hear wheezing or whistling when you breathe? No Have you had a cough, runny nose, or cold symptoms in the last 2 weeks? No Have you tested positive for Covid in the last 6 months? No Do you have a long-standing cough? No Do you snore or are you sleepy during the day? Yes Do you have any symptoms due to a recent concussion? No Do you or close relatives have bleeding or clotting problems? No Have you taken Aspirin, Ibuprofen (Advil) or Naproxen (Aleve) in the last 7 days? No Do you or close relatives have a history of a severe or life-threatening reaction to anesthesia? No Estimated Functional Capacity Can you climb one flight of stairs, or walk up a gradual uphill without stopping? yes, functional capacity is more than or equal to 4 METS Objective BP 107/68 (BP Location: Left Arm, BP Cuff Size: Large) Pulse 66 Temp 98 ??F (36.7 ??C) (Oral) Resp 16 Ht 5' 8 (1.727 m) Wt 184 lb (83.5 kg) SpO2 95% BMI 27.98 kg/m?? Physical Exam: General Appearance: alert, well appearing, and in no apparent distress Eyes: lids normal, sclera clear, conjunctiva normal, EOMs intact, and pupils equal round and reactive to light ENT: oropharynx clear, ear canals clear, and TMs normal Neck: no lymphadenopathy and no thyromegaly or nodules Heart: regular rate and rhythm and no murmurs, gallops or rubs Lungs: clear to auscultation, no wheezes, rales or rhonchi, equal breath sounds throughout, and normal respiratory effort Abdomen: soft, nondistended, nontender, no palpable masses, and no organomegaly Extremities: no edema Skin: no rashes or worrisome lesions Neurologic: normal speech, no facial droop, alert and oriented x 3, and cranial nerves 2 -12 intact Data: Labs: No EC11/17/2024 Sinus rhythm Normal ECG No previous ECGs available Assessment/Plan Patient is medically optimized for planned procedure(s). ICD-10-CM 1. Preop examination Z01.818 2. Ankle injury, right, subsequent encounter S99.911D Special risks: None Medication recommendations: Patient Instructions Follow your individualized medication recommendations as described above. In addition, please stop all jmnp-fkv-[id number] medications including aspirin, ibuprofen (Advil, Motrin), naproxen (Aleve, Naprosyn), herbal remedies and supplements one week prior to procedure unless directed otherwise by your care team. You may continue to take acetaminophen (Tylenol) up to the dayof your procedure. Continue all other medications as currently taking. Let your care team know if you have questions. On the day of your procedure, do not wear any hair product including hair sprays and gels and avoidusing body sprays and deodorants/antiperspirants. Bring with you to the site of the procedure: Any oral appliances or CPAP equipment related to sleep apnea Any other health-related equipment or devices you use daily Electronically signed by: Gilmer Su PA-C 03/01/2025, 9:15 AM documented in this encounter Plan of Treatment Upcoming Encounters Date Type Department Care Team (Late st Contact Info) Description 04/16/2025 9:00 AM CDT Appointment [facility] [id number] [place] [phone] Hung Hale MD [address] [place], [place] [address] Scheduled Procedures Name Priority Associated Diagnoses Date/Ti me ARTHROSCOPY ANKLE Loose body in right ankle OPEN REDUCTION INTERNAL FIXA TION CALCANEUS FRACTURE Closed displaced intra-articular fracture of right calcaneus, initial encounter documented as of this encounter Visit Diagnoses Diagnosis Preop examination- Primary Preoperative examination, unspecified Ankle injury, right, subsequent encounter documented in this encounter Care Teams Hand Zipper Trimmer Relationship Specialty Start Date End Date Unassigned, Provider [address] [place] [address] PCP - General 12/18/00 documented as of this encounter
--- OUTSIDE RECORDS SUMMARY | 2025-03-06 | XMS_ITS | Encounter Summary ---
Author Organization [facility] Address [address] [place] [address] Care Team Providers Care Boiler Control Technician Name Role Phone Unassigned, Provider Primary Care Provider Unava ilable Encounter Details Date Type Department Care Team (Late st Contact Info) Description 03/06/2025 Ancillary Procedure [facility] [place] [address] [place] [address] Hung Hale MD [address] [facility] [place] [id number] Social History Tobacco Use Types Packs/Day Years Used Date Smoking Tobacco: Former Cigarettes Smokeless Tobacco: Never Alcohol Use Standard Drinks/Week Comments Yes 0 (1 standard drink = 0.6 oz pur e alcohol) rarely PHQ-2 Answer Date Recorded PHQ-2 Score 0 11/17/2024 Sex and Gender Information Value Date Recorded Sex Assigned at Not on file Legal Sex Male 5:39 AM CDT Gender Identity Not on file Sexual Orientation Not on file documented as of this encounter Plan of Treatment Upcoming Encounters Date Type Department Care Team (Late st Contact Info) Description 04/16/2025 9:00 AM CDT Appointment [facility] [address] [place] [phone] Hung Hale MD [address] [facility] [place] [id number] Scheduled Procedures Name Priority Associated Diagnoses Date/Ti me ARTHROSCOPY ANKLE Loose body in right ankle OPEN REDUCTION INTERNAL FIXA TION CALCANEUS FRACTURE Closed displaced intra-articular fracture of right calcaneus, initial encounter documented as of this encounter Procedures Procedure Name Priority Date/Time Associated Diagnosis Comments RINKU ARTHROSCOPY ANKLE RT Routine 03/06/2025 9:17 AM CDT documented in this encounter Results * RINKU Arthroscopy Ankle Rt (03/06/2025 9:17 AM CDT) Anatomical Region Laterality Modality Lower Extremity, Ankle Endoscopy Narrative 03/06/2025 9:17 AM CDT These images were obtained during a surgical procedure. us Hung Hale MD RAD NON-REPORTABLES Final Result documented in this encounter Visit Diagnoses Not on filedocumented in this encounter Care Teams Boiler Control Technician Relationship Specialty Start Date End Date Unassigned, Provider [address] [place] [address] PCP - General 12/18/00 documented as of this encounter
--- OUTSIDE RECORDS SUMMARY | 2025-03-06 09:14 | XMS_ITS | Encounter Summary ---
Author Organization [employer] Address [address] [place] [address] Care Team Providers Care Deputy Commonwealth'S Attorney Name Role Phone Unassigned, Provider Primary Care Provider Unava ilable Reason for Visit * Auth/Cert (Routine) Specialty Diagnoses / Procedures Referred By Anni t Referred To Contact Diagnoses Loose body in right ankle Procedures ARTHROSCOPY ANKLE WITH DEBRIDEMENT Referral ID Status Reason Start Date Expiration Date Visits Re quested Visits Authorized [id number] 1 1 Encounter Details Date Type Department Care Team (Late st Contact Info) Description 03/06/2025 9:14 AM CDT - 03/06/2025 1:02 PM CDT Hospital Encounter [facility] [address] [place], [place] [id number] Hung Hale MD [address] [facility] [place] [address] Discharge Disposition: Home Social History Tobacco Use Types Packs/Day Years [...] Sign Reading Time Taken Comments Blood Pressure 115/82 03/06/2025 1:00 PM CDT Pulse 63 03/06/2025 1:00 PM CDT Temperature 36.5 C (97.7 F) 03/06/2025 1:00 PM CDT Respiratory Rate 14 03/06/2025 1:00 PM CDT Oxygen Saturation 96% 03/06/2025 1:00 PM CDT Inhaled Oxygen Concentration - - Weight - - Height - - Body Mass Index - - documented in this encounter Medications at Time of Discharge VENTOLIN HFA 108 (90 Base) MCG/ACT inhaler 1 Puff 4 times daily as needed. 07/11/2024 traMADol (ULTRAM) 50 MG tablet Take 1-2 Tablets (50-100 mg) by mouth every 6 hours as needed for Pain for up to 10 days. 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 He had prior loose bodiesin his ankle joint that began to hurt significantly at 2.5 months from surgery. The pain in his ankle was inhibiting his recovery. Plan was to remove the loose bodies.The risks, benefits and alternatives to surgical intervention were discussed at length with the patient. Specific risks discussed included: infection, wound breakdown, numbness and damage to nerves, tendon, muscle, arteries or otherblood vessels. The possibility of persistent pain and discomfort were also mentioned in conversation with the patient. Medical complications related to the patient's general medical health including deep vein thrombosis, pulmonary embolus and other complications from anesthesia were discussed as well. The patient was told that we will take steps to minimize these risks by using sterile technique,antibiotics and DVT prophylaxis when appropriate and following the patient postoperatively in the clinic setting to monitor progress. The benefits of surgery were discussed with the patient includingthe potential to improve the current clinical condition through operative intervention. Alternatives to surgical intervention include continued conservative management which may yield less than optimal results for this particular patient. All questions were answered to the satisfaction of the patient. The patient elected to move forward with the above mentioned surgery. PROCEDURE: The patient was met in the preoperative holding area, where the right leg was marked as the operative site and side. The patient was then brought to the operating room and placed in supine position on a well-padded operating room table. After induction of anesthesia, IV antibiotics were administered. A thigh tourniquet was applied, and the operative leg was then positioned on a well- padded knee jensen, allowing the lower leg to hang freely. The operative leg was then prepped and draped in standard sterile fashion to the knee. Timeout was called for to confirm patient's name, date of , and planned procedure. The surgery commenced by making a medial portal just medial to the tibialis anterior tendon at the level of the ankle joint, with a 15 blade. Blunt dissection was made down to and through the joint capsule with a mosquito clamp. A blunt trocar was used to enter the ankle joint, and the arthroscope was then placed. The arthroscope was directed towards the anterior lateral portion of the ankle, fordirect visualization of making the anterolateral portal. The lateral portal, made just lateral to the peroneus tertius, was checked with a spinal needle. An incision was made with a 15 blade, and a mosquito clamp was used for blunt dissection down to and through the joint capsule. A shaver was introduced through the anterior lateral portal. Scar tissue in the medial and lateral gutters was removed with the shaver. There were 3 loose bodies in the anterior ankle that were removed with a grasper.A large anterior osteophyte was removed with a shaver and rongeur. The shaver was used remove scar tissue in the medial and lateral gutters. Instrumentation was removed from the ankle and portals were closed with 3-0 nylon in an inverted figure-of-8 fashion. Skin was closed with 3-0 Nylon. Xeroform, 4x4s, and Webril were placed over the wound. All counts were correct at the end of the case. Patient is brought back to postop holding area in stable condition. POSTOPERATIVE PLAN: - WB status: WBAT - DVT Prophylaxis: none - Bracing/Splinting: none - Meds: Tramadol - Drains: none - X-rays: none F/U: 2 weeks with right ankle and calcaneus XRs Hung Hale MD Orthopedic Foot and Ankle Surgery documented in this encounter Plan of Treatment Upcoming Encounters Date Type Department Care Team (Late st Contact Info) Description 04/16/2025 9:00 AM CDT Appointment [facility] [address] [place] [address] Hung Hale MD [address] [facility] [place] [address] Scheduled Procedures Name Priority Associated Diagnoses Date/Ti me ARTHROSCOPY ANKLE Loose body in right ankle OPEN REDUCTION INTERNAL FIXA TION CALCANEUS FRACTURE Closed displaced intra-articular fracture of right calcaneus, initial encounter documented as of this encounter Procedures Procedure Name Priority Date/Time Associated Diagnosis Comments ARTHROSCOPY ANKLE 03/06/2025 10:25 AM CDT Loose body in right ankle documented in this encounter Visit Diagnoses Diagnosis Loose body in right ankle- Primary documented in this encounter Admitting Diagnoses Diagnosis Loose body in right ankle documented in this encounter Administered Medications Inactive Administered Medications - up to 3 most recent administrations Medication Order MAR Action Action Date Dose Rate Site BUPivacaine PF (SENSORCAINE) 0.5% injection ONCE PRN, Starting on Wed03/06/25 at 1100, Until Wed03/06/25 at 1519, Intra-op Given 03/06/2025 11:00 AM CDT 3 mL Right Ankle fentaNYL (SUBLIMAZE) injection 25 mcg 25 mcg, Intravenous, [id number], Pain, the immediate postop period when longer acting agent is desired, Starting on Wed03/06/25 at 0928, Until Wed03/06/25 at 151, Use fentanyl as first line short acting agent for treatment of acute post operative pain. May use for breakthrough pain in conjunction with a longer acting agent (hydromorphone or morphine). Max cumulative dose: 250 mcg. Call anesthesia if additional or greater doses needed. For patients with a regional, spinal, or local anesthetic, may give for anticipated pain as the anesthetic wears off. Respiratory rate must be greater than 10 to administer medications., PACU/Recovery Given 03/06/2025 12:17 PM CDT 25 mcg Given 03/06/2025 12:08 PM CDT 25 mcg Given 03/06/2025 11:58 AM CDT 25 mcg fentaNYL (SUBLIMAZE) injection 25-50 mcg 25-50 mcg, Intravenous, [id number], Pain, Procedure, Starting on Wed03/06/25 at 0939, Until Wed03/06/25 at 1519, For 2 doses, As directed by anesthesiologist, Pre-op HYDROmorphone (DILAUDID) injection 0.25 mg 0.25 mg, Intravenous, Q10MIN PRN, Pain, The immediate postop period when longer acting agent is desired, Starting on Wed03/06/25 at 0928, Until Wed03/06/25 at 151, Use hydromorphone if fentanyl is not adequately managing pain. May use fentanyl for breakthrough pain in conjunction with hydromorphone dosing. Maximum cumulative dose is 4 mg in PACU, call anesthesia if additional or greater doses needed. For patients with a regional, spinal, or local anesthetic, may give for anticipated pain as the anesthetic wears off., PACU/Recovery lactated ringers infusion Intravenous, at 30 mL/hr, CONTINUOUS, Starting on Wed03/06/25 at 1000, Pre-op Started 03/06/2025 10:39 AM CDT Started 03/06/2025 9:55 AM CDT 30 mL/hr meperidine (DEMEROL) injection 12.5 mg 12.5 mg, Intravenous, [id number], Shivering, Starting on Wed03/06/25 at 0928, Until Wed03/06/25 at 151, For 2 doses, Maximum cumulative dose is 25 mg. Do not give to patients receiving MAO inhibitors (e.g. phenelzine (NARDIL), tranylcypromine (PARNATE), selegiline (ELDEPRYL))., PACU/Recovery midazolam (VERSED) injection 1-2 mg 1-2 mg, Intravenous, [id number], Sedation, Anxiety, Procedure, Starting on Wed03/06/25 at 0939, Until Wed03/06/25 at 1518, As directed by anesthesiologist MAX Dose 2mg, Pre-op naloxone (NARCAN) injection 0.04 mg 0.04 mg, Intravenous, Q2MIN PRN, Opioid Reversal, Non-Emergent Opioid Reversal (Respiratory Rate less than 8 breaths per minute or difficult to arouse), Starting on Wed03/06/25 at 0939, Until Wed03/06/25 at 1518, Dilution Instructions: Dilute 1 mL of 0.4 mg/mL naloxone vial into 9 mL of normal saline to make a final concentration of 0.04 mg/mL. Discard dose if not used within 1 hour. Use 1 mL of diluted 0.04 mg/mL strength slow IV push over 1 minute. Give first dose, notify practitioner, and continue to observe. Repeat for up to 5 doses per episode until patient is arousable and can take deep breaths. If no improvement in respiratory rate or remains difficult to arouse notify practitioner for additional orders. , PACU (only) naloxone (NARCAN) injection 0.4 mg 0.4 mg, Intravenous, Q2MIN PRN, Opioid Reversal, Emergent Opioid Reversal (Respiratory Rate less than 6 breaths per minute or unresponsive to physical stimulation), Starting on Wed03/06/25 at 0939, Until Wed03/06/25 at 1518, Give first dose, notify practitioner, and continue to observe. Repeat for up to 5 doses per episode until patient is responsive to physical stimulation and can take deep breaths. , PACU (only) ondansetron (ZOFRAN) injection 4 mg 4 mg, Intravenous, Q4H PRN, Nausea, Vomiting, Starting on Wed03/06/25 at 0928, Until Wed03/06/25 at 1518, If multiple medications are ordered for nausea or vomiting - administer in the following priority based on medications ordered, effectiveness and availability: ondansetron (ZOFRAN) > prochlorperazine (COMPAZINE) > diphenhydrAMINE (BENADRYL) > hydrOXYzine HCl (VISTARIL)> ePHEDrine > scopolamine (TRANSDERM-SCOP)., PACU/Recovery traMADol (ULTRAM) tablet 50-100 mg 50-100 mg, Oral, Q6H PRN, Pain, Starting on Wed03/06/25 at 1205, Until Wed03/06/25 at 1519, PACU & Post-op Given 03/06/2025 12:05 PM CDT 50 mg documented in this encounter Active and Recently Administered Medications Times are shown in CDT. Scheduled Medication Order 03/04/2025 03/05/2025 03/06/2025 ceFAZolin (ANCEF) 2 g in sodium chloride 0.9 % 50 mL IVPB (COMPLETED) 2 g, Intravenous, Administer over 30 Minutes, ONCE, On Wed03/06/25 at 1000, For 1 dose, Infuse within 60 minutes prior to incision Allergy to penicillin; consult day of surgery, check reaction history, assess previous surgical Allergy to penicillin; consult day of surgery, check reaction history, assess previous surgical records, other antibiotics previously used by patient, & timeline of reactions if known: if reaction includes; rash, itching, GI disturbance, headache, hives, laryngeal edema, bronchospasm, angioedema, anaphylaxis, or a documented elevated serum tryptase after a reaction, or a vague reaction history: Administer ONLY cefazolin, DO NOT ADMINISTER ANY OTHER cephalosporin pre-operatively. Re-dose 1 gram IV every 4 hours after initial dose until incision closed., Pre-op 1048 (Started - Prov ider: Mee Bowden APRN, ABISAI) chloroprocaine (NESACAINE) 3 % injection 3 mL 3 mL, Regional Nerve Block, ONCE, On Wed03/06/25 at 1000, For 1 dose, Pre-Op Signed and Held 1000 (Due) Continuous Medication Order 03/04/2025 03/05/2025 03/06/2025 lactated ringers infusion Intravenous, at 30 mL/hr, CONTINUOUS, Starting on Wed03/06/25 at 1000, Pre-op 0955 (Started - Prov ider: Debby Kelly RN)1038 (Stopped - Provider: Mee Bowden APRN, ABISAI - Comment: Switch to gravity)1039 (Started - Provider: Mee Bowden APRN, ABISAI)1145 (Anesthesia Fluid - Provider: Majo Lim APRN, ABISAI)1519 (Due: Order Ending - [facility] - Comment: [Order ends at this time. Document the following action when infusion is complete: Infused]) PRN Medication Order 03/04/2025 03/05/2025 03/06/2025 BUPivacaine PF (SENSORCAINE) 0.5% injection ONCE PRN, Starting on Wed03/06/25 at 1100, Until Wed03/06/25 at 1519, Intra-op 1100 (Given - Provid er: Hung Hale MD) fentaNYL (SUBLIMAZE) injection 25 mcg 25 mcg, Intravenous, [id number], Pain, the immediate postop period when longer acting agent is desired, Starting on Wed03/06/25 at 0928, Until Wed03/06/25 at 151, Use fentanyl as first line short acting agent for treatment of acute post operative pain. May use for breakthrough pain in conjunction with a longer acting agent (hydromorphone or morphine). Max cumulative dose: 250 mcg. Call anesthesia if additional or greater doses needed. For patients with a regional, spinal, or local anesthetic, may give for anticipated pain as the anesthetic wears off. Respiratory rate must be greater than 10 to administer medications., PACU/Recovery 1153 (Given - Provid er: Amena Guevara RN)1158 (Given - Provider: Amena Guevara RN)1208 (Given - Provider: Amena Guevara RN)1217 (Given - Provider: Amena Guevara RN) fentaNYL (SUBLIMAZE) injection 25-50 mcg 25-50 mcg, Intravenous, [id number], Pain, Procedure, Starting on Wed03/06/25 at 0939, Until Wed03/06/25 at 151, For 2 doses, As directed by anesthesiologist, Pre-op HYDROmorphone (DILAUDID) injection 0.25 mg 0.25 mg, Intravenous, Q10MIN PRN, Pain, The immediate postop period when longer acting agent is desired, Starting on Wed03/06/25 at 0928, Until Wed03/06/25 at 1519, Use hydromorphone if fentanyl is not adequately managing pain. May use fentanyl for breakthrough pain in conjunction with hydromorphone dosing. Maximum cumulative dose is 4 mg in PACU, call anesthesia if additional or greater doses needed. For patients with a regional, spinal, or local anesthetic, may give for anticipated pain as the anesthetic wears off., PACU/Recovery meperidine (DEMEROL) injection 12.5 mg 12.5 mg, Intravenous, [id number], Shivering, Starting on Wed03/06/25 at 0928, Until Wed03/06/25 at 151, For 2 doses, Maximum cumulative dose is 25 mg. Do not give to patients receiving MAO inhibitors (e.g. phenelzine (NARDIL), tranylcypromine (PARNATE), selegiline (ELDEPRYL))., PACU/Recovery midazolam (VERSED) injection 1-2 mg 1-2 mg, Intravenous, [id number], Sedation, Anxiety, Procedure, Starting on Wed03/06/25 at 0939, Until Wed03/06/25 at 1518, As directed by anesthesiologist MAX Dose 2mg, Pre-op naloxone (NARCAN) injection 0.04 mg(Linked Group 1) 0.04 mg, Intravenous, Q2MIN PRN, Opioid Reversal, Non-Emergent Opioid Reversal (Respiratory Rate less than 8 breaths per minute or difficult to arouse), Starting on Wed03/06/25 at 0939, Until Wed03/06/25 at 1518, Dilution Instructions: Dilute 1 mL of 0.4 mg/mL naloxone vial into 9 mL of normal saline to make a final concentration of 0.04 mg/mL. Discard dose if not used within 1 hour. Use 1 mL of diluted 0.04 mg/mL strength slow IV push over 1 minute. Give first dose, notify practitioner, and continue to observe. Repeat for up to 5 doses per episode until patient is arousable and can take deep breaths. If no improvement in respiratory rate or remains difficult to arouse notify practitioner for additional orders. , PACU (only) naloxone (NARCAN) injection 0.4 mg(Linked Group 1) 0.4 mg, Intravenous, Q2MIN PRN, Opioid Reversal, Emergent Opioid Reversal (Respiratory Rate less than 6 breaths per minute or unresponsive to physical stimulation), Starting on Wed03/06/25 at 0939, Until Wed03/06/25 at 151, Give first dose, notify practitioner, and continue to observe. Repeat for up to 5 doses per episode until patient is responsive to physical stimulation and can take deep breaths. , PACU (only) ondansetron (ZOFRAN) injection 4 mg 4 mg, Intravenous, Q4H PRN, Nausea, Vomiting, Starting on Wed03/06/25 at 0928, Until Wed03/06/25 at 1519, If multiple medications are ordered for nausea or vomiting - administer in the following priority based on medications ordered, effectiveness and availability: ondansetron (ZOFRAN) > prochlorperazine (COMPAZINE) > diphenhydrAMINE (BENADRYL) > hydrOXYzine HCl (VISTARIL)> ePHEDrine > scopolamine (TRANSDERM-SCOP)., PACU/Recovery traMADol (ULTRAM) tablet 50-100 mg 50-100 mg, Oral, Q6H PRN, Pain, Starting on Wed03/06/25 at 1205, Until Wed03/06/25 at 1519, PACU & Post-op 1205 (Given - Provid er: Amena Guevara RN) Linked Groups Order Group 1: naloxone (NARCAN) injection 0.4 mgJump to med 0.4 mg, Intravenous, Q2MIN PRN, Opioid Reversal, Emergent Opioid Reversal (Respiratory Rate less than 6 breaths per minute or unresponsive to physical stimulation), Starting on Wed03/06/25 at 0939, Until Wed03/06/25 at 1519, Give first dose, notify practitioner, and continue to observe. Repeat for up to 5 doses per episode until patient is responsive to physical stimulation and can take deep breaths. , PACU (only) Or naloxone (NARCAN) injection 0.04 mgJump to med 0.04 mg, Intravenous, Q2MIN PRN, Opioid Reversal, Non-Emergent Opioid Reversal (Respiratory Rate less than 8 breaths per minute or difficult to arouse), Starting on Wed03/06/25 at 0939, Until Wed03/06/25 at 151, Dilution Instructions: Dilute 1 mL of 0.4 mg/mL naloxone vial into 9 mL of normal saline to make a final concentration of 0.04 mg/mL. Discard dose if not used within 1 hour. Use 1 mL of diluted 0.04 mg/mL strength slow IV push over 1 minute. Give first dose, notify practitioner, and continue to observe. Repeat for up to 5 doses per episode until patient is arousable and can take deep breaths. If no improvement in respiratory rate or remains difficult to arouse notify practitioner for additional orders. , PACU (only) documented in this encounter Care Teams Deputy Commonwealth'S Attorney Relationship Specialty Start Date End Date Unassigned, Provider [address] [place] [address] PCP - General 12/18/00 documented as of this encounter
--- OUTSIDE RECORDS SUMMARY | 2025-03-06 10:30 | XMS_ITS | Encounter Summary ---
Author Organization [employer] Address [address] [place] [address] Care Team Providers Care Nut Cracker Name Role Phone Unassigned, Provider Primary Care Provider Unava ilable Reason for Visit * Auth/Cert (Routine) Specialty Diagnoses / Procedures Referred By Anni majano Referred To Contact Diagnoses Loose body in right ankle Procedures ARTHROSCOPY ANKLE WITH DEBRIDEMENT Referral ID Status Reason Start Date Expiration Date Visits Re quested Visits Authorized [id number] 1 1 Encounter Details Date Type Department Care Team (Late st Contact Info) Description 03/06/2025 10:30 AM CDT - 03/06/2025 12:10 PM CDT Surgery [facility] [address] [place], [place] [id number] Hung Hale MD [address] [facility] [address] ARTHROSCOPY ANKLE WITH EXTENSIVE DEBRIDEMENT Social History Tobacco Use Types Packs/Day Years [...] Sign Reading Time Taken Comments Blood Pressure 100/79 03/06/2025 12:10 PM CDT Pulse 67 03/06/2025 12:10 PM CDT Temperature 36.2 C (97.1 F) 03/06/2025 11:49 AM CDT Respiratory Rate 16 03/06/2025 12:10 PM CDT Oxygen Saturation 95% 03/06/2025 12:10 PM CDT Inhaled Oxygen Concentration - - [...] Info) Description 04/16/2025 9:00 AM CDT Appointment [facility] [address] [place] [address] Hung Hale MD [address] [place] [address] Scheduled Procedures Name Priority Associated Diagnoses Date/Ti [...] Diagnosis Loose body in right ankle- Primary Loose body in right ankle documented in this encounter Admitting Diagnoses Diagnosis [...] (SUBLIMAZE) injection 25 mcg 25 mcg, Intravenous, [id number], Pain, the immediate postop period when longer acting agent is desired, Starting on Wed03/06/25 at 0928, Until Wed03/06/25 at 1519, Use fentanyl as first line short acting [...] (SUBLIMAZE) injection 25-50 mcg 25-50 mcg, Intravenous, [id number], Pain, Procedure, Starting on Wed03/06/25 at 0939, [...] (DEMEROL) injection 12.5 mg 12.5 mg, Intravenous, [id number], Shivering, Starting on Wed03/06/25 at 0928, Until Wed03/06/25 at 151, For 2 doses, Maximum cumulative dose is 25 mg. Do not give to patients receiving MAO inhibitors (e.g. phenelzine (NARDIL), tranylcypromine (PARNATE), selegiline (ELDEPRYL))., PACU/Recovery midazolam (VERSED) injection 1-2 mg 1-2 mg, Intravenous, [id number], Sedation, Anxiety, Procedure, Starting on Wed03/06/25 at [...] ABISAI)1145 (Anesthesia Fluid - Provider: Majo Lim APRNABISAI)1519 (Due: Order Ending - Provider: Inpatient Template [facility] - Comment: [Order ends at this time. Document the following action when infusion is complete: Infused]) PRN Medication Order 03/04/2025 03/05/2025 03/06/2025 BUPivacaine PF (SENSORCAINE) 0.5% injection ONCE PRN, Starting on Wed03/06/25 at 1100, Until Wed03/06/25 at 1519, Intra-op 1100 (Given - Provid er: Hung Hale MD) fentaNYL (SUBLIMAZE) injection 25 mcg 25 mcg, Intravenous, [id number], Pain, the immediate postop period when longer acting agent is desired, Starting on Wed03/06/25 at 0928, Until Wed03/06/25 at 1518, Use fentanyl as first line short acting [...] (SUBLIMAZE) injection 25-50 mcg 25-50 mcg, Intravenous, [id number], Pain, Procedure, Starting on Wed03/06/25 at 0939, [...] (DEMEROL) injection 12.5 mg 12.5 mg, Intravenous, [id number], Shivering, Starting on Wed03/06/25 at 0928, Until Wed03/06/25 at 151, For 2 doses, Maximum cumulative dose is 25 mg. Do not give to patients receiving MAO inhibitors (e.g. phenelzine (NARDIL), tranylcypromine (PARNATE), selegiline (ELDEPRYL))., PACU/Recovery midazolam (VERSED) injection 1-2 mg 1-2 mg, Intravenous, [id number], Sedation, Anxiety, Procedure, Starting on Wed03/06/25 at [...] Wed03/06/25 at 0928, Until Wed03/06/25 at 151, If multiple medications are ordered for nausea or vomiting - administer in the following priority based on medications ordered, effectiveness and availability: ondansetron (ZOFRAN) > prochlorperazine (COMPAZINE) > diphenhydrAMINE (BENADRYL) > hydrOXYzine HCl (VISTARIL)> ePHEDrine > scopolamine (TRANSDERM-SCOP)., PACU/Recovery traMADol (ULTRAM) tablet 50-100 mg 50-100 mg, Oral, Q6H PRN, Pain, Starting on Wed03/06/25 at 1205, Until Wed03/06/25 at 151, PACU & Post-op 1205 (Given - Provid [...] (only) documented in this encounter Care Teams Nut Cracker Relationship Specialty Start Date End Date Unassigned, Provider [address] [place] [address] PCP - General 12/18/00 documented as of this encounter
--- OUTSIDE RECORDS SUMMARY | 2025-03-06 10:39 | XMS_ITS | Encounter Summary ---
Author Organization [employer] Address [address] [place] [address] Care Team Providers Care Assembler Body Name Role Phone Unassigned, Provider Primary Care Provider Unava ilable Encounter Details Date Type Department Care Team (Late st Contact Info) Description 03/06/2025 10:39 AM CDT Anesthesia Event [facility] [address] [place] [address] Singh Quintanilla MD [address] [place] [address] Anesthesia Record Procedure Summary Procedure Name Responsible Anesthesiologist Anesthesia Start Time Anesthesia Stop Time ARTHROSCOPY ANKLE WITH EXTENSIVE DEBRIDEMENT (Right: Ankle) Singh Quintanilla MD 03/06/25 1039 03/06/25 1149 Events Date Time Event Comment 03/06/2025 1039 1039 An Start 1040 An Start Data 1040 MD/DO Present 1043 An Induction 1045 An LMA 1058 An Tourn Inflated 1126 MD/DO Present 1141 MD/DO Present 1142 An Oxygen Mask Spontaneous r espirations with adequate air exchange. 1145 an stop data 1149 Care Handoff Note I discusse d with the receiving nurse and we: 1) Identified the patient, marion family member(s) or patient surrogate 2) Identified the responsible practitioner 3) Reviewed the pertinent medical history 4) Discussed the surgical/procedure course 5) Reviewed intra-op anesthesia management and issues during anesthesia 6) Set expectations for the post-procedure period 7) Allowed opportunity for questions and acknowledgement of understanding of report Electronically signed by Majo Lim, GLOBAL IMPLEMENTATION MANAGER, BRICK DROPPER 1149 An [facility] transferre d. Meds Name Total midazolam 2 mg/2 mL injection (aka VERSE D) 2 mg FENTanyl injection (aka SUBLIMAZE) 100 m cg lidocaine 2% PF injection aka (XYLOCAINE ) 100 mg propofol 10 mg/mL (aka diPRIvan) 200 mg propofol 10 mg/mL for procedural sedatio n (aka diPRIvan) 482.21 mg glycopyrrolate injection (aka ROBINUL) 0 .2 mg ondansetron injection (aka ZOFRAN) 4 mg dexamethasone 4 mg/mL injection (aka DEC ADRON) 4 mg ketorolac 15 mg/mL injection (TORADOL) 1 5 mg ceFAZolin (ANCEF) 2 g in sodium chloride 0.9 % 50 mL IVPB 2 g dexmedeTOMIDine (PRECEDEX) 20 mcg/5 mL ( 4 mcg/mL) injection 8 mcg lactated ringers infusion 500 mL * Agents Name 02 Delivery Device O2 N2O Air Nitrous Oxide () * Blood No blood administrations on file. Lines, Drains, and Airways Type Details Placement Removal Peripheral IV Placement Date: 03/06/25; Placement Time: 0955; Pre-existing: No; Inserted by?: RN; Size (Gauge): 20 G; Orientation: Left; Site Prep: Alcohol; Local Anesthetic: None; Insertion attempts: 1; Blood draw with insertion?: no; Patient Tolerance: Tolerated well; Removal Date: 03/06/25; Removal Time: 1258; Removal Reason: Per Protocol; Catheter Tip: Intact 03/06/25 0955 by Debby Kelly RN 03/06/25 1258 by Amena Guevara RN LMA Placement Date: 03/06/25; Placement Time: 1045; Placed By: BRICK DROPPER; Induction Type: Pre-O2, IV; Airway masking: Not attempted; Size (mm): 4; Placement details: Prepped and lubricated, Placed with ease; Difficulty: Easy, Atraumatic; Placement verification: BBSE, Positive EtCO2; Teeth and lips: Unchanged; Airway emergence: Following commands, Opening eyes, Spontaneous respirations, Adequate air exchange; Removal Date: 03/20/25; Removal Time: 1319; Transferred with Oxygen: Yes 03/06/25 1045 by Mee Bowden APRN, BRICK DROPPER 03/20/25 1319 by Carolynn, Pamue Incision/Surgical Site 03/06/25; 1059; #1; No; Ankle; Anterior, Right; 03/20/25; 1319 03/06/25 1059 by Cara Carrillo RN 03/20/25 1319 by Carolynn, Simona documented in this encounter Social History Tobacco Use Types Packs/Day [...] on file documented as of this encounter Miscellaneous Notes * Anesthesia Postprocedure Evaluation - Singh Quintanilla MD - 03/06/2025 12:18 PM CDT [facility] Post-op Note Patient: Juno Cunha Post-Op Diagnosis: Pre-Op Diagnosis Codes: * Loose body in right ankle [M24.071] Procedures performed: ARTHROSCOPY ANKLE WITH EXTENSIVE DEBRIDEMENT (Right: Ankle) Anesthesia Type: General Post-op vital signs: Vitals Value Taken Time BP 100/79 03/06/25 1210 Temp 36.2 ??C (97.1 ??F) 03/06/25 1149 Pulse 67 03/06/25 1210 Resp 16 03/06/25 1210 SpO2 95 % 03/06/25 1210 Pain Assessment Preferred Pain Scale: number (Numeric Rating Pain Scale) Last recorded pain score: 8 Post-op assessment: Patient location: PACU Airway Status: Patent Cardiovascular function: Satisfactory Hydration status: Satisfactory PONV: None Level of Consciousness: Awake Fully Participates Postop Assessment: Patient tolerated procedure well. Electronically signed by: Singh Quintanilla MD 03/06/2025 12:18 PM * Anesthesia Preprocedure Evaluation - Singh Quintanilla MD - 03/06/2025 9:29 AM CDT [facility] An[facility] Pre-op Evaluation Procedure: ARTHROSCOPY ANKLE WITH DEBRIDEMENT, Right HPI: 59 y.o. old male. Pre-Op Diagnosis Codes: * Loose body in right ankle [M24.071] No Known Allergies History reviewed. No pertinent past medical history. Patient Active Problem List Diagnosis ??? Closed displaced intraarticular fracture of right calcaneus ??? Loose body in right ankle Past Surgical History: Procedure Laterality Date ??? APPENDECTOMY ??? BACK SURGERY x2 ??? bone spur Right Foot ??? Calcaneal fracture Right 11/2024 Outpatient Medications as of 03/06/2025 Medication Sig ??? VENTOLIN HFA 108 (90 Base) MCG/ACT inhaler 1 Puff 4 times daily as needed. Facility-Administered Medications as of 03/06/2025 Medication Dose Route Frequency ??? fentaNYL (SUBLIMAZE) injection 25 mcg 25 mcg Intravenous Q5MIN PRN ??? HYDROmorphone (DILAUDID) injection 0.25 mg 0.25 mg Intravenous Q10MIN PRN ??? meperidine (DEMEROL) injection 12.5 mg 12.5 mg Intravenous Q5MIN PRN ??? ondansetron (ZOFRAN) injection 4 mg 4 mg Intravenous Q4H PRN Labs: No results found for: SODIUM, K, CHLORIDE, CO2, BUN, CREATININE, GLUCOSE Lab Results Component Value Date/Time WBC 9.2 11/17/2024 02:22 PM HGB 14.7 11/17/2024 02:22 PM HCT 43.7 11/17/2024 02:22 PM PLTS 353 11/17/2024 02:22 PM No results found for: INR Blood Bank: No results found for: ABO, ABSCR EKG: No results found for this or any previous visit. Physical Exam: There were no vitals taken for this visit. Assessment/Plan: Review of Systems Patient does not have GERD. Patient is not a current smoker. Patient is a former smoker. The patient reports alcohol use. Patient denies any recent URI. History of PONV: No. History of motion sickness: No. Patient denies any personal or family history of anesthesia complications. NPO Status: Acceptable. Exam Mental Status: Alert and oriented. Mallampati score: I (One). Mouth opening: Normal Thyromental Distance: > 3 finger breadths and Normal Neck Extension: Full Neck Circumference > 40 cm?: No Previous airway assessment: No prior intubations. Current airway assessment:Normal Dentition: Age appropriate. Cardiac Exam: Regular rate and rhythm. Respiratory Exam: Breath sounds clear to auscultation Assessment ASA Status: 2 . Plan Anesthesia type: General and LMA Induction: Propofol Maintenance: TIVA PONV Risk Score Adult: 1 PONV Prophylaxis (planned): Decadron and Ondansetron Anesthetic plan, risks, benefits and alternatives discussed with the patient who agrees to the anesthesia treatment plan. H&P Reviewed and Patient examined, no change observed IV access Antibiotics per surgery Electronically signed by: Singh Quintanilla MD 03/06/2025 9:29 AM documented in this encounter Plan of Treatment Upcoming Encounters Date Type Department Care Team (Late st Contact Info) Description 04/16/2025 9:00 AM CDT Appointment [facility]opa[facility]ics & [facility] Medicine [address] [place] [address] Hung Hale MD [address] [place], [place] [address] Scheduled Procedures Name Priority Associated Diagnoses Date/Ti me ARTHROSCOPY ANKLE Loose body in right ankle OPEN REDUCTION INTERNAL FIXA TION CALCANEUS FRACTURE Closed displaced intra-articular fracture of right calcaneus, initial encounter documented as of this encounter Visit Diagnoses Not on filedocumented in this encounter Administered Medications Inactive Administered Medications - up to 3 most recent administrations Medication Order MAR Action Action Date Dose Rate Site ceFAZolin (ANCEF) 2 g in sodium chloride 0.9 % 50 mL IVPB 2 g, Intravenous, Administer over 30 Minutes, [...] hours after initial dose until incision closed., Pre-opIndications:Surgical Prophylaxis Started 03/06/2025 10:48 AM CDT 2 g dexAMETHasone (DECADRON) injection Intravenous, Starting on Wed03/06/25 at 1043, Until Wed03/06/25 at 1149 Given 03/06/2025 10:43 AM CDT 4 mg dexmedeTOMIDine (PRECEDEX) 20 mcg/5 mL (4 mcg/mL) injection Intravenous, Starting on Wed03/06/25 at 1057, Until Wed03/06/25 at 1149 Given 03/06/2025 10:57 AM CDT 8 mcg fentaNYL (SUBLIMAZE) injection Intravenous, Starting on Wed03/06/25 at 1043, Until Wed03/06/25 at 1149 Given 03/06/2025 10:43 AM CDT 100 mcg glycopyrrolate (ROBINUL) injection Intravenous, Starting on Wed03/06/25 at 1043, Until Wed03/06/25 at 1149 Given 03/06/2025 10:43 AM CDT 0.2 mg ketorolac (TORADOL) injection Intravenous, Starting on Wed03/06/25 at 1134, Until Wed03/06/25 at 1149 Given 03/06/2025 11:34 AM CDT 15 mg lactated ringers infusion Intravenous, at 30 mL/hr, CONTINUOUS, Starting on Wed03/06/25 at 1000, Pre-op Started 03/06/2025 10:39 AM CDT Started 03/06/2025 9:55 AM CDT 30 mL/hr lidocaine PF (XYLOCAINE) 2 % injection Intravenous, Starting on Wed03/06/25 at 1043, Until Wed03/06/25 at 1149 Given 03/06/2025 10:43 AM CDT 100 mg midazolam (VERSED) injection Intravenous, Starting on Wed03/06/25 at 1039, Until Wed03/06/25 at 1149 Given 03/06/2025 10:39 AM CDT 2 mg ondansetron (ZOFRAN) injection Intravenous, Starting on Wed03/06/25 at 1043, Until Wed03/06/25 at 1149 Given 03/06/2025 10:43 AM CDT 4 mg propofol (DIPRIVAN) 10 mg/mL injection Intravenous, Starting on Wed03/06/25 at 1043, Until Wed03/06/25 at 1149 Given 03/06/2025 10:43 AM CDT 200 mg propofol (DIPRIVAN) 10 mg/mL injection Intravenous, Starting on Wed03/06/25 at 1045, Until Wed03/06/25 at 1149 Rate/Dose Change 03/06/2025 10:59 AM CDT 125 mcg/kg/min 62.625 mL/hr Started 03/06/2025 10:45 AM CDT 100 mcg/kg/min 50.1 mL/ hr documented in this encounter Care Teams Assembler Body Relationship Specialty Start Date End Date Unassigned, Provider [address] [place] [address] PCP - General 12/18/00 documented as of this encounter
--- OUTSIDE RECORDS SUMMARY | 2025-03-19 08:55 | XMS_ITS | Encounter Summary ---
Author Organization [employer] Address [address] [place] [address] Care Team Providers Care Retail Customer Service Representative Name Role Phone Unassigned, Provider Primary Care Provider Unava ilable Reason for Visit * Procedure/Equipment (Routine) - Incomplete Specialty Diagnoses / Procedures Referred By Contac t Referred To Contact Diagnoses Aftercare following surgery of the musculoskeletal system Procedures XR Ankle Rt 3 Views Hung Hale MD [address] [place] [address] Phone: tel: fax: Referral ID Status Reason Start Date Expiration Date V isits Requested Visits Authorized [id number] Incomplete 03/19/2025 06/18/2026 1 1 Encounter Details Date Type Department Care Team (Latest Contact Info) Description 03/19/2025 8:55 AM CDT Ancillary Procedure [facility] [address] Radiology [address] [place] [address] Hung Hale MD [address] [place] [address] Aftercare following surgery of the musculoskeletal system Social History Tobacco Use Types Packs/Day Years [...] 04/16/2025 9:00 AM CDT Appointment [facility] Orthopaedics & Sports Medicine [address] [place] [phone] Hung Hale MD [address] [place], [place] [address] Scheduled Procedures Name Priority Associated Diagnoses Date/Ti me ARTHROSCOPY ANKLE Loose body in right ankle OPEN REDUCTION INTERNAL FIXA TION CALCANEUS FRACTURE Closed displaced intra-articular fracture of right calcaneus, initial encounter documented as of this encounter Procedures Procedure Name Priority Date/Time Associated Diagnosis Comments XR ANKLE RT 3 VIEWS Routine 03/19/2025 9:01 AM CDT Aftercare following surgery of the musculoskeletal system documented in this encounter Results * XR Calcaneus Rt 2+ Views (03/19/2025 9:02 AM CDT) Anatomical Region Laterality Modality Lower Extremity, Foot, Foot & Ankle Digital Radiography 03/19/2025 8:52 AM CDT Narrative 03/19/2025 10:16 AM CDT COMPARISON: 02/16/2025 FINDINGS: No evidence of acute fracture or malalignment. Stable appearance of calcaneal fracture ORIF. No evidence of a hardware complication. Mild tibiotalar osteoarthritis. Interval resection of a previously seen anterior tibiotalar osteophyte. Moderate posterior subtalar osteoarthritis. Procedure Note Steven Puente MD - 03/19/2025 COMPARISON: 02/16/2025 FINDINGS: No evidence of acute fracture or malalignment. Stableappearance of calcaneal fracture ORIF. No evidence of a hardwarecomplication. Mild tibiotalar osteoarthritis. Interval resection of apreviously seen anterior tibiotalar osteophyte. Moderate posteriorsubtalar osteoarthritis. us Hung Hale MD RAD GD Final Res ult * XR Ankle Rt 3 Views (03/19/2025 9:01 AM CDT) Anatomical Region Laterality Modality Lower Extremity, Ankle, Foot & Ankle Digital Radiography 03/19/2025 8:52 AM CDT Narrative 03/19/2025 10:16 AM CDT COMPARISON: 02/16/2025 FINDINGS: No evidence of acute fracture or malalignment. Stable appearance of calcaneal fracture ORIF. No evidence of a hardware complication. Mild tibiotalar osteoarthritis. Interval resection of a previously seen anterior tibiotalar osteophyte. Moderate posterior subtalar osteoarthritis. Procedure Note Steven Puente MD - 03/19/2025 COMPARISON: 02/16/2025 FINDINGS: No evidence of acute fracture or malalignment. Stableappearance of calcaneal fracture ORIF. No evidence of a hardwarecomplication. Mild tibiotalar osteoarthritis. Interval resection of apreviously seen anterior tibiotalar osteophyte. Moderate posteriorsubtalar osteoarthritis. us Hung Hale MD RAD GD Final Res ult documented in this encounter Visit Diagnoses Diagnosis Aftercare following surgery of the musculoskeletal system Aftercare following surgery of the musculoskeletal system, NEC Aftercare following surgery of the musculoskeletal system Aftercare following surgery of the musculoskeletal system, NEC documented in this encounter Care Teams Retail Customer Service Representative Relationship Specialty Start Date End Date Unassigned, Provider [address] [place] [address] PCP - General 12/18/00 documented as of this encounter
--- OUTSIDE RECORDS SUMMARY | 2025-03-19 09:00 | XMS_ITS | Encounter Summary ---
Author Organization [facility] Address [address] [place] [address] Care Team Providers Care Quality Assurance Practice Manager Name Role Phone Unassigned, Provider Primary Care Provider Unava ilable Reason for Referral * Therapies (Routine) - New Request Specialty Diagnoses / Procedures Referred By Anni majano Referred To Contact Diagnoses Aftercare following surgery of the musculoskeletal system Loose body in right ankle Hung Hale MD [address] [facility] [place] [address] Phone: tel: fax: Referral ID Status Reason Start Date Expiration Date V isits Requested Visits Authorized [id number] New Request 03/19/2025 03/19/2026 1 1 Scheduling Instructions Your clinician has recommended an appointment with Physical Therapy and Rehabilitation Services. You can quickly schedule your appointment by signing in to your online account at [email or web address] or through the text message you may have received. You can also make an appointment by calling [phone]. We suggest you call your health insurance company about your coverage and benefits for this appointment. Question Answer Appointment Urgency? Non-Urgent Eval and Treat Eval and Treat Goals Range of Motion, Strength, Pain Control Exercises and Modalities PROM, AROM, AAROM, Strengthening Frequency 1-2 x per week for 6 weeks Comments No restrictions. Work on ROM. Other modalities as needed. * Procedure/Equipment (Routine) - Incomplete Specialty Diagnoses / Procedures Referred By Anni majano Referred To Contact Diagnoses Aftercare following surgery of the musculoskeletal system Procedures XR Calcaneus Rt 2+ Views Hung Hale MD [address] [place] [address] Phone: tel: fax: Referral ID Status Reason Start Date Expiration Date V isits Requested Visits Authorized [id number] Incomplete 03/19/2025 06/18/2026 1 1 * Procedure/Equipment (Routine) - Incomplete Specialty Diagnoses / Procedures Referred By Contac t Referred To Contact Diagnoses Aftercare following surgery of the musculoskeletal system Procedures XR Ankle Rt 3 Views Hung Hale MD [address] [place] [address] Phone: tel: fax: Referral ID Status Reason Start Date Expiration Date V isits Requested Visits Authorized [id number] Incomplete 03/19/2025 06/18/2026 1 1 Reason for Visit * Reason Comments POST-OP,EXAM Right ankle scope Encounter Details Date Type Department Care Team (Late st Contact Info) Description 03/19/2025 9:00 AM CDT Office Visit [facility] Orthopaedics & Sports Medicine [address] [place] [address] Hung Hale MD [address] [place] [address] Aftercare following surgery of the musculoskeletal system (Primary Dx); S/P ORIF (open reduction internal fixation) fracture; Closed displaced intra-articular fracture of right calcaneus with routine healing, subsequent encounter; Loose body in right ankle Social History Tobacco Use Types Packs/Day Years [...] on file documented as of this encounter Patient Instructions * Patient Instructions* Keenan Acharya OA - 03/19/2025 9:00 AM CDT Thank you for choosing [facility] for your health care visit today. Dr. Hung Hale MD Orthopaedic Surgeon/Foot & Ankle Specialist Surgery [phone] Yvette Recruitment Manager (FMLA, Disability Paperwork) Medication Requests: Prescriptions are not filled on weekends or on weekdays after 3:00 PM. Advanced Imaging Scheduling: To schedule advanced imaging including MRI's, CT Scans, Ultrasounds and Fluoroscopic guided injections at a [facility] location please call [phone]. Medication Requests: Prescriptions are not filled on weekends or on weekdays after 3:00 PM. For all medication refills: Request a refill using [employer] or contact your pharmacy. [facility] [employer] [address] [place], [place] [address] (Phone) Email: [email or web address] What is Know Your Cost? Know Your Cost is a service for patients and patient/members to call and receive personalized cost information and estimates across our care group. The phone number is (COST) Wednesday - Wednesday 8 AM to 5 PM Release of Information: Radiology/Imaging Health Information Management [address] [place] [address] [place] [address] (Phone) [phone] (Phone) VMob documented in this encounter Progress Notes * Hung Hale MD - 03/19/2025 9:00 AM CDT FOLLOW-UP DATE OF SERVICE: 03/19/25 CC: Chief Complaint Patient presents with POST-OP,EXAM Right ankle scope DOI: 11/07/2024 Injury: Right intra-articular calcaneal fracture DOS: 11/21/2024 Surgery: Right intra-articular calcaneal fracture ORIF DOS: 03/06/2025 Surgery: Right ankle arthroscopy and debridement SUBJECTIVE: Juno Cunha is a 59 y.o. male who presents to clinic today for follow-up. 2 weeks out. Has been weight-bearing as tolerated and using a cane. He is working on ankle range of motion. Still notes stiffness with dorsiflexion and plantar flexion. Has no pain to calcaneal compression. PHYSICAL EXAM: On physical examination the patient appears the stated age, is in no acute distress There is appropriate and non-labored breathing - Incision is healing well. - Moderate swelling. - Pain in the anterior ankle with forced plantar flexion. Describes it as a stretching sensation. - Motor: Fires EHL / FHL. Ankle dorsiflexion / planar flexion. Inversion / eversion - Sensation: Decreased sensation to the dorsum of the foot - Vascular: palpable dorsalis peds and posterior tibial artery IMAGING: XR of the right ankle on 03/19 and independently reviewed by me today: Absence of distal anterior tibial osteophyte. Hardware intact. The vertical fracture noted at the inferior aspect of the angle of Gissane has not displaced any further. Shows signs of healing as well. IMPRESSION: Juno Cunha is a 59 y.o. male with the followin. Right intra-articular calcaneal fracture ORIF, 4 months out 2. Right ankle arthroscopy and debridement, 2 weeks out PLAN: - We discussed the physical and imaging findings with the patient and how this relates the patient's symptomology. Discussed with the patient that I would like him to continue working on range of motion exercises. No restrictions at this time. Discussed trialing physical therapy but patient states that he knows exercises at home and like to try home exercise on his own 1st. Discussed that some ofthe sensation that he is feeling is likely postoperative and from swelling. We will continue to monitor over the next several weeks. - Follow-up: 6 weeks from surgery with x-rays of right calcaneus and ankle Patient verbalized understanding of above mentioned plan and is amenable. All questions were answered in detail. Patient verbalized understanding that they should return sooner or call if there are any questions or concerns. 20 minutes of time was spent on the care of the patient including chart and imaging review, time inthe room with the patient and documentation. This note contains medical terminology which is meant for communication between health care physicians and providers. Please note that vocabulary/phrasing/abbreviations may not carry the same definitions as they would in normal conversational speech. Additionally voice recognition software was usedto generate this note. As a result, wrong word or '[id number]' substitutions may have occurred due to the inherent limitations of voice recognition software. There may be errors in the script that have gone undetected. Please consider this when interpreting information found in this chart. Hung Hale MD Orthopedic, Foot and Ankle Surgery documented in this encounter Plan of Treatment Upcoming Encounters Date Type Department Care Team (Late st Contact Info) Description 04/16/2025 9:00 AM CDT Appointment [facility] Orthopaedics & Sports Medicine [address] [place] [address] Hung Hale MD [address] [facility] [address] [facility] [id number] Scheduled Procedures Name Priority Associated Diagnoses Date/Ti me ARTHROSCOPY ANKLE Loose body in right ankle OPEN REDUCTION INTERNAL FIXA TION CALCANEUS FRACTURE Closed displaced intra-articular fracture of right calcaneus, initial encounter Scheduled Referrals Name Type Priority Associated Diagnoses Orde r Schedule Physical Therapy Referral Routine Aftercare following surgery of the musculoskeletal system Loose body in right ankle Ordered: 03/19/2025 documented as of this encounter Results * XR Calcaneus Rt [...] seen anterior tibiotalar osteophyte. Moderate posteriorsubtalar osteoarthritis. Hung Hale MD RAD GD Final Res [...] Diagnosis Aftercare following surgery of the musculoskeletal system- Primary Aftercare following surgery of the musculoskeletal system, NEC S/P ORIF (open reduction internal fixation) fracture Closed displaced intra-articular fracture of right calcaneus with routine healing, subsequent encounter Loose body in right ankle Aftercare following surgery of the musculoskeletal system Aftercare following surgery of the musculoskeletal system, NEC Aftercare following surgery of the musculoskeletal system Aftercare following surgery of the musculoskeletal system, NEC documented in this encounter Care Teams Quality Assurance Practice Manager Relationship Specialty Start Date End Date Unassigned, Provider [address] [place] [address] PCP - General 12/18/00 documented as of this encounter
--- OUTSIDE RECORDS SUMMARY | 2025-03-19 09:05 | XMS_ITS | Encounter Summary ---
Author Organization [employer] Address [address] [place] [address] Care Team Providers Care Patient Transportation Driver Name Role Phone Unassigned, Provider Primary Care Provider Unava ilable Reason for Visit * Procedure/Equipment (Routine) - Incomplete Specialty Diagnoses / Procedures Referred By Contac t Referred To Contact Diagnoses Aftercare following surgery of the musculoskeletal system Procedures XR Calcaneus Rt 2+ Views Hung Hale MD [address] [place] [address] Phone: tel: fax: Referral ID Status Reason Start Date Expiration Date V isits Requested Visits Authorized [id number] Incomplete 03/19/2025 06/18/2026 1 1 Encounter Details Date Type Department Care Team (Latest Contact Info) Description 03/19/2025 9:05 AM CDT Ancillary Procedure [facility] [address] Radiology [address] [place] [address] Hung Hale MD [address] [address] [place] [address] Aftercare following surgery of the musculoskeletal system [...] Info) Description 04/16/2025 9:00 AM CDT Appointment [facility] Orthopaedics & Sports Medicine [address] [place] [phone] Hung Hale MD [address] [place], [place] [address] Scheduled Procedures Name Priority Associated Diagnoses Date/Ti me ARTHROSCOPY ANKLE Loose body in right ankle OPEN REDUCTION INTERNAL FIXA TION CALCANEUS FRACTURE Closed displaced intra-articular fracture of right calcaneus, initial encounter documented as of this encounter Procedures Procedure Name Priority Date/Time Associated Diagnosis Comments XR CALCANEUS RT 2+ VIEWS Routine 03/19/2025 9:02 AM CDT Aftercare following surgery of the [...] NEC documented in this encounter Care Teams Patient Transportation Driver Relationship Specialty Start Date End Date Unassigned, Provider [address] [place] [address] PCP - General 12/18/00 documented as of this encounter
--- OUTSIDE RECORDS SUMMARY | 2025-04-09 05:36 | XMS_ITS | Clinical Summary ---
Author Organization [facility] Address [address] [place] [address] Care Team Providers Care Customer Program Specialist Name Role Phone Sergio Germain MD [...] by automated process. 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
--- OUTSIDE RECORDS SUMMARY | 2025-04-09 05:36 | XMS_ITS | Encounter Summary ---
Author Organization [employer] Address [address] [place] [address] Care Team Providers Care Precast Worker Name Role Phone Unassigned, Provider Primary Care Provider Unava ilable Encounter Details Date Type Department Care Team (Latest Contact Info) Description 03/06/2025 Orders Only HIM DEPARTMENT Provider, [place] [address] Social History Tobacco Use Types Packs/Day Years [...] Info) Description 04/16/2025 9:00 AM CDT Appointment [facility] Orthopaedics & Sports Medicine [address] [place] [address] Hung Hale MD [address] [facility] [place] [id number] Scheduled Procedures Name Priority Associated Diagnoses Date/Ti me ARTHROSCOPY ANKLE Loose body in right ankle OPEN REDUCTION INTERNAL FIXA TION CALCANEUS FRACTURE Closed displaced intra-articular fracture of right calcaneus, initial encounter documented as of this encounter Procedures Procedure Name Priority Date/Time Associated Diagnosis Comments EKG 03/06/2025 documented in this encounter Results * EKG (03/06/2025) us Interface Provider EKG Final Resu lt documented in this encounter Visit Diagnoses Not on filedocumented in this encounter Care Teams Precast Worker Relationship Specialty Start Date End Date Unassigned, Provider [address] [place] [address] PCP - General 12/18/00 documented as of this encounter
--- OUTSIDE RECORDS SUMMARY | 2025-04-09 05:36 | XMS_ITS | Encounter Summary ---
Author Organization [employer] Address [address] [place] [address] Care Team Providers Care Plastic Surgery Technician Name Role Phone Unassigned, Provider Primary Care Provider Unava ilable Encounter Details Date Type Department Care Team (Late st Contact Info) Description 02/22/2025 Notes/Orders [facility] Orthopaedics & Sports Medicine [address] [place] [phone] Hung Hale MD [address] [facility] [address] [place] [id number] Social History Tobacco Use Types Packs/Day Years [...] 04/16/2025 9:00 AM CDT Appointment [facility] Orthopaedics & Sports Medicine [address] [place] [phone] Hung Hale MD [address] [facility] [place] [id number] Scheduled Procedures Name Priority Associated Diagnoses Date/Ti me ARTHROSCOPY ANKLE Loose body in right ankle OPEN REDUCTION INTERNAL FIXA TION CALCANEUS FRACTURE Closed displaced intra-articular fracture of right calcaneus, initial encounter documented as of this encounter Visit Diagnoses Not on filedocumented in this encounter Care Teams Plastic Surgery Technician Relationship Specialty Start Date End Date Unassigned, Provider [address] [place] [address] PCP - General 12/18/00 documented as of this encounter
--- OUTSIDE RECORDS SUMMARY | 2025-04-09 05:36 | XMS_ITS | Encounter Summary ---
Author Organization [employer] Address [address] [place] [address] Care Team Providers Care Hospice Registered Nurse Name Role Phone Unassigned, Provider Primary Care Provider Unava ilable Encounter Details Date Type Department Care Team (Late st Contact Info) Description 03/05/2025 Notes/Orders [facility] Orth[facility] [place]Note 2] [address] [place] [address] Hung Hale MD [address] [facility] [address] [place] [address] Surgery, elective (Primary Dx) Social History Tobacco Use Types [...] Info) Description 04/16/2025 9:00 AM CDT Appointment [facility] Orthopaedics & Sports Medicine [address] [place] [phone] Hung Hale MD [address] [facility] [place] [address] Scheduled Procedures Name Priority Associated Diagnoses Date/Ti me ARTHROSCOPY ANKLE Loose body in right ankle OPEN REDUCTION INTERNAL FIXA TION CALCANEUS FRACTURE Closed displaced intra-articular fracture of right calcaneus, initial encounter documented as of this encounter Results * RINKU Arthroscopy Ankle Rt (03/06/2025 9:17 AM CDT) Anatomical Region Laterality Modality Lower Extremity, Ankle Endoscopy Narrative 03/06/2025 9:17 AM CDT These images were obtained during a surgical procedure. us Hung Hale MD RAD NON-REPORTABLES Final Result documented in this encounter Visit Diagnoses Diagnosis Surgery, elective- Primary Unspecified elective surgery for purposes other than remedying health states documented in this encounter Care Teams Hospice Registered Nurse Relationship Specialty Start Date End Date Unassigned, Provider [address] [place] [address] PCP - General 12/18/00 documented as of this encounter
--- OUTSIDE RECORDS SUMMARY | 2025-04-09 05:36 | XMS_ITS | Clinical Summary ---
Author Organization [employer] [facility] Address [address] [place] [address] Care Team Providers Care Child And Adolescent Therapist Name Role Phone Ananda Richardson MD Primary Care Provider [phone] Allergies Active Allergy Reactions Criticality Noted Date Comments Oxycodone-Acetaminophen Agitation 12/22/2010 moodiness Medications CPAPIndications:CLARE on CPAP cpap supplies with nasal mask 1 unit 8 Active albuterol HFA (Ventolin HFA) 90 mcg/actuation inhaler Inhale 1 Puff by mouth every 6 hours if needed. Active HYDROmorphone (Dilaudid) 2 mg tablet Take 2 mg by mouth every 3 hours if needed for Pain. Active HYDROcodone-acetami nophen (10-325 mg/tablet) Take 1 Tablet by mouth every 6 hours if needed. 5 Active penicillin v potassium (PEN-VEE K) 500 mg tablet Take 500 mg by mouth three times daily. 4 Active cyclobenzaprine (FLEXERIL) 10 mg tabletIndications:C losed displaced fracture of right calcaneus, unspecified portion of calcaneus, initial encounter Take 1 Tablet (10 mg) by mouth every 8 hours if needed for Muscle Spasm. 30 Tablet 11/21/2024 1:00 PM SOLVENT RECOVERER 5 Active ondansetron (ZOFRAN ODT) 4 mg disintegrating tabletIndications:C losed displaced fracture of right calcaneus, unspecified portion of calcaneus, initial encounter Place 1-2 Tablets (4-8 mg) on the tongue every 8 hours if needed for Nausea/Vomit ing. 20 Tablet 2 11/21/2024 1:00 PM SOLVENT RECOVERER 5 Active HYDROmorphone 2 mg tabletIndications:C losed displaced fracture of right calcaneus, unspecified portion of calcaneus, initial encounter Take 1-2 Tablets (2-4 mg) by mouth every 3 hours if needed for Pain. 30 Tablet 11/21/2024 1:00 PM SOLVENT RECOVERER 5 Active Active Problems Problem Noted Date Diagnosed Date Dysthymia 09/06/2018 Melancholy 02/15/2018 Smoker 02/15/2018 Chronic hepatitis C without hepatic coma 018 CLARE on CPAP 05/26/2013 Other ankle sprain and strain 11/19/2010 Immunizations Immunization Administration Dates Next Due Influenza, IIV4 09/06/2018 [...] Cigarettes 1.5 38.5 1 980 - 05/12/2018 Passive Smoke Exposure: Past Smokeless Tobacco: Never Alcohol Use Standard Drinks/Week Comments Yes 0 (1 standard drink = 0.6 oz pur e alcohol) PHQ-2 Answer Date Recorded PHQ-2 Score 0 08/23/2019 Sex and Gender Information Value Date Recorded Sex Assigned at Not on file Legal Sex Male 6:12 AM SOLVENT RECOVERER Gender Identity Not on file Sexual Orientation Not on file Obstetrics History Last Filed Vital Signs Vital Sign Reading Time Taken Comments Blood Pressure 119/76 11/21/2024 1:57 PM SOLVENT RECOVERER Pulse 65 11/21/2024 1:57 PM SOLVENT RECOVERER Temperature 36.1 C (97 F) 11/21/2024 12:43 PM SOLVENT RECOVERER Respiratory Rate 12 11/21/2024 1:57 PM SOLVENT RECOVERER Oxygen Saturation 94% 11/21/2024 1:57 PM SOLVENT RECOVERER Inhaled Oxygen Concentration - - Weight 87 kg (191 lb 11.2 oz) 11/21/2024 6:17 AM SOLVENT RECOVERER Height 172.7 cm (5' 8) 11/21/2024 6:17 AM SOLVENT RECOVERER Body Mass Index 29.15 11/21/2024 6:17 AM SOLVENT RECOVERER Plan of Treatment Health Maintenance Due Date Last Done Comments HIV for age 15-65 1980 Hepatitis B series for 19+ ( 1 of 3 - 19+ 3-dose series) 1984 Pneumococcal series for age 50+ (1 of 1 - PCV) 2015 Zoster (shingles) series for age 50+ (1 of 2) 2015 BMI (ht and wt on same day) for age 18+ 08/23/2020 08/23/2019, 02/21/2019, 09/06/2018, Additional history exists Depression screening for age 12+ 08/23/2020 08/23/20, 01/24/2018 Tetanus booster 03/26/2022 03/26/2012, 04/14/2000 Colonoscopy through age 75 03/14/2023 03/14/2018 Lipids for age 45-75 02/22/2024 02/21/2019, 02/16/20 18 COVID-19 vaccine series ( season) 2024 Influenza Vaccine (Season Ended) 2025 09/06/20 18 Hepatitis C screening for ag e 18-79 Completed 07/20/2003 Tdap Completed 03/26/2012 Medical Devices Implanted Type Area Ski Guide Device Identifier Shelf Expiration Date Model / Serial / Lot Bone 1-4mm 30cc [employer]onic Chips Canclls Frozen - [id number] Implanted:Qty: 1 on 11/21/2024 by Hung Hale MD at [facility] Right: Foot [employer] Spine/Ortho 07/26/2029 [id number] / [id number] / [id number] Screw Sm Joint 3.5x30mm Variax 2 Lock Titnm - [id number] Implanted:Qty: 1 on 11/21/2024 by Hung Hale MD at [facility] Right: Foot [employer] [id number] / / Screw Sm Joint 3.5x32mm Variax 2 Lock Titnm - [id number] Implanted:Qty: 8 on 11/21/2024 by Hung Hale MD at [facility] Right: Foot [employer] [id number] / / Plate Foot Variax Mesh Calcaneus - [id number] Implanted:Qty: 1 on 11/21/2024 by Hung Hale MD at [facility] Right: Foot [employer] [id number] / / Screw Sm Joint 3.5x36mm Variax 2 Lock Titnm - [id number] Implanted:Qty: 3 on 11/21/2024 by Hung Hale MD at [facility] Right: Foot [employer] [id number] / / Screw Sm Joint 3.5x24mm Variax 2 Bone - [id number] Implanted:Qty: 1 on 11/21/2024 by Hung Hale MD at [facility] Right: Foot [employer] [facility] [id number] / / Screw Sm Joint 3.5x40mm Variax 2 Bone - [id number] Implanted:Qty: 1 on 11/21/2024 by Hung Hale MD at [facility] Right: Foot [employer] [id number] / / Screw Sm Joint 3.5x38mm Variax 2 Bone - [id number] Implanted:Qty: 1 on 11/21/2024 by Hung Hale MD at [facility] Right: Foot [employer] [id number] / / Screw Sm Joint 3.5x28mm Variax 2 Bone - [id number] Implanted:Qty: 1 on 11/21/2024 by Hung Hale MD at [facility] Right: Foot [employer] [facility] [id number] / / Screw Sm Joint 3.5x34mm Variax 2 Lock Titnm - [id number] Implanted:Qty: 3 on 11/21/2024 by Hung Hale MD at [facility] Right: Foot [employer] [id number] / / Explanted Type Area Ski Guide Device Identifier Shelf Expiration Date Model / Serial / Lot Screw Sm Joint 3.5x38mm Variax 2 Lock Titnm - [id number] Explanted:Qty: 1 on 11/21/2024 at [facility] Right: Foot [employer] [facility] [id number] / / [id number] - [id number] Explanted:Qty: 1 on 11/21/2024 at [facility] Right: Foot [id number] / / Procedures Procedure Name Priority Date/Time Associated Diagnosis Comments LIPID PANEL W REFLEX MEASURED LDL Routine 02/21/2019 8:23 AM CDT Health care maintenance SCAN-COLONOSCOPY 03/14/2018 3:00 PM CDT from Last 3 Months or Most Recently Relevant to Health Maintenance Results * (ABNORMAL) LIPID PANEL W REFLEX MEASURED LDL (02/21/2019 8:23 AM CDT) CHOLESTEROL,TOTAL 200(H) 100 - 199 mg/dL 02/21/2019 2:09 PM CDT [facility] TRIGLYCERIDES 102 <150 mg/dL 02/21/2019 2:09 PM CDT [facility] HDL CHOLESTEROL 30(L) >40 mg/dL 9 2:09 PM CDT [facility] NON-HDL CHOLESTEROL 170(H) <145 mg/dl 02/21/2019 2:09 PM CDT [facility] CHOL/HDL RATIO 6.67(H) <4.50 02/21/2019 2:09 PM CDT [facility] LDL CHOLESTEROL 150(H) <=130 mg/dL 02/21/2019 2:09 PM CDT [facility] PROVIDER ORDERED STATUS FASTING 02/21/2019 2:09 PM CDT [facility] Blood BLOOD SPECIMEN / Unknown Venipuncture / Unknown 02/21/2019 8:23 AM CDT 02/21/2019 8:23 AM CDT us Chet DE [place] CHEMISTRY Final Resul t [facility] [address] [place] [address], [place] * SCAN-COLONOSCOPY (03/14/2018 3:00 PM CDT) Narrative Procedure Note Loco Al DO - 03/14/2018 2:01 PM CDT [facility] [address] [place] [address], [address], [place] [address] Patient Name: Juno Shepherd Gender: Male Exam Date: 03/14/2018 Visit Number: [id number] Age: 52 Years Date of : 1965 Attending MD: Loco Al DO Medical Record#: [id number] ----- Procedure: Colonoscopy Indications: Colorectal cancer screening [...] or Most Recently Relevant to Health Maintenance Insurance [place] [id number] Advance Directives * Full Code (Latest Code Status on File) Date Activated Date Inactivated Comments 11/21/2024 6:10 AM 11/21/2024 4:20 PM Question Answer Comments Code Status Discussion: Reviewed Preferences Care Teams Child And Adolescent Therapist Relationship Specialty Start Date End Date Ananda Richardson MD [address] [place] [address] PCP - General Family Practice 11/20/24
--- OUTSIDE RECORDS SUMMARY | 2025-04-09 05:36 | XMS_ITS | Clinical Summary ---
Author Organization [facility] Address [address] [place] [address] Care Team Providers Care Children Counselor Name Role Phone Unassigned, Provider Primary Care Provider Unava ilable Source Comments You are receiving this document as you are listed as the primary care provider,follow-up provider, or the patient has been referred to you for consultation.This is in compliance with the Medicare andMedicaid EHR Incentive Program,which states Providers who transition their patient to another setting of careor provider of care or refers their patient to another provider of care shouldprovide summary care record for each transition of care or referral. [employer] Allergies Active Allergy Reactions Criticality Noted Date Comments Oxycodone-Acetaminophen Other, see comments Agitation Medications VENTOLIN HFA 108 (90 Base) MCG/ACT inhaler 1 Puff 4 times daily as needed. 07/11/2024 Active traMADol (ULTRAM) 50 MG tablet Take 1-2 Tablets (50-100 mg) by mouth every 6 hours as needed for Pain for up to 10 days. 18 Tablet 03/06/2025 03/16/20 25 Active Problems Problem Noted Date Diagnosed Date Loose body in right ankle 02/16/2025 Closed displaced intraarticular fracture of righ t calcaneus 11/13/2024 Encounters Date Type Department Care Team Description 03/19/2025 9:05 AM CDT [facility] [address] Radiology [address] [place] [address] Hung Hale MD Aftercare following surgery of the musculoskeletal system 03/19/2025 9:00 AM CDT Office Visit [facility] [address] [place] [address] Hung Hale MD Aftercare following surgery of the musculoskeletal system (Primary Dx); S/P ORIF (open reduction internal fixation) fracture; Closed displaced intra-articular fracture of right calcaneus with routine healing, subsequent encounter; Loose body in right ankle 03/19/2025 8:55 AM CDT Ancillary Procedure [facility] [place] [address] Radiology [address] [place] [address] Hung aHle MD Aftercare following surgery of the musculoskeletal system 03/06/2025 10:39 AM CDT Anesthesia Event [facility] PERIOPERATIVE [address] [address] Singh Quintanilla MD 03/06/2025 10:30 AM CDT - 03/06/2025 12:10 PM CDT Surgery [facility] [address] [address] Hung Hale MD ARTHROSCOPY ANKLE WITH EXTENSIVE DEBRIDEMENT 03/06/2025 9:14 AM CDT - 03/06/2025 1:02 PM CDT Hospital Encounter [address] [address] Hung Hale MD Discharge Disposition: Home 03/06/2025 Orders Only HIM DEPARTMENT ProviderOswaldo MD 03/06/2025 Ancillary Procedure [facility] Ambulatory Surgery [address] [address] Hung Hale MD 03/05/2025 Notes/Orders [facility] Orthopedic [address] [address] Hung Hale MD Surgery, elective (Primary Dx) 03/01/2025 9:00 AM CDT Pre-Op Visit [place] [address] [facility] [address] [place] [address] Gilmer Su, EDITH Preop examination (Primary Dx); Ankle injury, right, subsequent encounter 02/22/2025 Notes/Orders [facility] [address] [place] [phone] Hung Hale MD 02/20/2025 Telephone [facility] [address] [place] [phone] Hung Hale MD Surgery, To Schedule; Orders Needed 02/16/2025 3:10 PM CDT Ancillary [facility] [address] [place] [phone] Hung Hale MD Aftercare following surgery of the musculoskeletal system; S/P ORIF (open reduction internal fixation) fracture; Closed displaced intra-articular fracture of right calcaneus with routine healing, subsequent encounter 02/16/2025 3:05 PM CDT Ancillary Procedure [facility] [address] [place] [phone] Hung Hale MD Aftercare following surgery of the musculoskeletal system; S/P ORIF (open reduction internal fixation) fracture; Closed displaced intra-articular fracture of right calcaneus with routine healing, subsequent encounter 02/16/2025 3:00 PM CDT Office Visit [facility] [address] [place] [phone] Hung Hale MD Aftercare following surgery of the musculoskeletal system (Primary Dx); S/P ORIF (open reduction internal fixation) fracture; Closed displaced intra-articular fracture of right calcaneus with routine healing, subsequent encounter; Loose body in right ankle 02/12/2025 Telephone [facility] Orthopedic [facility] [address] [place] [address] Hung Hale MD Medication Questions 01/08/2025 2:00 PM TECHNICIAN SUBMARINE CABLE EQUIPMENT Office Visit [facility] [address] [place] [phone] Hung Hale MD Aftercare following surgery of the musculoskeletal system (Primary Dx); S/P ORIF (open reduction internal fixation) fracture; Closed displaced intra-articular fracture of right calcaneus with routine healing, subsequent encounter 01/08/2025 1:50 PM TECHNICIAN SUBMARINE CABLE EQUIPMENT Ancillary Procedure [facility] [place] [address] Radiology [address] [place] [address] Hung Hale MD Aftercare following surgery of the musculoskeletal system 01/08/2025 1:45 PM TECHNICIAN SUBMARINE [employer]ABLE EQUIPMENT Ancillary Procedure [facility] [place] [address] Radiology [address] [place] [address] Hung Hale MD Aftercare following surgery of the musculoskeletal system from Last 3 Months Immunizations Immunization Administration Dates Next Due Influenza IIV4 (Quadrivalent) 0.5mL (24446) 08/10 Td 04/14/2000 Tdap 12/27/2018,03/26/2012 Social History Tobacco Use Types Packs/Day Years Used Date Smoking Tobacco: Former Cigarettes Smokeless Tobacco: Never Tobacco Cessation:Counseling Given: Not Answered Alcohol Use Standard Drinks/Week Comments Yes 0 [...] Mass Index 27.98 03/01/2025 8:55 AM CDT Plan of Treatment Upcoming Encounters Date Type Department Care Team (Late st Contact Info) Description 04/16/2025 9:00 AM CDT Appointment [facility] [address] [place] [phone] Hung Hale MD [address] [facility] [place] [address] Scheduled Procedures Name Priority Associated Diagnoses Date/Ti me ARTHROSCOPY ANKLE Loose body in right ankle OPEN REDUCTION INTERNAL FIXA TION CALCANEUS FRACTURE Closed displaced intra-articular fracture of right calcaneus, initial encounter Health Maintenance Due Date Last Done Comments Colon Cancer Screening Plan Due 1965 Diabetes Screening- (based o n age and BMI) 1965 Hep C Screening (Preventive Services) 1965 PSA Screening Discussion 1965 HIV Screening (Preventive Services) 1981 Adult Preventive Visit 1983 HepB Vaccine (1) 1984 Cholesterol 2000 Pneumococcal Vaccine 50+ Yrs (1 of 1 - PCV) 2015 Zoster/Shingles Vaccine (1 o f 2) 2015 COVID-19 Vaccine (1 - 2023-2 5 season) 2024 Influenza Vaccine (Season Ended) 2025 09/06/2018 DTaP/Tdap/Td Vaccine (3 - Tdap) 12/27/2028 12/27/2018, 03/26/2012, 04/14/2000 HepA Vaccine Aged Out No longer eligi ble based on patient's age to complete this topic Hib Vaccine Aged Out No longer eligi ble based on patient's age to complete this topic IPV (Polio) Vaccine Aged Out No longe r eligible based on patient's age to complete this topic MCV4 Vaccine Aged Out No longer eligi ble based on patient's age to complete this topic Meningococcal B Vaccine Aged Out No l onger eligible based on patient's age to complete this topic Procedures Procedure Name Priority Date/Time Associated Diagnosis Comments XR CALCANEUS RT 2+ VIEWS Routine 03/19/2025 9:02 AM CDT Aftercare following surgery of the musculoskeletal system XR ANKLE RT 3 VIEWS Routine 03/19/2025 9 :01 AM CDT Aftercare following surgery of the musculoskeletal system ARTHROSCOPY ANKLE 03/06/2025 10: 25 AM CDT Loose body in right ankle RINKU ARTHROSCOPY ANKLE RT Routine 03/06/2025 9:17 AM CDT EKG 03/06/2025 XR CALCANEUS RT 2+ VIEWS Routine 02/16/2025 3:10 PM CDT Aftercare following surgery of the musculoskeletal system S/P ORIF (open reduction internal fixation) fracture Closed displaced intra-articular fracture of right calcaneus with routine healing, subsequent encounter XR ANKLE RT 3 VIEWS Routine 02/16/2025 3 :09 PM CDT Aftercare following surgery of the musculoskeletal system S/P ORIF (open reduction internal fixation) fracture Closed displaced intra-articular fracture of right calcaneus with routine healing, subsequent encounter XR ANKLE RT 3 VIEWS Routine 01/08/2025 1 :55 PM TECHNICIAN SUBMARINE [employer]ABLE EQUIPMENT Aftercare following surgery of the musculoskeletal system XR CALCANEUS RT 2+ VIEWS Routine 01/08/2025 1:54 PM TECHNICIAN SUBMARINE CABLE EQUIPMENT Aftercare following surgery of the musculoskeletal system from Last 3 Months Results * XR Calcaneus Rt 2+ Views (03/19/2025 9:02 AM CDT) Only the most recent of3 resultswithin the time period is included. Anatomical Region Laterality Modality Lower Extremity, Foot, [...] Rt 3 Views (03/19/2025 9:01 AM CDT) Only the most recent of3 resultswithin the time period is included. Anatomical Region Laterality Modality Lower Extremity, Ankle, [...] MD RAD GD Final Res ult * RINKU Arthroscopy Ankle Rt (03/06/2025 9:17 AM CDT) Anatomical Region Laterality Modality Lower Extremity, Ankle Endoscopy Narrative 03/06/2025 9:17 AM CDT These images were obtained during a surgical procedure. Hung Hale MD RAD NON-REPORTABLES Final Result * EKG (03/06/2025) us Interface Provider EKG Final Resu lt from Last 3 Months [id number] [id number] [employer] [address] [id number] [facility] Advance Directives * Full Code (Latest Code Status on File) Date Activated Date Inactivated Comments 03/06/2025 10:30 AM 03/06/2025 3:19 PM Care Teams Children Counselor Relationship Specialty Start Date End Date Unassigned, Provider [address] [place] [id number] PCP - General 12/18/00
--- OUTSIDE RECORDS SUMMARY | 2025-04-09 05:36 | XMS_ITS | Encounter Summary ---
Author Organization [place] Address [address] [facility] 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 CHIEF [...] BUSTOS MD T: 003 08:35 MT: Document: [id number] [place], [place] Name: SARTHAKChristinaDIMA EMERGENCY ROOM ENCOUNTER Page 2 of 2 LCN: ER DSC: 12/28/2002 [place], [place] Name: CORA DIMA Angel MR#: : Admit Date: [id number] 1965 12/28/2002 Doctor: HELENA BUSTOS MD EMERGENCY ROOM ENCOUNTER Page 1 of 2 Electronically filed by Bang Katz 01/04/2003 5:36 PM documented in this encounter Plan of Treatment Not on file documented as of this encounter Visit Diagnoses Diagnosis EMERGENCY ROOM ENCOUNTER- Primary documented in this encounter Care Teams Celluloid Trimmer Relationship Specialty Start Date End Date Sergio Germain MD PCP - General 12/23/01 Dante Brady PA-C [address] [place] [address] Assigned Neuroscience Provider 01/22/21 02/15/21 Dante Brady PA-C [address] [place] [address] Assigned Sleep Provider 01/22/21 documented as of this encounter
--- OUTSIDE RECORDS SUMMARY | 2025-04-09 05:36 | XMS_ITS | Encounter Summary ---
Author Organization [place] Address [address] [facility] [place] [address] Care Team Providers Care Horticultural Technical Officer Name Role Phone Sergio Germain MD Primary Care Provider Dante Mackay PA-C Unavailable [phone] Dante Brady PA-C Unavailable [phone] Reason for Visit * Reason Comments Sleep Problem Encounter Details Date Type Department Care Team (Late st Contact Info) Description 02/18/2018 [facility] [place] [address] [facility] [address] [place] [phone] Gio Klein MD [address] [place] [id number] Social History Tobacco Use Types Packs/Day Years Used Date Smoking Tobacco: Every Day Cigarettes 0 Alcohol Use Standard Drinks/Week Comments No 0 (1 standard drink = 0.6 oz pur e alcohol) Sex and Gender Information Value Date Recorded Sex Assigned at Not on file 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
[2025-04-09 05:41] VITALS: BP 123/97; PULSE 90; RESP 16; TEMP 36.4; O2SAT 94; BMI 22.4
--- NOTE | 2025-04-09 05:54 | ED_ITS ---
HPI - General Adult General Chief complaint: Neck Injury/Pain Stated complaint: Neck pain- Time Seen by Provider: 04/09/25 05:53 History of Present Illness HPI narrative: neck pain that spreads into head, started last evening and he tried to go to sleep, awoke this morning and pain is much worse, unable to turn head due to pain. denies fall or trauma. has not tried any meds prior to coming 59-year-old man presenting to the emergency department with concern of neck pain. This started to ache a little bit maybe last night but then woke with intense discomfort. Can not even move his neck. no radicular symptoms. On review of record there is a history of aortic dilatation and nicotine dependence. He does make mention that there are number of the things going on. Abdomen in particular has been uncomfortable, painful. He notes that he as a hernia which is being watched. He has had some mid abdominal pain in the setting of very small daily bowel movements. He began smoking again after having quit for a few years. Began smoking again about 3 weeks ago due to increasing stress. Is worried he might have activated latent cancer now affecting his abdomen and neck. Notes concerns are based on what happened to his father. Did have a relatively unremarkable EGD little over 1 year ago and Mr. Cunha reports two years ago colonoscopy with benign polyps. Does not have any radicular symptoms to this neck pain but having a good deal of trouble moving just due to the intensity of discomfort. 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 Has sleep apnea but faithfully uses cpap. Related Data Previous Rx's ?Medication ?Instructions ?Recorded albuterol sulfate 90 mcg/actuation 1 inh inhalation QI D PRN shortness 09/12/24 aerosol inhaler of breath or wheezing #8.5 g gabrielle Allergies Allergy/AdvReac Type Severity Reaction Status Date / Time hydrocodone Allergy Mild Agitation Verified 11/07/24 21:40 oxycodone (From Percocet) Allergy Mild Agitation Verified 11/07/24 21:40 Review of Systems Status of ROS: Reports: 6 or more systems reviewed and unremarkable except as noted in History and below [facility] Medical History RLL pneumonia ?J18.9 - Pneumonia, unspecified organism (ICD-10) Surgical History Status post lumbar spinal fusion ?Z98.1 - Arthrodesis status (ICD-10) History of appendectomy ?Z90.49 - Acquired absence of other specified parts of digestive tract (ICD- 10) Family History Father No problems noted. 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 In some distress. Moaning, groaning in pain. Ice pack L ready at posterior neck. Resists any rotation of his neck. I do not appreciate pulsatile masses. He demonstrates soreness in the posterior neck musculature near the insertion at the occipital prominence. Left greater than right as it extends I think into the sternocleidomastoid as well a little bit of tension here. No midline neck or back tenderness. Abdomen is soft and appears to be nontender without mass. Perfused appears to have good strength in extremities. Const: Vital Signs, click to edit/add: Vital Signs - 24 hr 04/09/25 05:41 04/09/25 07:33 Temperature 97.6 F Pulse Rate [Pulse Oximeter] 90 Respiratory Rate 16 Blood Pressure [Ri ght Upper Arm] 123/97 H 130/90 H Pulse Oximetry 94 Oxygen Delivery Me thod Room Air Documenting provider has reviewed patient's vital signs: yes Course Vital Signs Vital signs: Initial Vital Signs Temperature 97.6 F 04/09/25 05:41 Temperature Source Temporal Artery Scan 04/09/25 05:41 Pulse Rate 90 04/09/25 05:41 Respiratory Rate 16 04/09/25 05:41 Blood Pressure 123/97 H 04/09/25 05:41 Blood Pressure Mean 105 04/09/25 05:41 Blood Pressure Position Sitting 04/09/25 05:41 Pulse Oximetry 94 04/09/25 05:41 Oxygen Delivery Method Room Air 04/09/25 05:41 Vital Signs Temperature 97.6 F 04/09/25 05:41 Pulse Rate 90 04/09/25 05:41 Respiratory Rate 16 04/09/25 05:41 Blood Pressure 123/97 H 04/09/25 05:41 Pulse Oximetry 94 04/09/25 05:41 Oxygen Delivery Method Room Air 04/09/25 05:41 Temperature 97.6 F 04/09/25 05:41 Pulse Rate 90 04/09/25 05:41 Respiratory Rate 16 04/09/25 05:41 Blood Pressure 130/90 H 04/09/25 07:33 Pulse Oximetry 94 04/09/25 05:41 Oxygen Delivery Method Room Air 04/09/25 05:41 Medications Administered Medications: Discontinued Medications Generic Name Dose Route Start Last Admin Trade Name Freq PRN Reason Stop Dose Admin Bupivacaine HCl 10 ml 04/09/25 06:11 04/09/25 06:05 Bupivacaine 0.25% 30 Ml INJECTION 04/09/25 06:12 10 ml ONCE ONE Administration Diazepam 5 mg 04/09/25 07:01 04/09/25 07:30 Diazepam 5 Mg/Ml Inj IV 04/09/25 07:02 5 mg ONCE ONE Administration Hydromorphone HCl 0.5 mg 04/09/25 07:01 04/09/25 07:24 Hydromorphone 0.5 Mg/0.5 Ml Inj IVP 04/09/25 07:02 0.5 mg ONCE ONE Administration Sodium Chloride 1,000 mls @ 1,000 mls/hr 04/09/25 07:01 04/09/25 07:57 0.9 % Sodium Chloride 1000 Ml IV 04/09/25 08:00 Infused .Q1H ONE Infusion Ketorolac Tromethamine 30 mg 04/09/25 07:01 04/09/25 07:26 Ketorolac 30 Mg/Ml Inj IVP 04/09/25 07:02 30 mg ONCE ONE Administration Medical Decision Making MDM Narrative Medical decision making narrative: I did offer given local nature of his discomfort and what I suspect is some facet irritation and muscle spasm, offered local injection with some anesthetic. Discussed risks and benefits and he decided would like to proceed. Cleansed the area with alcohol and injected 1.5 mL of bupivacaine after aspirating at the right posterior cervical upper neck musculature and similar amount in 2 locations after aspirating for blood in the left upper cervical musculature. Decided to proceed also with abdominal x-ray where might expect to find some constipation or look for any unusual air-fluid pattern to prompt further evaluation. In abdominal x-ray to pending reviewed by me shows relatively normal stool pattern. Upon return to room is crying out in this more significant pain. Feels like he is worsening was before. Re-examination does not show unusual swelling or any indication of bleeding otherwise for inside of injection. Is not having any difficulty breathing. Placed IV. Ordered for ketorolac, a dose of hydromorphone as well as diazepam. Also normal saline. On reassessment still noting pain that he can not move his neck but really more relaxed and does not appear to be in as much discomfort. In reviewing medications he notes that only oxycodone historically caused agitation. Just prior to anticipated departure he is enquiring whether not we could do more workup for his kidneys. He has been noting decreased urine out lately. This morning it was rather dark and foamy. He does not feel he can pee but would not want a catheter. Again I propose some outpatient workup. Will collect labs he can follow up with his primary care provider who thankfully tends to make himself pretty available to his patients, and he can go home with a urine cup to leave in clinic. Will do a bladder scan though to make sure that distended bladder is not contributing to some of his abdominal pains. Bladder scan is 80 - 90 mL. Medical Records Medical records reviewed: Yes I reviewed the patient's medical records Discharge Plan Discharge Clinical Impression: Cervicalgia, Abdominal pain, Nicotine dependence Patient Disposition: Home w/ Parent or Adult Condition: Improved Additional Instructions: Can wear the cervical collar as needed for comfort over this next week. I would follow-up with your primary care provider to evaluate this abdominal discomfort further. This would also be a chance to get referral for physical therapy if you need. Otherwise you might consider appointment with chiropractor locally. Stay well-hydrated. Supplement with MiraLax equivalent for now. Prescribing some P[place]ed[place] from [facility]. This can be constipating. On the days UR taking Priced[place], you might consider taking 1 to 2 dosings/tabs of senna-containing product. Also prescribing prednisone from [facility]. Please try again to quit smoking. You were successful once for a long time. You know how to do it. QuitPlan may still have quit aids. See this pamphlet. Take home urine cup for collection. Please follow this up with primary care pro vider as well as labs drawn today as requested. Prescriptions: No Action albuterol sulfate 90 mcg/actuation HFA aerosol inhaler 1 inh inhalation QID PRN (Reason: shortness of breath or wheezing) Qty: 8.5 2RF Follow Up/Referrals: Ananda Richardson MD [Primary Care Provider, Family Practice] Stand Alone Forms: [employer] Info Instructions
[2025-04-09] MEDS: BUPIVACAINE 0.25% 30 ML 10 ML INJECTION (06:05)
--- NOTE | 2025-04-09 06:11 | CRLHL7_ITS ---
For Patients: As a result of the Cures Act, medical imaging exams and procedure reports are released immediately into your electronic medical record. You may view this report before your referring provider. If you have questions, please contact your health care provider. INDICATION: Pain, not otherwise described. Constipation. COMPARISON: No recent prior comparison study. Comparison is made to a CT of the abdomen and pelvis dated 01/24/2023. TECHNIQUE: Single view of the abdomen and pelvis (2 images). FINDINGS: Nondilated bowel. No significant colonic fecal loading. No significant incidental calcifications. The visualized skeleton demonstrates no significant incidental findings. IMPRESSION: No imaging findings pertinent to the indication for the exam or significant unrelated findings. Dictated by Federico Christina MD @ 04/09/2025 7:09:02 AM (Electronically Signed)
[2025-04-09] MEDS: HYDROmorphone 0.5 mg/0.5 ml inj IVP (07:24)
[2025-04-09] MEDS: KETOROLAC 30 MG/ML inj IVP (07:26)
[2025-04-09] MEDS: diazePAM 5 MG/ML inj IV (07:30)
[2025-04-09 07:33] VITALS: BP 130/90
[2025-04-09] MEDS: 0.9 % SODIUM CHLORIDE 1000 ml 1,000 ML IV (07:43)
--- NOTE | 2025-04-09 08:51 | ED.NURSE ---
Patient was fitted with a Soft C-Collar per provider order. Patient education provided on placing and removing the collar. Patient CMS remained in tact prior to placement and after placement.
[2025-04-09 09:39] LABS: Basophils Absolute Auto 0.03 K/uL (0.00-0.30); Basophils Percent Auto 0.3 % (0.0-3.0); Eosinophils Absolute Auto 0.07 K/uL (0.00-0.50); Eosinophils Percent Auto 0.7 % (0.0-7.0); Hematocrit 41.5 % (37.0-53.0); Hemoglobin* 13.3 gm/dL (13.5-17.5); Immature Granulocytes Abs Auto 0.02 K/uL (0.00-0.30); Immature Granulocytes Pct Auto 0.2 %; Lymphocytes Percent Auto 17.4 % (20-44); Mean Corpuscular HGB Conc 32 gm/dL (32-36); Mean Corpuscular Hemoglobin 27 pg (26-34); Mean Corpuscular Volume 85 fL (80-100); Monocytes Percent Auto 7.4 % (0.0-11.0); Platelet Count* 238 K/uL (140-440); RDW Coefficient of Variation % 13.3 % (11.5-15.5); Red Blood Count 4.89 m/uL (4.30-5.90)
[2025-04-09 09:46] LABS: Slide Review Reflex No
[2025-04-09 09:51] LABS: Chloride* 107 mmol/L (96-114); Potassium* 3.6 mmol/L (3.6-5.1); Sodium* 141 mmol/L (135-149)
[2025-04-09 09:55] LABS: Anion Gap 6 mEq/L (7-15); Blood Urea Nitrogen* 12 mg/dL (7-30); Calcium* 8.8 mg/dL (8.4-10.6); Carbon Dioxide* 28 mmol/L (20-32); Creatinine* 0.7 mg/dL (0.5-1.5); Est. Creatinine Clearance* 107.16; Estimated Glomerular Filt Rate 106 ml/min; Glucose* 97 mg/dL (60-115)
[2025-04-09 09:58] LABS: C Reactive Protein* 3.6 mg/dL (0.5-1.0)
[2025-04-09 16:19] LABS: Appearance Urine Clear (Clear); Bilirubin Urine Negative (Negative); Blood Urine Negative (Negative); Color Urine Dark yellow (Yellow); Glucose Urine Negative (Negative); Ketones Urine Trace (Negative); Leukocyte Esterase Urine Negative (Negative); Nitrite Urine Negative (Negative); Protein Urine 2+ (Negative); Specific Gravity Urine >= 1.030 (1.000-1.030); pH Urine 6.5 (5.0-8.5)
[2025-04-09 16:22] LABS: RBC Urine 0-2 (0-2); WBC Urine 0-2 (0-5)
== END 2025-04-09 09:30 | disposition home or self-care (01) ==
PROVIDERS: Emergency Provider Family Medicine; PCP Family Medicine
DX: M54.2 Cervicalgia (principal); R10.9 Unspecified abdominal pain; G47.30 Sleep apnea, unspecified; Z99.89 Dependence on other enabling machines and devices
CPT/HCPCS: 36415; 51798; 74018; 80048; 81001; 85025; 86140; 96374; 96375; 99284; J0665; J1171; J1885; J3360; J7030

== ENCOUNTER 2025-09-18 08:30 | Outpatient (CLI) | payer OTHER, SELFPAY | END 2025-09-18 08:31 | disposition home or self-care (01) | PROVIDERS: PCP Family Medicine; Visit Provider Family Medicine | DX: Z13.29 Encounter for screening for other suspected endocrine disorder (principal); Z12.5 Encounter for screening for malignant neoplasm of prostate; E78.2 Mixed hyperlipidemia; B19.20 Unspecified viral hepatitis C without hepatic coma | CPT/HCPCS: 80053; 80061; 84443; G0103 ==

== ENCOUNTER 2025-09-21 07:42 | Outpatient (CLI) | payer OTHER, SELFPAY ==
--- NOTE | 2025-09-21 08:00 | CRLHL7_ITS ---
For Patients: As a result of the Century Cures Act, medical imaging exams and procedure reports are released immediately into your electronic medical record. You may view this report before your referring provider. If you have questions, please contact your health care provider. INDICATION: Lung cancer screening. History of smoking. TECHNIQUE: Low-dose lung cancer screening non-contrast CT chest. Dose reduction techniques were used. COMPARISON: 07.13.22 FINDINGS: NODULES: 3 millimeter nodule right upper lobe, unchanged. LUNGS AND PLEURA: Emphysema. MEDIASTINUM: No adenopathy. CORONARY ARTERY CALCIFICATION: Mild. LIMITED UPPER ABDOMEN: Unremarkable. MUSCULOSKELETAL: No fracture. IMPRESSION: Negative for lung cancer screening purposes. LUNG-RADS CATEGORY: 2: Benign. RADIOLOGIST RECOMMENDATION: Continue annual screening, if eligible, with low-dose CT chest in 12 months. Please note that all CT scans at this facility use dose modulation, iterative reconstruction, and/or weight-based dosing when appropriate to reduce radiation dose to as low as reasonably achievable. Dictated by Juno Dominguez MD @ 09/21/2025 10:04:14 AM (Electronically Signed)
== END 2025-09-21 07:43 | disposition home or self-care (01) ==
LOC: CT 07:44
PROVIDERS: PCP Family Medicine; Visit Provider Family Medicine
DX: Z12.2 Encounter for screening for malignant neoplasm of respiratory organs (principal); F17.210 Nicotine dependence, cigarettes, uncomplicated
CPT/HCPCS: 71271